=== PATIENT | male | born 1960 | race American Indian/Alaskan Native ===

== ENCOUNTER 2020-12-23 08:39 | Inpatient (IN) | payer OTHER ==
[2020-12-23] MEDS ORDERED: HEPARIN 10,000 UNITS/10 ML VIAL IV PRN (09:13)
--- NOTE | 2020-12-23 09:13 | Emergency Department Report ---
ED General Adult HPI - General Chief complaint: Dyspnea/Respdistress Stated complaint: CP/PEREZ Time Seen by Provider: 12/23/20 09:12 Source: patient Mode of arrival: Ambulatory Limitations: No Limitations - History of Present Illness Initial comments: Patient presents with chest pain. He started having a substernal tightness that started this morning. Symptoms are worse with exertion. He feels short of breath. He has no cough or congestion. There has been no vomiting or diarrhea. There is no recent travel or trauma. Is never had symptoms like this before. He has not been diaphoretic. Patient states that the pain just started this morning. He does not have a history of heart disease. There is no family history of heart disease. He does smoke. ED Review of Systems ROS: Stated complaint: CP/PEREZ Other details as noted in HPI Comment: All other systems reviewed and negative Constitutional: denies: fever Eyes: denies: eye pain ENT: denies: throat pain Respiratory: denies: cough Cardiovascular: as per HPI Endocrine: denies: unexplained weight loss Gastrointestinal: denies: abdominal pain Genitourinary: denies: dysuria Musculoskeletal: denies: back pain Skin: denies: rash Neurological: denies: headache Hematological/Lymphatic: denies: easy bruising ED Past Medical Hx - Past Medical History Previous Medical History?: Yes Additional medical history: Left knee pain - Surgical History Past Surgical History?: Yes Additional Surgical History: left knee surgery - Family History Family history: no significant ( No history of heart disease) - Social History Smoking Status: Current Every Day Smoker Substance Use Type: Alcohol, Marijuana, Other ( we discussed tobacco cessation x3 minutes) ED Physical Exam - General Limitations: No Limitations, Other ( pulse ox was noted normal at 98%) General appearance: alert, in no apparent distress - Head Head exam: Present: atraumatic, normocephalic, normal inspection - Eye Eye exam: Present: normal appearance, EOMI. Absent: scleral icterus - ENT ENT exam: Present: normal exam, normal orophraynx, mucous membranes dry - Neck Neck exam: Present: normal inspection. Absent: meningismus - Respiratory Respiratory exam: Present: normal lung sounds bilaterally. Absent: respiratory distress - Cardiovascular Cardiovascular Exam: Present: normal rhythm - GI/Abdominal GI/Abdominal exam: Present: soft. Absent: distended, tenderness, pulsatile mass - Extremities Exam Extremities exam: Present: normal capillary refill. Absent: pedal edema, calf tenderness - Back Exam Back exam: Absent: CVA tenderness (R), CVA tenderness (L) - Neurological Exam Neurological exam: Present: alert, oriented X3, CN II-XII intact. Absent: motor sensory deficit - Psychiatric Psychiatric exam: Present: anxious - Skin Skin exam: Present: warm, dry ED Course Vital Signs 12/23/20 09:07 Temperature 98.8 F Pulse Rate 68 Respiratory 22 Rate Blood Pressure 123/89 O2 Sat by Pulse 98 Oximetry - Reevaluation(s) Reevaluation #1: 12/23/20 09:13 0910-EKG was noted. Code STEMI was activated. Reevaluation #2: 12/23/20 09:18 Dr. Downs was notified for cardiology. Reevaluation #3: 12/23/20 09:19 Hospitalist was notified ED Medical Decision Making - EKG Data -: EKG Interpreted by Nv EKG shows normal: sinus rhythm, axis, intervals Rate: normal - EKG Data Interpretation: acute TN 12/23/20 09:21 EKG has normal intervals including a QRS of 98 and a QT corrected of 408. There is ST elevation in V2 through V5 with reciprocal changes in 2, 3, aVF. - Medical Decision Making patient presents with chest pain and evidence of STEMI on EKG. Cardiology has been notified. He is taken urgently to the [facility]. The STEMI protocol has been started. We have discussed tobacco cessation. Patient will be admitted. He can be managed further as an inpatient patient has no pulse deficit there was just aortic dissection. Symptoms are nonpleuritic and he has no diminished breath sounds suggestive of pneumothorax. He has no cough or adventitial breath sounds suggestive of pneumonia. He denies recent travel or upper respiratory illness. I do not believe this represents pulmonary embolism or coronavirus. Critical Care Time: Yes Critical care time in (mins) excluding proc time.: 30 Critical care attestation.: If time is entered above; I have spent that time in minutes in the direct care of this critically ill patient, excluding procedure time. ED Disposition Clinical Impression: Tobacco abuse STEMI (ST elevation myocardial infarction) Qualifiers: Involved coronary artery: unspecified coronary artery Qualified Code(s): I21.3 - ST elevation (STEMI) myocardial infarction of unspecified site Disposition: ADMITTED INPATIENT Is pt being admited?: Yes Does the pt Need Aspirin: Yes Condition: Stable
[2020-12-23] MEDS: ASPIRIN 81 MG TAB CHEW PO ONE ×2 (09:29→14:57)
[2020-12-23] MEDS ORDERED: HEPARIN 10,000 UNITS/10 ML VIAL IV ONE (09:30)
[2020-12-23 09:32] LABS: Basophils # (Auto) 0.1 K/mm3 (0.0-0.1); Basophils % (Auto) 0.5 % (0.0-1.8); Eosinophils # (Auto) 0.2 K/mm3 (0.0-0.4); Eosinophils % (Auto) 2.1 % (0.0-4.3); Hematocrit 46.6 % (35.5-45.6); Hemoglobin 15.4 gm/dl (11.8-15.2); Lymphocytes # (Auto) 1.6 K/mm3 (1.2-5.4); Lymphocytes % (Auto) 16.9 % (13.4-35.0); Mean Corpuscular HGB Conc 33 % (32-34); Mean Corpuscular Volume 97 fl (84-94); Monocytes # (Auto) 0.6 K/mm3 (0.0-0.8); Monocytes % (Auto) 6.6 % (0.0-7.3); Platelet Count 174 K/mm3 (140-440); Red Blood Count 4.79 M/mm3 (3.65-5.03); Red Cell Distribution Width 15.6 % (13.2-15.2)
--- NOTE | 2020-12-23 09:39 | XRay Report ---
CHEST 1 VIEW INDICATION / CLINICAL INFORMATION: chest pain. COMPARISON: None available. FINDINGS: SUPPORT DEVICES: None. HEART / MEDIASTINUM: No significant abnormality. LUNGS / PLEURA: No significant pulmonary or pleural abnormality. No pneumothorax. ADDITIONAL FINDINGS: No significant additional findings. IMPRESSION: 1. No acute findings. Signer Name: Kalin Marcus MD Signed: 12/23/2020 9:35 AM Workstation Name: [id number]
[2020-12-23 09:45] LABS: INR 0.98 (0.87-1.13)
[2020-12-23 09:46] LABS: Partial Thromboplastin Time 22.6 Sec. (24.2-36.6)
[2020-12-23] MEDS ORDERED: HEPARIN/NS 5000 UNIT/500ML 1,000 ML IR ONE (09:49)
[2020-12-23] MEDS ORDERED: NITROGLYCERIN SYRINGE 3 ML ONE (09:50)
[2020-12-23] MEDS ORDERED: LIDOCAINE (2%) 20 MG/1 ML VIAL 20 ML MDV INFILTRATI ONE (09:50)
[2020-12-23] MEDS ORDERED: VERAPAMIL 5 MG/2 ML INJ ONE (09:50)
[2020-12-23 09:54] LABS: BUN/Creatinine Ratio 15; Blood Urea Nitrogen 15 mg/dL (9-20); Calcium 9.7 mg/dL (8.4-10.2); Hemolysis Index 9
[2020-12-23] MEDS ORDERED: SODIUM CHLORIDE 0.9% 1000 ML 1,000 ML ONE (09:54)
[2020-12-23] MEDS: HEPARIN 10,000 UNITS/10 ML VIAL ONE ×3 (10:04→10:51)
[2020-12-23] MEDS: MIDAZOLAM 2 MG/2 ML INJ ONE ×2 (10:05→10:16)
[2020-12-23] MEDS: fentaNYL 100 MCG/2 ML INJ ONE ×2 (10:05→10:16)
[2020-12-23] MEDS ORDERED: TIROFIBAN/NS 12,500 MCG/250 ML BAG IV ONE (10:09)
[2020-12-23] MEDS ORDERED: AMIODARONE 150 MG/3 ML INJ IV ONE (10:17)
[2020-12-23] MEDS ORDERED: HEPARIN/NS 5000 UNIT/500ML 500 ML IR ONE (10:29)
[2020-12-23 10:43] LABS: HDL Cholesterol 64 mg/dL (40-59); LDL Cholesterol,Direct 120 mg/dL (50-130)
[2020-12-23] MEDS ORDERED: TICAGRELOR 90 MG TAB ONE (10:50)
[2020-12-23] MEDS ORDERED: NITROGLYCERIN DRIP 50 MG/250 ML BOTTLE ONE (10:52)
[2020-12-23] MEDS ORDERED: ALUM-MAG HYDROXIDE-SIMETHICONE 200-200-20MG/5ML ORAL LIQD 30 ML ONE (11:02)
[2020-12-23] MEDS ORDERED: HYDROcodone/ACETAMINOPHEN 5-325 MG TAB PO PRN (11:13)
[2020-12-23] MEDS ORDERED: NITROGLYCERIN DRIP 50 MG/250 ML BOTTLE IV ONE (11:13)
[2020-12-23] MEDS ORDERED: SODIUM CHLORIDE 0.9% 1000 ML 1,000 ML IV SCH (11:15)
[2020-12-23] MEDS ORDERED: PANTOPRAZOLE 40 MG TAB PO ONE (11:24)
--- NOTE | 2020-12-23 11:31 | Consultation ---
History of Present Illness Consult date: 12/23/20 Requesting physician: YARELY HERNANDEZ Consult reason: chest pain History of present illness: Patient is a 60-year-old male with no significant past medical history who presented via EMS secondary to severe chest pain. Patient apparently woke up with substernal chest pain associated with significant diaphoresis and shortness of breath. Noted to have acute anterior wall ST elevation [place]. Code STEMI was activated. Patient reports no prior cardiac history. Currently on no medications. Has not taken his vaccine yet. Reports no sick contacts. Reports no fever or flulike symptoms. Patient was taken to the [facility] and noted to have 100% occlusion of his LAD. Patient is status post PCI of the LAD. Currently reports no chest pain or shortness of breath. Patient is being admitted to the intensive care unit Past History Past Medical History: No medical history Past Surgical History: No surgical history Social history: smoking Family history: no significant family history Medications and Allergies Allergies Allergy/AdvReac Type Severity Reaction Status Date / Time No Known Allergies Allergy Unverified 12/23/20 09:22 Active Meds: Active Medications Hydrocodone Bitart/Acetaminophen (Hydrocodone/Acetaminophen 5-325 Mg Tab) 1 each PO Q6H PRN PRN Reason: Pain, Moderate (4-6) Aspirin (Aspirin 81 Mg Tab Chew) 81 mg PO QDAY [facility] Atorvastatin Calcium (Atorvastatin 40 Mg Tab) 80 mg PO QHS [facility] Carvedilol (Carvedilol 3.125 Mg Tab) 3.125 mg PO BID [facility] Heparin Sodium (Porcine) (Heparin 10,000 Units/10 Ml Vial) 3,100 unit 40 unit/kg (3100 unit) IV Q6H PRN PRN Reason: Anti-Xa Assay less than 0.1 un Sodium Chloride (Nacl 0.9% 1000 Ml) 1,000 mls @ 50 mls/hr IV DIRECT [facility] Nitroglycerin/Dextrose (Tridil Drip 50mg/250ml) 50 mg in 250 mls @ 3 mls/hr IV TITR ONE; Protocol Stop: 12/26/20 22:32 Tirofiban/Sodium Chloride (Aggrastat Drip (12.5 Mg/250 Ml)) 12,500 mcg in 250 mls @ 0 mls/hr IV DIRECT [facility]ITH[facility]; Protocol Pantoprazole Sodium (Pantoprazole 40 Mg Tab) 40 mg PO DAILY ONE Stop: 12/23/20 11:25 Ticagrelor (Ticagrelor 90 Mg Tab) 90 mg PO BID [facility] Review of Systems All systems: negative (Except as mentioned in H&P) Physical Examination Vital Signs Temp Pulse Resp BP Pulse Ox 98.8 F 68 22 123/89 98 12/23/20 09:07 12/23/20 09:07 12/23/20 09:07 12/23/20 09:07 12/23/20 09:07 General appearance: no acute distress HEENT: Positive: Normocephaly Neck: Positive: neck supple Cardiac: Positive: Reg Rate and Rhythm Lungs: Positive: clear to auscultation Neuro: Positive: Grossly Intact Abdomen: Positive: Unremarkable Male genitourinary: Positive: deferred Skin: Positive: Rash Extremities: Present: normal Results 12/23/20 09:27 12/23/20 09:27 Coagulation 12/23/20 Range/Units 09:27 PT 13.6 (12.2-14.9) Sec. INR 0.98 (0.87-1.13) APTT 22.6 L (24.2-36.6) Sec. Lipids 12/23/20 Range/Units 09:27 Triglycerides 101 (2-149) mg/dL Cholesterol 199 (50-199) mg/dL HDL Cholesterol 64 H (40-59) mg/dL Cholesterol/HDL Ratio 3.10 % CBC 12/23/20 Range/Units 09:27 WBC 9.5 (4.5-11.0) K/mm3 RBC 4.79 (3.65-5.03) M/mm3 Hgb 15.4 H (11.8-15.2) gm/dl Hct 46.6 H (35.5-45.6) % Plt Count 174 (140-440) K/mm3 Lymph # (Auto) 1.6 (1.2-5.4) K/mm3 [place] # (Auto) 0.6 (0.0-0.8) K/mm3 Eos # (Auto) 0.2 (0.0-0.4) K/mm3 Baso # (Auto) 0.1 (0.0-0.1) K/mm3 Comprehensive Metabolic Panel 12/23/20 Range/Units 09:27 Sodium 142 (137-145) mmol/L Potassium 3.9 (3.6-5.0) mmol/L Chloride 105.0 (98-107) mmol/L Carbon Dioxide 24 (22-30) mmol/L BUN 15 (9-20) mg/dL Creatinine 1.0 (0.8-1.3) mg/dL Glucose 140 H (75-100) mg/dL Calcium 9.7 (8.4-10.2) mg/dL EKG interpretations - Telemetry EKG Rhythm: Sinus Bradycardia (Acute anterior wall ST elevation SC) Assessment and Plan Impression 1. Acute anterior ST elevation [place] 2. Status post primary PCI of the totally occluded LAD with drug-eluting stent 3. Residual coronary artery disease including significant mid and distal right coronary artery stenosis, PDA stenosis and [employer]ER of the PLB. Significant stenosis of a small caliber circumflex as well 4. Ischemic cardiomyopathy EF around 15 to 20% Plan 1. Aspirin Brilinta statins and beta-blockers 2. Aggrastat for 18 hours 3. Low-dose nitro (patient had a significantly elevated LVEDP at 40 mmHg) 4. Cautious use of diuretics 5. 2D echo 6. Optimize medical therapy for ischemic 7. Once stable may be referred to [facility] center for PCI of the right coronary artery 8. Condition highly critical.
[2020-12-23] MEDS ORDERED: FUROSEMIDE 20 MG/2 ML INJ IV ONE (11:41)
--- NOTE | 2020-12-23 11:54 | History and Physical Report ---
History of Present Illness Chief complaint: Chest pain History of present illness: Patient is a 60-year-old male with no significant past medical history who presented via EMS secondary to severe chest pain. Patient apparently woke up with substernal chest pain associated with significant diaphoresis and shortness of breath. Noted to have acute anterior wall ST elevation [place]. Code STEMI was activated. Patient reports no prior cardiac history. Currently on no medications. Has not taken his vaccine yet. Reports no sick contacts. Reports no fever or flulike symptoms. Patient was taken to the [facility] and noted to have 100% occlusion of his LAD. Patient is status post PCI of the LAD. Currently reports no chest pain or shortness of breath. Patient is being admitted to the intensive care unit. discussed with cardiology and icu physicians about patient case. Past History Past Medical History: No medical history Past Surgical History: No surgical history Social history: smoking Family history: no significant family history Medications and Allergies Allergies Allergy/AdvReac Type Severity Reaction Status Date / Time No Known Allergies Allergy Unverified 12/23/20 09:22 Active Meds: Active Medications Hydrocodone Bitart/Acetaminophen (Hydrocodone/Acetaminophen 5-325 Mg Tab) 1 each PO Q6H PRN PRN Reason: Pain, Moderate (4-6) Aspirin (Aspirin 81 Mg Tab Chew) 81 mg PO QDAY [facility] Atorvastatin Calcium (Atorvastatin 40 Mg Tab) 80 mg PO QHS [facility] Carvedilol (Carvedilol 3.125 Mg Tab) 3.125 mg PO BID [facility] Furosemide (Furosemide 20 Mg/2 Ml Inj) 20 mg IV TID ONE Stop: 12/23/20 11:42 Heparin Sodium (Porcine) (Heparin 10,000 Units/10 Ml Vial) 3,100 unit 40 unit/kg (3100 unit) IV Q6H PRN PRN Reason: Anti-Xa Assay less than 0.1 un Sodium Chloride (Nacl 0.9% 1000 Ml) 1,000 mls @ 50 mls/hr IV DIRECT [facility] Nitroglycerin/Dextrose (Tridil Drip 50mg/250ml) 50 mg in 250 mls @ 3 mls/hr IV TITR ONE; Protocol Stop: 12/26/20 22:32 Tirofiban/Sodium Chloride (Aggrastat Drip (12.5 Mg/250 Ml)) 12,500 mcg in 250 mls @ 13.5 mls/hr IV DIRECT [facility]; Protocol Stop: 12/24/20 06:00 Ticagrelor (Ticagrelor 90 Mg Tab) 90 mg PO BID [facility] Review of Systems All systems: negative Cardiovascular: chest pain Respiratory: shortness of breath Exam - Constitutional Vitals: Temp Pulse Resp BP Pulse Ox 98.8 F 65 16 136/92 100 12/23/20 09:07 12/23/20 09:31 12/23/20 09:31 12/23/20 09:31 12/23/20 09:31 - EENT Eyes: Present: PERRL, EOM intact ENT: hearing intact, clear oral mucosa, dentition normal - Neck Neck: Present: supple, normal ROM - Respiratory Respiratory effort: normal - Extremities Extremities: no ischemia, pulses intact, pulses symmetrical Peripheral Pulses: within normal limits - Abdominal General gastrointestinal: Present: non-tender, non-distended, normal bowel sounds - Integumentary Integumentary: Present: clear (plesae refer to nursing assessement for full exam.), warm, dry HEART Score - HEART Score Troponin: Troponin T 0.224 ng/mL (0.00-0.029) H* 12/23/20 09:27 Results - Labs CBC & Chem 7: 12/23/20 09:27 12/23/20 09:27 Labs: Laboratory Last Values WBC 9.5 K/mm3 (4.5-11.0) 12/23/20 09:27 RBC 4.79 M/mm3 (3.65-5.03) 12/23/20 09:27 Hgb 15.4 gm/dl (11.8-15.2) H 12/23/20 09:27 Hct 46.6 % (35.5-45.6) H 12/23/20 09:27 MCV 97 fl (84-94) H 12/23/20 09:27 MCH 32 pg (28-32) 12/23/20 09:27 MCHC 33 % (32-34) 12/23/20 09:27 RDW 15.6 % (13.2-15.2) H 12/23/20 09:27 Plt Count 174 K/mm3 (140-440) 12/23/20 09:27 Lymph % (Auto) 16.9 % (13.4-35.0) 12/23/20 09:27 [place] % (Auto) 6.6 % (0.0-7.3) 12/23/20 09: Eos % (Auto) 2.1 % (0.0-4.3) 12/23/20 09: Baso % (Auto) 0.5 % (0.0-1.8) 12/23/20 09: Lymph # (Auto) 1.6 K/mm3 (1.2-5.4) 12/23/20 09: [place] # (Auto) 0.6 K/mm3 (0.0-0.8) 12/23/20 09: Eos # (Auto) 0.2 K/mm3 (0.0-0.4) 12/23/20 09: Baso # (Auto) 0.1 K/mm3 (0.0-0.1) 12/23/20 09: Seg Neutrophils % 73.9 % (40.0-70.0) H 12/23/20 09: Seg Neutrophils # 7.0 K/mm3 (1.8-7.7) 12/23/20 09: PT 13.6 Sec. (12.2-14.9) 12/23/20 09: INR 0.98 (0.87-1.13) 12/23/20 09: APTT 22.6 Sec. (24.2-36.6) L 12/23/20 09:27 Sodium 142 mmol/L (137-145) 12/23/20 09: Potassium 3.9 mmol/L (3.6-5.0) 12/23/20 09: Chloride 105.0 mmol/L (98-107) 12/23/20 09: Carbon Dioxide 24 mmol/L (22-30) 12/23/20 09: Anion Gap 17 mmol/L 12/23/20 09: BUN 15 mg/dL (9-20) 12/23/20 09: Creatinine 1.0 mg/dL (0.8-1.3) 12/23/20 09: Estimated GFR > 60 ml/min 12/23/20 09: BUN/Creatinine Ratio 15 % 12/23/20 09: Glucose 140 mg/dL (75-100) H 12/23/20 09:27 Calcium 9.7 mg/dL (8.4-10.2) 12/23/20 09: Troponin T 0.224 ng/mL (0.00-0.029) H* 12/23/20 09: Triglycerides 101 mg/dL (2-149) 12/23/20 09: Cholesterol 199 mg/dL (50-199) 12/23/20 09: LDL Cholesterol Direct 120 mg/dL (50-130) 12/23/20 09: HDL Cholesterol 64 mg/dL (40-59) H 12/23/20 09: Cholesterol/HDL Ratio 3.10 % 12/23/20 09: Blood Type O POSITIVE 12/23/20 09: Antibody Screen Negative 12/23/20 09: Assessment and Plan Assessment and plan: STEMI Intervention by Dr. Downs on 12/23/2020. Cath impression per cardiology 1. Acute anterior ST elevation [place] 2. Status post primary PCI of the totally occluded LAD with drug-eluting stent 3. Residual coronary artery disease including significant mid and distal right coronary artery stenosis, PDA stenosis and [employer] M[employer] of the PLB. Significant stenosis of a small caliber circumflex as well 4. Ischemic cardiomyopathy EF around 15 to 20% Troponin 0.224 Chest x-ray negative Admit to ICU for postop management Nitro drip Aggrastat for 18 hours Aspirin/Brilinta/BB/statin ICU consultation Cardiology following, recommends possible transfer for [employer] intervention on RCA. Nicotine abuse Counseled on smoking cessation 10+ minutes
--- NOTE | 2020-12-23 11:54 | Progress Note ---
Hospitalist Physical - Constitutional Vitals: Temp Pulse Resp BP Pulse Ox 98.8 F 65 16 136/92 100 12/23/20 09:07 12/23/20 09:31 12/23/20 09:31 12/23/20 09:31 12/23/20 09:31 General appearance: Present: no acute distress HEART Score - HEART Score Troponin: Troponin T 0.224 ng/mL (0.00-0.029) H* 12/23/20 09:27 Results - Labs CBC & Chem 7: 12/23/20 09:27 12/23/20 09:27 Labs: Laboratory Last Values WBC 9.5 K/mm3 (4.5-11.0) 12/23/20 09: RBC 4.79 M/mm3 (3.65-5.03) 12/23/20 09: Hgb 15.4 gm/dl (11.8-15.2) H 12/23/20 09: Hct 46.6 % (35.5-45.6) H 12/23/20 09: MCV 97 fl (84-94) H 12/23/20 09: MCH 32 pg (28-32) 12/23/20 09: MCHC 33 % (32-34) 12/23/20 09: RDW 15.6 % (13.2-15.2) H 12/23/20 09: Plt Count 174 K/mm3 (140-440) 12/23/20 09: Lymph % (Auto) 16.9 % (13.4-35.0) 12/23/20 09: [place] % (Auto) 6.6 % (0.0-7.3) 12/23/20 09: Eos % (Auto) 2.1 % (0.0-4.3) 12/23/20 09: Baso % (Auto) 0.5 % (0.0-1.8) 12/23/20: Lymph # (Auto) 1.6 K/mm3 (1.2-5.4) 12/23/20 09: [place] # (Auto) 0.6 K/mm3 (0.0-0.8) 12/23/20 09: Eos # (Auto) 0.2 K/mm3 (0.0-0.4) 12/23/20 09: Baso # (Auto) 0.1 K/mm3 (0.0-0.1) 12/23/20 09: Seg Neutrophils % 73.9 % (40.0-70.0) H 12/23/20 09: Seg Neutrophils # 7.0 K/mm3 (1.8-7.7) 12/23/20 09: PT 13.6 Sec. (12.2-14.9) 12/23/20 09: INR 0.98 (0.87-1.13) 12/23/20 09: APTT 22.6 Sec. (24.2-36.6) L 12/23/20 09: Sodium 142 mmol/L (137-145) 12/23/20 09: Potassium 3.9 mmol/L (3.6-5.0) 12/23/20 09: Chloride 105.0 mmol/L (98-107) 12/23/20 09: Carbon Dioxide 24 mmol/L (22-30) 12/23/20 09: Anion Gap 17 mmol/L 12/23/20 09: BUN 15 mg/dL (9-20) 12/23/20 09: Creatinine 1.0 mg/dL (0.8-1.3) 12/23/20 09: Estimated GFR > 60 ml/min 12/23/20 09: BUN/Creatinine Ratio 15 % 12/23/20 09: Glucose 140 mg/dL (75-100) H 12/23/20 09: Calcium 9.7 mg/dL (8.4-10.2) 12/23/20 09: Troponin T 0.224 ng/mL (0.00-0.029) H* 12/23/20 09: Triglycerides 101 mg/dL (2-149) 12/23/20 09: Cholesterol 199 mg/dL (50-199) 12/23/20 09: LDL Cholesterol Direct 120 mg/dL (50-130) 12/23/20 09: HDL Cholesterol 64 mg/dL (40-59) H 12/23/20 09: Cholesterol/HDL Ratio 3.10 % 12/23/20 09: Blood Type O POSITIVE 12/23/20 09:27 Antibody Screen Negative 12/23/20 09:27 Active Medications - Current Medications Current Medications: Generic Name Dose Route Start Last Admin Trade Name Freq PRN Reason Stop Dose Admin Hydrocodone Bitart/Acetaminophen 1 each 12/23/20 11:13 Hydrocodone/Acetaminophen 5-325 Mg Tab PO Q6H PRN Pain, Moderate (4-6) Aspirin 81 mg 12/24/20 10:00 Aspirin 81 Mg Tab Chew PO QDAY [facility] Atorvastatin Calcium 80 mg 12/23/20 22:00 Atorvastatin 40 Mg Tab PO QHS [facility] Carvedilol 3.125 mg 12/23/20 22:00 Carvedilol 3.125 Mg Tab PO BID [facility] Furosemide 20 mg 12/23/20 11:41 Furosemide 20 Mg/2 Ml Inj IV 12/23/20 11:42 TID ONE Heparin Sodium (Porcine) 3,100 unit 12/23/20 09:13 Heparin 10,000 Units/10 Ml Vial 40 unit/kg (3100 unit) IV Q6H PRN Anti-Xa Assay less than 0.1 un Sodium Chloride 1,000 mls @ 50 mls/hr 12/23/20 11:15 Nacl 0.9% 1000 Ml IV DIRECT [facility] Nitroglycerin/Dextrose 50 mg in 250 mls @ 3 mls/hr 12/23/20 11:13 Tridil Drip 50mg/250ml IV 12/26/20 22:32 TITR ONE Protocol 10 MCG/MIN Tirofiban/Sodium Chloride 12,500 mcg in 250 mls @ 13.5 mls/hr 12/23/20 12:00 Aggrastat Drip (12.5 Mg/250 Ml) IV 12/24/20 06:00 DIRECT KAVITHA Protocol Per Protocol Ticagrelor 90 mg 12/23/20 22:00 Ticagrelor 90 Mg Tab PO BID [facility]
[2020-12-23] MEDS ORDERED: FUROSEMIDE 20 MG/2 ML INJ ONE (11:56)
[2020-12-23] MEDS ORDERED: TIROFIBAN/NS 12,500 MCG/250 ML BAG IV SCH (12:00)
--- NOTE | 2020-12-23 12:28 | Electrocardiograph Report ---
[facility] Test Date: 2020-12-23 Test Time: 09:07:27 Pat Name: BRISEIDA RODRIGUEZ Department: Room: [place] [address] Gender: M Mold Holder: CONNIE : 1960 Requested By: CLAYTON DU Order Number: [id number] Reading MD: Dimitri Morrell Measurements Intervals [place] Rate: 59 P: 71 TX: 135 QRS: -26 QRSD: 98 T: -51 QT: 408 QTc: 406 Interpretive Statements Sinus bradycardia Probable left atrial enlargement Anterior infarct, acute No previous ECG available for comparison Electronically Signed On 12-23-2020 12:28:22 EDT by Dimitri Morrell
[2020-12-23] MEDS ORDERED: ONDANSETRON 4 MG/2 ML INJ IV PRN (15:08)
[2020-12-23] MEDS ORDERED: ONDANSETRON 4 MG/2 ML INJ ONE (15:09)
[2020-12-23] MEDS: carvediloL 3.125 MG TAB PO SCH (23:00)
[2020-12-23] MEDS: TICAGRELOR 90 MG TAB PO SCH (23:00)
[2020-12-24 06:24] LABS: Basophils % (Auto) 0.2 % (0.0-1.8); Eosinophils % (Auto) 0.1 % (0.0-4.3); Hematocrit 45.5 % (35.5-45.6); Hemoglobin 15.1 gm/dl (11.8-15.2); Lymphocytes # (Auto) 0.8 K/mm3 (1.2-5.4); Lymphocytes % (Auto) 6.7 % (13.4-35.0); Mean Corpuscular HGB Conc 33 % (32-34); Mean Corpuscular Volume 98 fl (84-94); Monocytes % (Auto) 8.1 % (0.0-7.3); Platelet Count 152 K/mm3 (140-440); Red Blood Count 4.66 M/mm3 (3.65-5.03); Red Cell Distribution Width 15.4 % (13.2-15.2)
[2020-12-24 06:51] LABS: Alanine Aminotransferase 92 units/L (7-56); Albumin 3.6 g/dL (3.9-5); BUN/Creatinine Ratio 20; Blood Urea Nitrogen 20 mg/dL (9-20); Calcium 8.8 mg/dL (8.4-10.2); Hemolysis Index 176
--- NOTE | 2020-12-24 07:25 | Progress Note ---
Assessment and Plan Assessment and plan: Patient is a 60-year-old male with no significant past medical history who presented via EMS secondary to severe chest pain. Taken to photonic laboratory technician by Dr. Downs on 12/23/2020 with subsequent SHE placement in LAD. Hospital course to date 12/24/2020: Patient vitals show tachypneic respiration and patient now requiring 2 L nasal cannula. Interval development of pulmonary edema this morning as demonstrated on the chest x-ray. Discontinued IV maintenance fluids and ordered Lasix 40 mg IV x1. Negative for influenza and covid. Additional dose of Lasix this evening ordered. Will follow pulm and cardio recs Assessment and plan #[address] Downs on 12/23/2020. Cath impression per cardiology 1. Acute anterior ST elevation CT 2. Status post primary PCI of the totally occluded LAD with drug-eluting stent 3. 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 Significant stenosis of a small caliber circumflex as well 4. Ischemic cardiomyopathy EF around 15 to 20% Troponin 0.224 Chest x-ray negative Admit to ICU for postop management Nitro drip Aggrastat for 18 hours Aspirin/Brilinta/BB/statin ICU consultation Cardiology following, recommends possible transfer for TOBACCO FEEDER CATCHER intervention on RCA. #2 Heart Failure with Reduced Ejection Fraction - EF : 20% - management as above - discontinued IVF. #3 Pulmonary edema - hypoxic and sob this AM - cxr demonstrates pulmonary edema, likely from fluid overload - lasix 40 mg iv x 2 - follow echo cardiogram. #4 Nicotine abuse Counseled on smoking cessation 10+ minutes The high probability of a clinically significant, sudden or life threatening deterioration of the [cardiac, pulm] system(s) required my full and direct attention, intervention and personal management. The aggregate critical care time was [60] minutes. This time is in addition to time spent performing reported procedures but includes the following: [x] Data Review and interpretation [x] Patient assessment and monitoring of vital signs [x] Documentation [x] Medication orders and management Total Time Spent with Patient (Minutes): 60 History Interval history: This a.m. patient became short of breath, had fever. Chest x-ray Covid test and flu test ordered. Pulmonary edema identified on chest x-ray given one-time dose of Lasix. No acute complaints on encounter. Patient states he is chest pain-free and has no complaints otherwise. Hospitalist Physical - Physical exam Narrative exam: Physical Exam: VITAL SIGNS: Reviewed. GENERAL: The patient appears normally developed, Vital signs as documented. on 2 l NC HEAD: No signs of head trauma. EYES: Pupils are equal. Extraocular motions intact. EARS: Hearing grossly intact. MOUTH: Oropharynx is normal. NECK: No adenopathy, no JVD. CHEST: Chest with clear breath sounds bilaterally. No wheezes, rales, or rhonchi. CARDIAC: Regular rate and rhythm. S1 and S2, without murmurs, gallops, or rubs. VASCULAR: No Edema. Peripheral pulses normal and equal in all extremities. ABDOMEN: Soft, non tender and non distended. No rebound or guarding, and no masses palpated. Bowel Sounds normal. MUSCULOSKELETAL: Good range of motion of all major joints. Extremities without clubbing, cyanosis or edema. NEUROLOGIC EXAM: Alert although orientation could not be verified as patient withdrawn no focal sensory or strength deficits. PSYCHIATRIC: Mood normal. SKIN: detail exam as documented in skin assessment - Constitutional Vitals: Temp Pulse Resp BP Pulse Ox 100.2 F H 82 34 H 136/90 97 12/24/20 04:00 12/24/20 07:00 12/24/20 07:00 12/24/20 07:00 12/24/20 07:00 General appearance: Present: no acute distress HEART Score - HEART Score Troponin: Troponin T 5.440 ng/mL (0.00-0.029) H* D 12/24/20 05:59 Results - Labs CBC & Chem 7: 12/24/20 05:59 12/24/20 09:47 Labs: Laboratory Last Values WBC 11.9 K/mm3 (4.5-11.0) H 12/24/20 05:59 RBC 4.66 M/mm3 (3.65-5.03) 12/24/20 05:59 Hgb 15.1 gm/dl (11.8-15.2) 12/24/20 05:59 Hct 45.5 % (35.5-45.6) 12/24/20 05:59 MCV 98 fl (84-94) H 12/24/20 05:59 MCH 32 pg (28-32) 12/24/20 05:59 MCHC 33 % (32-34) 12/24/20 05:59 RDW 15.4 % (13.2-15.2) H 12/24/20 05:59 Plt Count 152 K/mm3 (140-440) 12/24/20 05:59 Lymph % (Auto) 6.7 % (13.4-35.0) L 12/24/20 05:59 [place] % (Auto) 8.1 % (0.0-7.3) H 12/24/20 05:59 Eos % (Auto) 0.1 % (0.0-4.3) 12/24/20 05:59 Baso % (Auto) 0.2 % (0.0-1.8) 12/24/20 05:59 Lymph # (Auto) 0.8 K/mm3 (1.2-5.4) L 12/24/20 05:59 [place] # (Auto) 1.0 K/mm3 (0.0-0.8) H 12/24/20 05:59 Eos # (Auto) 0.0 K/mm3 (0.0-0.4) 12/24/20 05:59 Baso # (Auto) 0.0 K/mm3 (0.0-0.1) 12/24/20 05:59 Seg Neutrophils % 84.9 % (40.0-70.0) H 12/24/20 05:59 Seg Neutrophils # 10.1 K/mm3 (1.8-7.7) H 12/24/20 05:59 PT 13.6 Sec. (12.2-14.9) 12/23/20 09:27 INR 0.98 (0.87-1.13) 12/23/20 09:27 APTT 22.6 Sec. (24.2-36.6) L 12/23/20 09:27 Sodium 138 mmol/L (137-145) 12/24/20 05:59 Potassium 5.7 mmol/L (3.6-5.0) H D 12/24/20 05:59 Chloride 103.6 mmol/L (98-107) 12/24/20 05:59 Carbon Dioxide 23 mmol/L (22-30) 12/24/20 05:59 Anion Gap 17 mmol/L 12/24/20 05:59 BUN 20 mg/dL (9-20) 12/24/20 05:59 Creatinine 1.0 mg/dL (0.8-1.3) 12/24/20 05:59 Estimated GFR > 60 ml/min 12/24/20 05:59 BUN/Creatinine Ratio 20 % 12/24/20 05:59 Glucose 114 mg/dL (75-100) H 12/24/20 05:59 Calcium 8.8 mg/dL (8.4-10.2) 12/24/20 05:59 Total Bilirubin 1.40 mg/dL (0.1-1.2) H 12/24/20 05:59 AST 347 units/L (5-40) H 12/24/20 05:59 ALT 92 units/L (7-56) H 12/24/20 05:59 Alkaline Phosphatase 73 units/L (35-129) 12/24/20 05:59 Troponin T 5.440 ng/mL (0.00-0.029) H* D 12/24/20 05:59 Total Protein 7.0 g/dL (6.3-8.2) 12/24/20 05:59 Albumin 3.6 g/dL (3.9-5) L 12/24/20 05:59 Albumin/Globulin Ratio 1.1 % 12/24/20 05:59 Triglycerides 101 mg/dL (2-149) 12/23/20 09:27 Cholesterol 199 mg/dL (50-199) 12/23/20 09:27 LDL Cholesterol Direct 120 mg/dL (50-130) 12/23/20 09:27 HDL Cholesterol 64 mg/dL (40-59) H 12/23/20 09:27 Cholesterol/HDL Ratio 3.10 % 12/23/20 09:27 Blood Type O POSITIVE 12/23/20 09:27 Antibody Screen Negative 12/23/20 09:27 Lucero/IV: Voiding Method Urinal Active Medications - Current Medications Current Medications: Generic Name Dose Route Start Last Admin Trade Name Freq PRN Reason Stop Dose Admin Hydrocodone Bitart/Acetaminophen 1 each 12/23/20 11:13 Hydrocodone/Acetaminophen 5-325 Mg Tab PO Q6H PRN Pain, Moderate (4-6) Aspirin 81 mg 12/24/20 10:00 Aspirin 81 Mg Tab Chew PO QDAY KAVITHA Atorvastatin Calcium 80 mg 12/23/20 22:00 12/23/20 23:00 Atorvastatin 40 Mg Tab PO 80 mg QHS KAVITHA Administration Carvedilol 3.125 mg 12/23/20 22:00 12/23/20 23:00 Carvedilol 3.125 Mg Tab PO 3.125 mg BID KAVITHA Administration Heparin Sodium (Porcine) 3,100 unit 12/23/20 09:13 Heparin 10,000 Units/10 Ml Vial 40 unit/kg (3100 unit) IV Q6H PRN Anti-Xa Assay less than 0.1 un Sodium Chloride 1,000 mls @ 50 mls/hr 12/23/20 11:15 12/23/20 15:27 Nacl 0.9% 1000 Ml IV 50 mls/hr DIRECT KAVITHA Administration Nitroglycerin/Dextrose 50 mg in 250 mls @ 3 mls/hr 12/23/20 11:13 12/23/20 11:13 Tridil Drip 50mg/250ml IV 12/26/20 22:32 10 mcg/min TITR ONE 3 mls/hr Administration Protocol 10 MCG/MIN Ondansetron HCl 4 mg 12/23/20 15:08 12/23/20 15:18 Ondansetron 4 Mg/2 Ml Inj IV 4 mg Q4H PRN Administration Nausea And Vomiting Ticagrelor 90 mg 12/23/20 22:00 12/23/20 23:00 Ticagrelor 90 Mg Tab PO 90 mg BID KAVITHA Administration
--- NOTE | 2020-12-24 08:27 | XRay Report ---
CHEST 1 VIEW 12/24/2020 7:47 AM INDICATION / CLINICAL INFORMATION: hypoxia. COMPARISON: 12/23/20 FINDINGS: SUPPORT DEVICES: None. HEART / MEDIASTINUM: No significant abnormality. LUNGS / PLEURA: Interval development of moderate bilateral pulmonary edema, right greater than left. Evelia B-lines at the right lung base. No pneumothorax. ADDITIONAL FINDINGS: No significant additional findings. IMPRESSION: 1. Interval development of moderate pulmonary edema. Signer Name: Flora Fair MD Signed: 12/24/2020 8:22 AM Workstation Name: [email or web address]
[2020-12-24] MEDS: carvediloL 3.125 MG TAB PO SCH (09:14)
[2020-12-24] MEDS: ASPIRIN 81 MG TAB CHEW PO SCH (09:15)
[2020-12-24] MEDS: TICAGRELOR 90 MG TAB PO SCH ×2 (09:15→21:31)
[2020-12-24] MEDS ORDERED: FUROSEMIDE 40 MG/4 ML INJ IV NR (10:00)
--- NOTE | 2020-12-24 12:33 | Consultation ---
History of Present Illness Consult date: 12/24/20 Requesting physician: MALIK LONG Reason for consult: hypoxemia, other (STEMI with pulmonary edema and CHF) History of present illness: 60 y/o male admitted with STEMI, taken to collaborative physician and stented. Found to have very low EF but echo not done yet. Last night eventful as he had increasing oxygen requirement along with fever and generalized body aches. Today awake and alert on nasal cannula with sat of 92%. Still on nitro drip. Taking PO meds. Remainder is negative. Past History Past Medical History: No medical history Past Surgical History: No surgical history Social history: smoking Family history: no significant family history Medications and Allergies Allergies Allergy/AdvReac Type Severity Reaction Status Date / Time No Known Allergies Allergy Unverified 12/23/20 09:22 Home Medications Medication Instructions Recorded Confirmed Last Taken Type No Known Home Medications [No 12/23/20 12/23/20 Unknown History Reported Home Medications] Active Meds: Active Medications Hydrocodone Bitart/Acetaminophen (Hydrocodone/Acetaminophen 5-325 Mg Tab) 1 each PO Q6H PRN PRN Reason: Pain, Moderate (4-6) Aspirin (Aspirin 81 Mg Tab Chew) 81 mg PO QDAY [facility] Last Admin: 12/24/20 09:15 Dose: 81 mg Documented by: Atorvastatin Calcium (Atorvastatin 40 Mg Tab) 80 mg PO QHS [facility] Last Admin: 12/23/20 23:00 Dose: 80 mg Documented by: Carvedilol (Carvedilol 3.125 Mg Tab) 3.125 mg PO BID [facility] Last Admin: 12/24/20 09:14 Dose: 3.125 mg Documented by: Furosemide (Furosemide 40 Mg/4 Ml Inj) 40 mg IV ONCE@1000 NR Stop: 12/24/20 14:00 Last Admin: 12/24/20 09:17 Dose: 40 mg Documented by: Isosorbide Mononitrate (Isosorbide Mononitrate Er 30 Mg Tab) 30 mg PO QDAY [facility] Ondansetron HCl (Ondansetron 4 Mg/2 Ml Inj) 4 mg IV Q4H PRN PRN Reason: Nausea And Vomiting Last Admin: 12/23/20 15:18 Dose: 4 mg Documented by: Ticagrelor (Ticagrelor 90 Mg Tab) 90 mg PO BID [facility] Last Admin: 12/24/20 09:15 Dose: 90 mg Documented by: Review of Systems All systems: negative Physical Examination Vital signs: Vital Signs Temp Pulse Resp BP Pulse Ox 98.8 F 68 22 123/89 98 12/23/20 09:07 12/23/20 09:07 12/23/20 09:07 12/23/20 09:07 12/23/20 09:07 General appearance: no acute distress, alert Eyes: non-icteric ENT: oropharynx moist Neck: supple Ascultation: Bilateral: rales Results - Laboratory Findings CBC and BMP: 12/24/20 05:59 12/24/20 09:47 PT/INR, D-dimer PT 13.6 Sec. (12.2-14.9) 12/23/20 09:27 INR 0.98 (0.87-1.13) 12/23/20 09:27 Abnormal lab findings: Abnormal Labs 12/23/20 12/23/20 12/23/20 09:27 09:27 09:27 WBC Hgb 15.4 H Hct 46.6 H MCV 97 H RDW 15.6 H Lymph % (Auto) [place] % (Auto) Lymph # (Auto) [place] # (Auto) Seg Neutrophils % 73.9 H Seg Neutrophils # APTT 22.6 L Potassium Glucose 140 H Total Bilirubin AST ALT Troponin T 0.224 H* Albumin HDL Cholesterol 64 H 12/23/20 12/23/20 12/24/20 13:27 14:55 05:59 WBC 11.9 H Hgb Hct MCV 98 H RDW 15.4 H Lymph % (Auto) 6.7 L [place] % (Auto) 8.1 H Lymph # (Auto) 0.8 L [place] # (Auto) 1.0 H Seg Neutrophils % 84.9 H Seg Neutrophils # 10.1 H APTT Potassium Glucose Total Bilirubin AST ALT Troponin T 6.560 H* D 11.130 H* D Albumin HDL Cholesterol 12/24/20 05:59 WBC Hgb Hct MCV RDW Lymph % (Auto) [place] % (Auto) Lymph # (Auto) [place] # (Auto) Seg Neutrophils % Seg Neutrophils # APTT Potassium 5.7 H D Glucose 114 H Total Bilirubin 1.40 H AST 347 H ALT 92 H Troponin T 5.440 H* D Albumin 3.6 L HDL Cholesterol - Diagnostic Findings Chest x-ray: image reviewed Assessment and Plan 60 y/o male with STEMI, systolic heart failure now with fever and generalized body aches. 1. Stopped nitro drip and added daily imdur therapy 2. BB, statin already on board. NO nettie, not sure why, will defer to cards. May end up needing prabhjot if repeat echo several months from now shows per sistently depressed EF 3. Agree with Isolation for now. COVID done but flu not ordered so ordered as well. If flu positive will place on tamiflu. If covid positive experimental therapy 4. Patient appears stable and pending COVID results could either go to tele if negative or COVID floor with remote tele if positive. 5. Will give an additional dose of lasix at around shift change to help with volume removal, but now that drip is off should improve. Guarded prognosis.
--- NOTE | 2020-12-24 16:14 | Progress Note ---
Assessment and Plan Impression 1. Acute anterior ST elevation CA 2. Status post primary PCI of the totally occluded LAD with drug-eluting stent 3. 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 Significant stenosis of a small caliber circumflex as well 4. Ischemic cardiomyopathy EF around 15 to 20% Plan Continue aspirin, ticagrelor, carvedilol, and atorvastatin. Given positive orthostatic vitals earlier this afternoon, will hold Imdur. Start GIANNA inhibitor/ARB as tolerated by BP. Continue IV diuresis as tolerated. Await echo. Once stable may be referred to [facility] center for PCI of the right coronary artery. Advised on importance of compliance with medications and follow-up. Smoking cessation counseling provided. Subjective Date of service: 12/24/20 Interval history: No events. Denies chest pain or shortness of breath. Now off nitroglycerin drip and has been started on Imdur. Orthostatics positive today. -290 mL today. Telemetrysinus rhythm, no events Objective Vital Signs Temp Pulse Pulse Pulse Resp BP BP 12/24/20 15:00 113 H 97 H 22 102/84 122/72 12/24/20 14:30 85 22 124/85 12/24/20 14:00 87 21 122/88 12/24/20 13:30 85 21 133/88 12/24/20 13:05 82 139/93 12/24/20 13:00 88 31 H 139/93 12/24/20 12:30 84 35 H 132/90 12/24/20 12:00 97 H 95 H 29 H 135/85 12/24/20 11:30 86 33 H 136/91 12/24/20 11:00 87 19 126/94 12/24/20 10:30 88 23 130/91 12/24/20 10:00 86 30 H 131/92 12/24/20 09:31 90 25 H 138/79 12/24/20 09:14 95 H 136/93 12/24/20 09:00 91 H 26 H 136/93 12/24/20 08:30 94 H 19 139/93 12/24/20 08:00 99.4 F 88 90 27 H 136/94 12/24/20 07:30 89 19 142/89 12/24/20 07:00 82 34 H 136/90 12/24/20 06:00 87 14 132/89 12/24/20 05:45 85 14 134/88 12/24/20 05:30 82 16 131/98 12/24/20 05:15 79 79 22 129/89 12/24/20 05:00 79 18 132/92 12/24/20 04:45 83 15 134/86 12/24/20 04:30 91 H 20 131/91 12/24/20 04:15 94 H 20 125/84 12/24/20 04:05 77 12/24/20 04:00 100.2 F H 92 H 17 118/88 12/24/20 03:45 93 H 16 120/81 12/24/20 03:30 79 16 126/86 12/24/20 03:15 89 13 125/85 12/24/20 03:00 81 20 125/85 12/24/20 02:45 76 16 123/86 12/24/20 02:30 89 10 L 126/72 12/24/20 02:15 82 20 127/92 12/24/20 02:00 91 H 25 H 110/73 12/24/20 01:45 79 20 123/87 12/24/20 01:30 89 13 123/87 12/24/20 01:15 88 22 115/80 12/24/20 01:00 86 20 114/78 12/24/20 00:45 76 22 123/81 12/24/20 00:30 85 19 127/86 12/24/20 00:15 86 24 117/70 12/24/20 00:05 87 12/24/20 00:00 101.2 F H 85 25 H 118/77 12/23/20 23:45 86 26 H 122/70 12/23/20 23:30 81 25 H 115/74 12/23/20 23:27 93 H 24 126/87 12/23/20 23:15 81 17 126/87 12/23/20 23:01 88 14 117/80 12/23/20 23:00 90 117/80 12/23/20 22:45 86 18 116/69 12/23/20 22:30 80 30 H 112/73 12/23/20 22:15 94 H 26 H 115/74 12/23/20 22:00 79 30 H 112/67 12/23/20 21:45 76 16 117/77 12/23/20 21:30 75 22 117/79 12/23/20 21:15 79 15 116/77 12/23/20 21:00 76 13 109/73 12/23/20 20:45 77 15 119/74 12/23/20 20:30 77 70 18 117/77 12/23/20 20:15 67 11 L 119/78 12/23/20 20:01 77 15 106/70 12/23/20 20:00 99.8 F H 12/23/20 19:45 71 13 120/84 12/23/20 19:30 69 16 109/70 12/23/20 19:15 71 25 H 113/72 12/23/20 19:00 83 19 125/79 12/23/20 18:45 67 24 117/79 12/23/20 18:30 69 21 119/82 12/23/20 18:15 65 20 109/75 12/23/20 18:00 73 23 124/81 12/23/20 17:45 68 22 121/82 12/23/20 17:30 71 21 128/83 12/23/20 17:15 65 15 123/82 12/23/20 17:00 66 20 122/83 12/23/20 16:45 67 24 124/83 12/23/20 16:30 67 24 127/87 12/23/20 16:15 83 21 123/87 Pulse Ox 12/24/20 15:00 90 12/24/20 14:30 97 12/24/20 14:00 96 12/24/20 13:30 93 12/24/20 13:05 12/24/20 13:00 92 12/24/20 12:30 90 12/24/20 12:00 90 12/24/20 11:30 94 12/24/20 11:00 92 12/24/20 10:30 89 12/24/20 10:00 91 12/24/20 09:31 86 12/24/20 09:14 12/24/20 09:00 90 12/24/20 08:30 88 12/24/20 08:00 95 12/24/20 07:30 97 12/24/20 07:00 97 12/24/20 06:00 91 12/24/20 05:45 91 12/24/20 05:30 92 12/24/20 05:15 93 12/24/20 05:00 91 12/24/20 04:45 89 12/24/20 04:30 86 12/24/20 04:15 89 12/24/20 04:05 12/24/20 04:00 87 12/24/20 03:45 88 12/24/20 03:30 90 12/24/20 03:15 86 12/24/20 03:00 88 12/24/20 02:45 91 12/24/20 02:30 91 12/24/20 02:15 93 12/24/20 02:00 91 12/24/20 01:45 90 12/24/20 01:30 92 12/24/20 01:15 91 12/24/20 01:00 90 12/24/20 00:45 92 12/24/20 00:30 91 12/24/20 00:15 88 12/24/20 00:05 12/24/20 00:00 12/23/20 23:45 90 12/23/20 23:30 89 12/23/20 23:27 90 12/23/20 23:15 93 12/23/20 23:01 12/23/20 23:00 12/23/20 22:45 90 12/23/20 22:30 92 12/23/20 22:15 90 12/23/20 22:00 12/23/20 21:45 12/23/20 21:30 93 12/23/20 21:15 94 12/23/20 21:00 94 12/23/20 20:45 92 12/23/20 20:30 92 12/23/20 20:15 94 12/23/20 20:01 12/23/20 20:00 12/23/20 19:45 94 12/23/20 19:30 12/23/20 19:15 95 12/23/20 19:00 94 12/23/20 18:45 95 12/23/20 18:30 95 12/23/20 18:15 97 12/23/20 18:00 96 12/23/20 17:45 96 12/23/20 17:30 95 12/23/20 17:15 96 12/23/20 17:00 95 12/23/20 16:45 12/23/20 16:30 12/23/20 16:15 95 - Physical Examination Narrative exam: Gen-NAD, comfortable Neck-supple, no JVD CV-RRR, no murmurs Lungs-CTAB, on nasal cannula oxygen Abd-soft/nt/nd Ext-warm to touch, no edema Neuro-alert and oriented, no gross focal deficits Psych-affect normal - Labs and Meds Cardiac Enzymes 12/24/20 Range/Units 05:59 AST 347 H (5-40) units/L CBC 12/24/20 Range/Units 05:59 WBC 11.9 H (4.5-11.0) K/mm3 RBC 4.66 (3.65-5.03) M/mm3 Hgb 15.1 (11.8-15.2) gm/dl Hct 45.5 (35.5-45.6) % Plt Count 152 (140-440) K/mm3 Lymph # (Auto) 0.8 L (1.2-5.4) K/mm3 [place] # (Auto) 1.0 H (0.0-0.8) K/mm3 Eos # (Auto) 0.0 (0.0-0.4) K/mm3 Baso # (Auto) 0.0 (0.0-0.1) K/mm3 Comprehensive Metabolic Panel 12/24/20 12/24/20 Range/Units 05:59 09:47 Sodium 138 (137-145) mmol/L Potassium 5.7 H D 3.7 D (3.6-5.0) mmol/L Chloride 103.6 (98-107) mmol/L Carbon Dioxide 23 (22-30) mmol/L BUN 20 (9-20) mg/dL Creatinine 1.0 (0.8-1.3) mg/dL Glucose 114 H (75-100) mg/dL Calcium 8.8 (8.4-10.2) mg/dL AST 347 H (5-40) units/L ALT 92 H (7-56) units/L Alkaline Phosphatase 73 (35-129) units/L Total Protein 7.0 (6.3-8.2) g/dL Albumin 3.6 L (3.9-5) g/dL
[2020-12-24] MEDS ORDERED: FUROSEMIDE 20 MG/2 ML INJ IV ONE (18:30)
[2020-12-24] MEDS ORDERED: ACETAMINOPHEN 325 MG TAB PO PRN (21:20)
[2020-12-25] MEDS: carvediloL 3.125 MG TAB PO SCH ×3 (00:27→21:22)
[2020-12-25 06:32] LABS: Hematocrit 44.6 % (35.5-45.6); Hemoglobin 15.2 gm/dl (11.8-15.2)
[2020-12-25] MEDS ORDERED: FUROSEMIDE 20 MG/2 ML INJ IV STA (07:33)
--- NOTE | 2020-12-25 09:39 | Progress Note ---
Assessment and Plan Assessment and plan: Patient is a 60-year-old male with no significant past medical history who presented via EMS secondary to severe chest pain. Taken to phlebotomy lab assistant by Dr. Downs on 12/23/2020 with subsequent SHE placement in LAD. Hospital course to date 12/24/2020: Patient vitals show tachypneic respiration and patient now requiring 2 L nasal cannula. Interval development of pulmonary edema this morning as demonstrated on the chest x-ray. Discontinued IV maintenance fluids and ordered Lasix 40 mg IV x1. Negative for influenza and covid. Additional dose of Lasix this evening ordered. Will follow pulm and cardio recs 12/25/2020: Vitals this morning demonstrated 1 hypoxic reading 85%. Discussed with RN who retook vitals, saturation 92 to 94%. Patient will get echo today will follow up reading. Some improvement of pulmonary edema per exam today however we will diurese again today. Lasix 20 mg IV dose x1 ordered. Once he is stable, he will likely need referral for PSYCHOLOGY TECHNICIAN procedure per cardiology recommendation. Assessment and plan #[address] Downs on 12/23/2020. Cath impression per cardiology 1. Acute anterior ST elevation [place] 2. Status post primary PCI of the totally occluded LAD with drug-eluting stent 3. Residual coronary artery disease including significant mid and distal right coronary artery stenosis, PDA stenosis and PSYCHOLOGY TECHNICIAN of the PLB. Significant stenosis of a small caliber circumflex as well 4. Ischemic cardiomyopathy EF around 15 to 20% Troponin 0.224 Chest x-ray negative Admit to ICU for postop management Nitro drip Aggrastat for 18 hours Aspirin/Brilinta/BB/statin ICU consultation Cardiology following, recommends possible transfer for PSYCHOLOGY TECHNICIAN intervention on RCA. #2 Heart Failure with Reduced Ejection Fraction - EF : 20% per LV gram obtained in [employer] Echo pending - management as above - discontinued IVF. #3 Pulmonary edema - hypoxic and sob this AM - cxr demonstrates pulmonary edema, likely from fluid overload - lasix 40 mg iv x 2 - follow echo cardiogram. #4 Nicotine abuse Counseled on smoking cessation 10+ minutes History Interval history: No acute complaints on encounter. States that he is breathing comfortably. Hospitalist Physical - Physical exam Narrative exam: Physical Exam: VITAL SIGNS: Reviewed. GENERAL: The patient appears normally developed, Vital signs as documented. on 2 l NC HEAD: No signs of head trauma. EYES: Pupils are equal. Extraocular motions intact. EARS: Hearing grossly intact. MOUTH: Oropharynx is normal. NECK: No adenopathy, no JVD. CHEST: Fine crackles in bilateral lung contreras, interval improvement from yesterday's exam CARDIAC: Regular rate and rhythm. S1 and S2, without murmurs, gallops, or rubs. VASCULAR: No Edema. Peripheral pulses normal and equal in all extremities. ABDOMEN: Soft, non tender and non distended. No rebound or guarding, and no masses palpated. Bowel Sounds normal. MUSCULOSKELETAL: Good range of motion of all major joints. Extremities without clubbing, cyanosis or edema. NEUROLOGIC EXAM: Alert although orientation could not be verified as patient withdrawn no focal sensory or strength deficits. PSYCHIATRIC: Mood normal. SKIN: detail exam as documented in skin assessment - Constitutional Vitals: Temp Pulse Resp BP Pulse Ox 98.0 F 90 17 127/91 85 12/25/20 03:41 12/25/20 03:41 12/25/20 03:41 12/25/20 03:41 12/25/20 03:41 General appearance: Present: no acute distress HEART Score - HEART Score Troponin: Troponin T 5.440 ng/mL (0.00-0.029) H* D 12/24/20 05:59 Results - Labs CBC & Chem 7: 12/25/20 05:07 12/24/20 09:47 Labs: Laboratory Last Values WBC 11.9 K/mm3 (4.5-11.0) H 12/24/20 05:59 RBC 4.66 M/mm3 (3.65-5.03) 12/24/20 05:59 Hgb 15.2 gm/dl (11.8-15.2) 12/25/20 05:07 Hct 44.6 % (35.5-45.6) 12/25/20 05:07 MCV 98 fl (84-94) H 12/24/20 05:59 MCH 32 pg (28-32) 12/24/20 05:59 MCHC 33 % (32-34) 12/24/20 05:59 RDW 15.4 % (13.2-15.2) H 12/24/20 05:59 Plt Count 152 K/mm3 (140-440) 12/24/20 05:59 Lymph % (Auto) 6.7 % (13.4-35.0) L 12/24/20 05:59 [place] % (Auto) 8.1 % (0.0-7.3) H 12/24/20 05:59 Eos % (Auto) 0.1 % (0.0-4.3) 12/24/20 05:59 Baso % (Auto) 0.2 % (0.0-1.8) 12/24/20 05:59 Lymph # (Auto) 0.8 K/mm3 (1.2-5.4) L 12/24/20 05:59 [place] # (Auto) 1.0 K/mm3 (0.0-0.8) H 12/24/20 05:59 Eos # (Auto) 0.0 K/mm3 (0.0-0.4) 12/24/20 05:59 Baso # (Auto) 0.0 K/mm3 (0.0-0.1) 12/24/20 05:59 Seg Neutrophils % 84.9 % (40.0-70.0) H 12/24/20 05:59 Seg Neutrophils # 10.1 K/mm3 (1.8-7.7) H 12/24/20 05:59 PT 13.6 Sec. (12.2-14.9) 12/23/20 09:27 INR 0.98 (0.87-1.13) 12/23/20 09:27 APTT 22.6 Sec. (24.2-36.6) L 12/23/20 09:27 Sodium 138 mmol/L (137-145) 12/24/20 05:59 Potassium 3.7 mmol/L (3.6-5.0) D 12/24/20 09:47 Chloride 103.6 mmol/L (98-107) 12/24/20 05:59 Carbon Dioxide 23 mmol/L (22-30) 12/24/20 05:59 Anion Gap 17 mmol/L 12/24/20 05:59 BUN 20 mg/dL (9-20) 12/24/20 05:59 Creatinine 1.0 mg/dL (0.8-1.3) 12/24/20 05:59 Estimated GFR > 60 ml/min 12/24/20 05:59 BUN/Creatinine Ratio 20 % 12/24/20 05:59 Glucose 114 mg/dL (75-100) H 12/24/20 05:59 POC Glucose 99 mg/dL (70-105) 12/24/20 12:46 Calcium 8.8 mg/dL (8.4-10.2) 12/24/20 05:59 Total Bilirubin 1.40 mg/dL (0.1-1.2) H 12/24/20 05:59 AST 347 units/L (5-40) H 12/24/20 05:59 ALT 92 units/L (7-56) H 12/24/20 05:59 Alkaline Phosphatase 73 units/L (35-129) 12/24/20 05:59 Troponin T 5.440 ng/mL (0.00-0.029) H* D 12/24/20 05:59 Total Protein 7.0 g/dL (6.3-8.2) 12/24/20 05:59 Albumin 3.6 g/dL (3.9-5) L 12/24/20 05:59 Albumin/Globulin Ratio 1.1 % 12/24/20 05:59 Triglycerides 101 mg/dL (2-149) 12/23/20 09:27 Cholesterol 199 mg/dL (50-199) 12/23/20 09:27 LDL Cholesterol Direct 120 mg/dL (50-130) 12/23/20 09:27 HDL Cholesterol 64 mg/dL (40-59) H 12/23/20 09:27 Cholesterol/HDL Ratio 3.10 % 12/23/20 09:27 Coronavirus (PCR) Negative (Negative) 12/24/20 09:30 Influenza A (RT-PCR) Negative (Negative) 12/24/20 12:27 Influenza B (RT-PCR) Negative (Negative) 12/24/20 12:27 Blood Type O POSITIVE 12/23/20 09:27 Antibody Screen Negative 12/23/20 09:27 [place]/IV: Voiding Method Urinal Active Medications - Current Medications Current Medications: Generic Name Dose Route Start Last Admin Trade Name Freq PRN Reason Stop Dose Admin Acetaminophen 650 mg 12/24/20 21:20 12/24/20 21:37 Acetaminophen 325 Mg Tab PO 650 mg Q6H PRN Administration Pain, Mild (1-3) Hydrocodone Bitart/Acetaminophen 1 each 12/23/20 11:13 Hydrocodone/Acetaminophen 5-325 Mg Tab PO Q6H PRN Pain, Moderate (4-6) Aspirin 81 mg 12/24/20 10:00 12/24/20 09:15 Aspirin 81 Mg Tab Chew PO 81 mg QDAY KAVITHA Administration Atorvastatin Calcium 80 mg 12/23/20 22:00 12/24/20 21:31 Atorvastatin 40 Mg Tab PO 80 mg QHS KAVITHA Administration Carvedilol 3.125 mg 12/23/20 22:00 12/25/20 00:27 Carvedilol 3.125 Mg Tab PO Not Given BID KAVITHA Ondansetron HCl 4 mg 12/23/20 15:08 12/23/20 15:18 Ondansetron 4 Mg/2 Ml Inj IV 4 mg Q4H PRN Administration Nausea And Vomiting Ticagrelor 90 mg 12/23/20 22:00 12/24/20 21:31 Ticagrelor 90 Mg Tab PO 90 mg BID KAVITHA Administration
[2020-12-25] MEDS: TICAGRELOR 90 MG TAB PO SCH ×2 (09:44→21:23)
[2020-12-25] MEDS: ASPIRIN 81 MG TAB CHEW PO SCH (09:44)
--- NOTE | 2020-12-25 10:39 | Electrocardiograph Report ---
[facility] Test Date: 2020-12-23 Test Time: 13:23:32 Pat Name: BRISEIDA RODRIGUEZ Department: Room: A457 Gender: M Scheduling Agent: PATITO : 1960 Requested By: MALIK LONG Order Number: [id number] Reading MD: Bobby Amador Measurements Intervals [place] Rate: 61 P: 61 MO: 138 QRS: 12 QRSD: 108 T: 122 QT: 495 QTc: 499 Interpretive Statements Sinus rhythm Ventricular premature complex Probable anterolateral infarct, acute Compared to ECG 12/23/2020 09:07:27 Ventricular premature complex(es) now present Sinus bradycardia no longer present Myocardial infarct,recent, present Electronically Signed On 12-25-2020 10:39:11 EDT by Bobby Amador
--- NOTE | 2020-12-25 10:46 | Electrocardiograph Report ---
[facility] Test Date: 2020-12-24 Test Time: 07:55:06 Pat Name: BRISEIDA RODRIGUEZ Department: Room: A457 Gender: M Relations Coordinator: SHANTAL : 1960 Requested By: MALIK LONG Order Number: [id number] Reading MD: Bobby Amador Measurements Intervals [place] Rate: 85 P: 44 NE: 129 QRS: -83 QRSD: 100 T: 108 QT: 433 QTc: 516 Interpretive Statements Sinus rhythm Probable left atrial enlargement Left anterior fascicular block Lateral infarct, acute Anterior infarct, recent. Prolonged QT interval Compared to ECG 12/23/2020 13:23:32 Left anterior fascicular block now present Prolonged QT interval now present Ventricular premature complex(es) no longer present Electronically Signed On 12-25-2020 10:45:51 EDT by Bobby Amador
[2020-12-25 11:28] LABS: BUN/Creatinine Ratio 23; Blood Urea Nitrogen 23 mg/dL (9-20); Calcium 8.7 mg/dL (8.4-10.2); Hemolysis Index 5
--- NOTE | 2020-12-25 12:47 | Progress Note ---
Assessment and Plan - Patient Problems (1) STEMI (ST elevation myocardial infarction) Current Visit: Yes Status: Acute Qualifiers: Involved coronary artery: unspecified coronary artery Qualified Code(s): I21.3 - ST elevation (STEMI) myocardial infarction of unspecified site Plan to address problem: Patient presented with an acute anterior wall ST elevation myocardial infarction, treated with drug-eluting stents to the culprit lesion in the mid LAD bifurcation lesion with a medium sized diagonal branch. In addition, he has an eccentric, up to 30% distal left main stenosis visible in the cranial angulation. The circumflex artery is a very small, diffusely diseased system that is not suitable for revascularization. The right coronary artery is a larger caliber system that contains moderate to severe stenosis in the mid vessel, the distal vessel around the acute margin, and a long 80 to 90% stenosis of the distal vessel leading into the posterior descending branch. Beyond the posterior descending branch, the vessel is chronically, totally occluded with minimal collateralization of the terminal posterolateral branches. Left ventricle angiography revealed an underlying, severe cardiomyopathy with akinesis of the mid to distal anterior wall, apex and inferoapical aguayo. The left ventricular systolic ejection fraction cannot be optimally assessed due to poor contrast opacification, but likely less than 20%. An echocardiogram is pending. We will continue guideline directed medical therapy, review his LV function assessment on echocardiogram. If the ejection fraction is persistently less than 20 to 25%, we will consider LifeVest monitoring as a bridge to eventual ICD. His chest x-ray on presentation showed a clear lungs, but a repeat today shows moderate interstitial edema, mostly localized to the right lung field. We will commence optimal diuretic therapy, afterload therapy and other guideline measures for management of systolic heart failure exacerbation. (2) Systolic heart failure Current Visit: Yes Status: Acute Plan to address problem: Left ventricle angiography revealed an underlying, severe cardiomyopathy with akinesis of the mid to distal anterior wall, apex and inferoapical aguayo. The left ventricular systolic ejection fraction cannot be optimally assessed due to poor contrast opacification, but likely less than 20%. An echocardiogram is pending. We will continue guideline directed medical therapy, review his LV function assessment on echocardiogram. If the ejection fraction is persistently less than 20 to 25%, we will consider LifeVest monitoring as a bridge to eventual ICD. His chest x-ray on presentation showed a clear lungs, but a repeat today shows moderate interstitial edema, mostly localized to the right lung field. We will commence optimal diuretic therapy, afterload therapy and other guideline measures for management of systolic heart failure exacerbation. Subjective Date of service: 12/25/20 Interval history: Patient is comfortable, no new cardiac complaints. He is status post primary angioplasty of the mid LAD for an acute anterolateral wall STEMI. Objective Vital Signs Temp Pulse Pulse Pulse Resp BP BP 12/25/20 03:41 98.0 F 90 17 127/91 12/24/20 23:24 98.5 F 86 12 116/84 12/24/20 22:58 12/24/20 22:10 105/63 12/24/20 22:00 105/63 12/24/20 21:51 106/63 12/24/20 21:41 106/63 12/24/20 21:30 106/63 12/24/20 21:21 110/70 12/24/20 21:11 110/70 12/24/20 21:00 110/70 12/24/20 20:51 103/64 12/24/20 20:49 103/64 12/24/20 20:39 84 27 H 103/64 12/24/20 20:30 85 33 H 103/64 12/24/20 20:00 101 F H 75 92 H 21 110/77 12/24/20 19:30 84 27 H 116/78 12/24/20 19:00 87 27 H 110/75 12/24/20 18:30 84 21 111/70 12/24/20 18:00 85 26 H 117/75 12/24/20 17:30 88 25 H 107/73 12/24/20 17:00 87 24 117/80 12/24/20 16:30 93 H 33 H 109/80 12/24/20 16:00 85 92 H 34 H 112/79 12/24/20 15:30 86 31 H 115/80 12/24/20 15:00 113 H 97 H 22 102/84 122/72 12/24/20 14:30 85 22 124/85 12/24/20 14:00 87 21 122/88 12/24/20 13:30 85 21 133/88 12/24/20 13:05 82 139/93 12/24/20 13:00 88 31 H 139/93 Pulse Ox 12/25/20 03:41 85 12/24/20 23:24 100 12/24/20 22:58 96 12/24/20 22:10 95 12/24/20 22:00 97 12/24/20 21:51 95 12/24/20 21:41 94 12/24/20 21:30 96 12/24/20 21:21 95 12/24/20 21:11 95 12/24/20 21:00 93 12/24/20 20:51 94 12/24/20 20:49 93 12/24/20 20:39 96 12/24/20 20:30 97 12/24/20 20:00 99 12/24/20 19:30 95 12/24/20 19:00 96 12/24/20 18:30 91 12/24/20 18:00 95 12/24/20 17:30 97 12/24/20 17:00 96 12/24/20 16:30 94 12/24/20 16:00 95 12/24/20 15:30 91 12/24/20 15:00 90 12/24/20 14:30 97 12/24/20 14:00 96 12/24/20 13:30 93 12/24/20 13:05 12/24/20 13:00 92 - Physical Examination General: No Apparent Distress HEENT: Positive: Normocephaly Neck: Positive: neck supple Cardiac: Positive: Reg Rate and Rhythm Lungs: Positive: Decreased Breath Sounds Neuro: Positive: Grossly Intact Abdomen: Positive: Soft Extremities: Absent: edema - Labs and Meds CBC 12/25/20 Range/Units 05:07 Hgb 15.2 (11.8-15.2) gm/dl Hct 44.6 (35.5-45.6) % Comprehensive Metabolic Panel 12/25/20 Range/Units 10:12 Sodium 138 (137-145) mmol/L Potassium 3.2 L (3.6-5.0) mmol/L Chloride 101.2 (98-107) mmol/L Carbon Dioxide 25 (22-30) mmol/L BUN 23 H (9-20) mg/dL Creatinine 1.0 (0.8-1.3) mg/dL Glucose 178 H (75-100) mg/dL Calcium 8.7 (8.4-10.2) mg/dL
[2020-12-25] MEDS: FUROSEMIDE 40 MG/4 ML INJ IV SCH (18:55)
[2020-12-25] MEDS: SPIRONOLACTONE 25 MG TAB PO SCH (18:55)
[2020-12-25] MEDS: LISINOPRIL 5 MG TAB PO SCH (18:56)
[2020-12-26] MEDS: LISINOPRIL 5 MG TAB PO SCH (09:16)
[2020-12-26] MEDS: ASPIRIN 81 MG TAB CHEW PO SCH (09:16)
[2020-12-26] MEDS: SPIRONOLACTONE 25 MG TAB PO SCH (09:16)
[2020-12-26] MEDS: carvediloL 3.125 MG TAB PO SCH ×2 (09:17→21:12)
[2020-12-26] MEDS: TICAGRELOR 90 MG TAB PO SCH ×2 (09:17→21:12)
[2020-12-26] MEDS: FUROSEMIDE 40 MG/4 ML INJ IV SCH (09:17)
--- NOTE | 2020-12-26 09:23 | Progress Note ---
Assessment and Plan 60 y/o male with STEMI, systolic heart failure now with fever and generalized body aches. 12/26/20: Oxygen requirement can be explained by CHF and pulmonary edema. At this point, continue supplemental O2 to maintain sats >88% to reduce unnecessary stress on heart. Will need walk test prior to discharge. Will sign off, call if questions. 1. Stopped nitro drip and added daily imdur therapy 2. BB, statin already on board. NO nettie, not sure why, will defer to cards. May end up needing spironolactone if repeat echo several months from now shows persistently depressed EF 3. Agree with Isolation for now. COVID done but flu not ordered so ordered as well. If flu positive will place on tamiflu. If covid positive experimental therapy 4. Patient appears stable and pending COVID results could either go to tele if negative or COVID floor with remote tele if positive. 5. Will give an additional dose of lasix at around shift change to help with volume removal, but now that drip is off should improve. Guarded prognosis. Subjective Date of service: 12/26/20 Interval history: Patient seen yesterday but [facility] was down so not able to complete a note. Echo reveals EF of 10%. Down to 2 liters NC. Negative flu and COVID testing. Objective Vital Signs - 12hr 12/25/20 12/25/20 12/25/20 21:22 22:00 23:13 Temperature 99.2 F Pulse Rate 86 80 Pulse Rate [ Lying] Respiratory 14 Rate Blood Pressure 113/76 107/72 Blood Pressure [Lying] O2 Sat by Pulse 97 95 Oximetry 12/26/20 12/26/20 12/26/20 00:00 03:30 04:00 Temperature 98.5 F Pulse Rate 72 73 76 Pulse Rate [ 85 Lying] Respiratory 12 Rate Blood Pressure 111/71 Blood Pressure 100/66 [Lying] O2 Sat by Pulse 93 Oximetry 12/26/20 12/26/20 09:16 09:17 Temperature Pulse Rate 74 74 Pulse Rate [ Lying] Respiratory Rate Blood Pressure 115/73 115/73 Blood Pressure [Lying] O2 Sat by Pulse Oximetry Constitutional: no acute distress, alert Eyes: non-icteric ENT: oropharynx moist Neck: supple Ascultation: Bilateral: rales CBC and BMP: 12/25/20 05:07 12/25/20 10:12 ABG, PT/INR, D-dimer: PT/INR, D-dimer PT 13.6 Sec. (12.2-14.9) 12/23/20 09:27 INR 0.98 (0.87-1.13) 12/23/20 09:27 Abnormal lab findings: Abnormal Labs 12/23/20 12/23/20 12/23/20 09:27 09:27 09:27 WBC Hgb 15.4 H Hct 46.6 H MCV 97 H RDW 15.6 H Lymph % (Auto) [place] % (Auto) Lymph # (Auto) [place] # (Auto) Seg Neutrophils % 73.9 H Seg Neutrophils # APTT 22.6 L Potassium BUN Glucose 140 H Total Bilirubin AST ALT Troponin T 0.224 H* Albumin HDL Cholesterol 64 H 12/23/20 12/23/20 12/24/20 13:27 14:55 05:59 WBC 11.9 H Hgb Hct MCV 98 H RDW 15.4 H Lymph % (Auto) 6.7 L [place] % (Auto) 8.1 H Lymph # (Auto) 0.8 L [place] # (Auto) 1.0 H Seg Neutrophils % 84.9 H Seg Neutrophils # 10.1 H APTT Potassium BUN Glucose Total Bilirubin AST ALT Troponin T 6.560 H* D 11.130 H* D Albumin HDL Cholesterol 12/24/20 12/25/20 05:59 10:12 WBC Hgb Hct MCV RDW Lymph % (Auto) [place] % (Auto) Lymph # (Auto) [place] # (Auto) Seg Neutrophils % Seg Neutrophils # APTT Potassium 5.7 H D 3.2 L BUN 23 H Glucose 114 H 178 H Total Bilirubin 1.40 H AST 347 H ALT 92 H Troponin T 5.440 H* D Albumin 3.6 L HDL Cholesterol
--- NOTE | 2020-12-26 09:33 | Progress Note ---
Assessment and Plan Acute anterior wall VA treated with SHE to the mid LAD on Brilinta and aspirin Ischemic Cardiomyopathy LVEF 15-20% by echo with severe global hypokinesis Systolic heart failure exacerbation Tobacco abuse Recommendations: Advised smoking cessation. Continue GDMT for ischemic cardiomyopathy, systolic heart failure, and coronary artery disease. Lifevest placement before discharge. Subjective Date of service: 12/26/20 Interval history: Reports less shortness of breath. Denies chest pain. No distress noted. Objective Vital Signs Temp Pulse Pulse Resp BP BP Pulse Ox 12/26/20 09:17 74 115/73 12/26/20 09:16 74 115/73 12/26/20 07:32 98.1 F 74 20 115/73 95 12/26/20 04:00 76 12/26/20 03:30 98.5 F 73 12 111/71 93 12/26/20 00:00 72 85 100/66 12/25/20 23:13 99.2 F 80 14 107/72 95 12/25/20 22:00 97 12/25/20 21:22 86 113/76 12/25/20 20:00 91 H 12/25/20 19:33 100.2 F H 86 18 113/76 92 12/25/20 16:00 89 12/25/20 12:00 90 12/25/20 11:37 98.5 F 77 20 115/80 95 12/25/20 10:00 97 - Physical Examination General: No Apparent Distress HEENT: Positive: Normocephaly Neck: Positive: neck supple Neuro: Positive: Grossly Intact Abdomen: Positive: Soft Skin: Positive: Rash Extremities: Absent: edema - Labs and Meds Comprehensive Metabolic Panel 12/25/20 Range/Units 10:12 Sodium 138 (137-145) mmol/L Potassium 3.2 L (3.6-5.0) mmol/L Chloride 101.2 (98-107) mmol/L Carbon Dioxide 25 (22-30) mmol/L BUN 23 H (9-20) mg/dL Creatinine 1.0 (0.8-1.3) mg/dL Glucose 178 H (75-100) mg/dL Calcium 8.7 (8.4-10.2) mg/dL
--- NOTE | 2020-12-26 10:14 | Progress Note ---
Assessment and Plan Assessment and plan: Patient is a 60-year-old male with no significant past medical history who presented via EMS secondary to severe chest pain. Taken to cath lab technologist by Dr. Downs on 12/23/2020 with subsequent SHE placement in LAD. Hospital course to date 12/24/2020: Patient vitals show tachypneic respiration and patient now requiring 2 L nasal cannula. Interval development of pulmonary edema this morning as demonstrated on the chest x-ray. Discontinued IV maintenance fluids and ordered Lasix 40 mg IV x1. Negative for influenza and covid. Additional dose of Lasix this evening ordered. Will follow pulm and cardio recs 12/25/2020: Vitals this morning demonstrated 1 hypoxic reading 85%. Discussed with RN who retook vitals, saturation 92 to 94%. Patient will get echo today will follow up reading. Some improvement of pulmonary edema per exam today however we will diurese again today. Lasix 20 mg IV dose x1 ordered. Once he is stable, he will likely need referral for CLOSER ON procedure per cardiology recommendation. 12/26/2020: Continue aspirin, Brilinta, Lipitor, Coreg, lisinopril, spiron olactone and Lasix. Cardiology following. Cardiology recommends LifeVest bridge until AICD placement Assessment and plan #[address] Downs on 12/23/2020. Cath impression per cardiology 1. Acute anterior ST elevation [place] 2. Status post primary PCI of the totally occluded LAD with drug-eluting stent 3. Residual coronary artery disease including significant mid and distal right coronary artery stenosis, PDA stenosis and CLOSER ON of the PLB. Significant stenosis of a small caliber circumflex as well 4. Ischemic cardiomyopathy EF around 15 to 20% Troponin 0.224 Chest x-ray negative Admit to ICU for postop management Nitro drip Aggrastat for 18 hours Aspirin/Brilinta/BB/statin ICU consultation Cardiology following, recommends possible transfer for CLOSER ON intervention on RCA. #2 Heart Failure with Reduced Ejection Fraction - EF : 20% per LV gram obtained in Pinion [employer]isher Echo pending - management as above - discontinued IVF. #3 Pulmonary edema - hypoxic and sob this AM - cxr demonstrates pulmonary edema, likely from fluid overload - lasix 40 mg iv x 2 - follow echo cardiogram. #4 Nicotine abuse Counseled on smoking cessation 10+ minutes History Interval history: No new issues overnight Hospitalist Physical - Constitutional Vitals: Temp Pulse Resp BP Pulse Ox 98.1 F 74 20 115/73 95 12/26/20 07:32 12/26/20 09:17 12/26/20 07:32 12/26/20 09:17 12/26/20 07:32 General appearance: Present: no acute distress - EENT Eyes: Present: PERRL, EOM intact ENT: hearing intact, clear oral mucosa, dentition normal - Neck Neck: Present: supple, normal ROM - Respiratory Respiratory effort: normal Respiratory: bilateral: CTA - Cardiovascular Rhythm: regular Heart Sounds: Present: S1 & S2. Absent: gallop, rub - Extremities Extremities: no ischemia, No edema, Full ROM - Abdominal General gastrointestinal: soft, non-tender, non-distended, normal bowel sounds - Integumentary Integumentary: Present: clear, warm, dry - Neurologic Neurologic: CNII-XII intact, moves all extremities HEART Score - HEART Score Troponin: Troponin T 5.440 ng/mL (0.00-0.029) H* D 12/24/20 05:59 Results - Labs CBC & Chem 7: 12/25/20 05:07 12/25/20 10:12 Labs: Laboratory Last Values WBC 11.9 K/mm3 (4.5-11.0) H 12/24/20 05:59 RBC 4.66 M/mm3 (3.65-5.03) 12/24/20 05:59 Hgb 15.2 gm/dl (11.8-15.2) 12/25/20 05:07 Hct 44.6 % (35.5-45.6) 12/25/20 05:07 MCV 98 fl (84-94) H 12/24/20 05:59 MCH 32 pg (28-32) 12/24/20 05:59 MCHC 33 % (32-34) 12/24/20 05:59 RDW 15.4 % (13.2-15.2) H 12/24/20 05:59 Plt Count 152 K/mm3 (140-440) 12/24/20 05:59 Lymph % (Auto) 6.7 % (13.4-35.0) L 12/24/20 05:59 Bracken % (Auto) 8.1 % (0.0-7.3) H 12/24/20 05:59 Eos % (Auto) 0.1 % (0.0-4.3) 12/24/20 05:59 Baso % (Auto) 0.2 % (0.0-1.8) 12/24/20 05:59 Lymph # (Auto) 0.8 K/mm3 (1.2-5.4) L 12/24/20 05:59 Bracken # (Auto) 1.0 K/mm3 (0.0-0.8) H 12/24/20 05:59 Eos # (Auto) 0.0 K/mm3 (0.0-0.4) 12/24/20 05:59 Baso # (Auto) 0.0 K/mm3 (0.0-0.1) 12/24/20 05:59 Seg Neutrophils % 84.9 % (40.0-70.0) H 12/24/20 05:59 Seg Neutrophils # 10.1 K/mm3 (1.8-7.7) H 12/24/20 05:59 PT 13.6 Sec. (12.2-14.9) 12/23/20 09:27 INR 0.98 (0.87-1.13) 12/23/20 09:27 APTT 22.6 Sec. (24.2-36.6) L 12/23/20 09:27 Sodium 138 mmol/L (137-145) 12/25/20 10:12 Potassium 3.2 mmol/L (3.6-5.0) L 12/25/20 10:12 Chloride 101.2 mmol/L (98-107) 12/25/20 10:12 Carbon Dioxide 25 mmol/L (22-30) 12/25/20 10:12 Anion Gap 15 mmol/L 12/25/20 10:12 BUN 23 mg/dL (9-20) H 12/25/20 10:12 Creatinine 1.0 mg/dL (0.8-1.3) 12/25/20 10:12 Estimated GFR > 60 ml/min 12/25/20 10:12 BUN/Creatinine Ratio 23 % 12/25/20 10:12 Glucose 178 mg/dL (75-100) H 12/25/20 10:12 POC Glucose 99 mg/dL (70-105) 12/24/20 12:46 Calcium 8.7 mg/dL (8.4-10.2) 12/25/20 10:12 Total Bilirubin 1.40 mg/dL (0.1-1.2) H 12/24/20 05:59 AST 347 units/L (5-40) H 12/24/20 05:59 ALT 92 units/L (7-56) H 12/24/20 05:59 Alkaline Phosphatase 73 units/L (35-129) 12/24/20 05:59 Troponin T 5.440 ng/mL (0.00-0.029) H* D 12/24/20 05:59 Total Protein 7.0 g/dL (6.3-8.2) 12/24/20 05:59 Albumin 3.6 g/dL (3.9-5) L 12/24/20 05:59 Albumin/Globulin Ratio 1.1 % 12/24/20 05:59 Triglycerides 101 mg/dL (2-149) 12/23/20 09:27 Cholesterol 199 mg/dL (50-199) 12/23/20 09:27 LDL Cholesterol Direct 120 mg/dL (50-130) 12/23/20 09:27 HDL Cholesterol 64 mg/dL (40-59) H 12/23/20 09:27 Cholesterol/HDL Ratio 3.10 % 12/23/20 09:27 Coronavirus (PCR) Negative (Negative) 12/24/20 09:30 Influenza A (RT-PCR) Negative (Negative) 12/24/20 12:27 Influenza B (RT-PCR) Negative (Negative) 12/24/20 12:27 Blood Type O POSITIVE 12/23/20 09:27 Antibody Screen Negative 12/23/20 09:27 Lucero/IV: Voiding Method Toilet Active Medications - Current Medications Current Medications: Generic Name Dose Route Start Last Admin Trade Name Freq PRN Reason Stop Dose Admin Acetaminophen 650 mg 12/24/20 21:20 12/24/20 21:37 Acetaminophen 325 Mg Tab PO 650 mg Q6H PRN Administration Pain, Mild (1-3) Hydrocodone Bitart/Acetaminophen 1 each 12/23/20 11:13 Hydrocodone/Acetaminophen 5-325 Mg Tab PO Q6H PRN Pain, Moderate (4-6) Aspirin 81 mg 12/24/20 10:00 12/26/20 09:16 Aspirin 81 Mg Tab Chew PO 81 mg QDAY KAVITHA Administration Atorvastatin Calcium 80 mg 12/23/20 22:00 12/25/20 21:23 Atorvastatin 40 Mg Tab PO 80 mg QHS KAVITHA Administration Carvedilol 3.125 mg 12/23/20 22:00 12/26/20 09:17 Carvedilol 3.125 Mg Tab PO 3.125 mg BID KAVITHA Administration Furosemide 40 mg 12/25/20 13:00 12/26/20 09:17 Furosemide 40 Mg/4 Ml Inj IV 40 mg QDAY KAVITHA Administration Lisinopril 2.5 mg 12/25/20 13:00 12/26/20 09:16 Lisinopril 5 Mg Tab PO 2.5 mg QDAY KAVITHA Administration Ondansetron HCl 4 mg 12/23/20 15:08 12/23/20 15:18 Ondansetron 4 Mg/2 Ml Inj IV 4 mg Q4H PRN Administration Nausea And Vomiting Spironolactone 25 mg 12/25/20 13:00 12/26/20 09:16 Spironolactone 25 Mg Tab PO 25 mg QDAY KAVITHA Administration Ticagrelor 90 mg 12/23/20 22:00 12/26/20 09:17 Ticagrelor 90 Mg Tab PO 90 mg BID KAVITHA Administration
--- NOTE | 2020-12-27 09:04 | Discharge Summary ---
Providers - Providers Date of Admission: 12/23/20 12:24 Date of discharge: 12/27/20 Attending physician: LAMBERT MEJIA 12/23/20 Consult to Cardiac Rehabilitation [CONS] Routine Reason For Exam: post pci 12/23/20 09:13 Consult to Physician [CONS] Stat Comment: called answ. serv. / sean Consulting Provider: MALIK LONG Physician Instructions: Reason For Exam: stemi 12/25/20 11:20 Physical Therapy Evaluation and Treat [CONS] Routine Comment: Reason For Exam: Unsteady gait Primary care physician: NETWORK ANALYST Hospitalization Reason for admission: STEMI, Acute systolic HF exac Condition: Stable Hospital course: Patient is a 60-year-old male with no significant past medical history who presented via EMS secondary to severe chest pain. Patient apparently woke up with substernal chest pain associated with significant diaphoresis and shortness of breath. Patient was admitted with diagnosis of acute anterior wall ST elevation CT. Code STEMI was activated. Patient was taken to the Supervisor/Port Director and noted to have 100% occlusion of his LAD. Patient is status post PCI of the LAD. Cardiology also reported that the patient had a severe ischemic cardiomyopathy with hypo to akinesis of a large segment of the anterior wall, apex and inferior apical region with overall left ventricular ejection fraction less than 15 to 20%. The patient received aggressive medical therapy for systolic heart failure and coronary artery disease, risk factor modification including smoking cessation. Cardiology order a LifeVest monitor prior to discharge as a bridge to eventual ICD therapy. The patient returned to baseline with regards to respiratory status and heart failure exacerbation. LifeVest was obtained and thus patient will be discharged home. Patient is to follow-up with cardiology as an outpatient. Dedicated discharge time 38 minutes. Disposition: 01 HOME / SELF CARE / HOMELESS Final Discharge Diagnosis (Prints w/discharge instructions): Acute systolic heart failure, severe ischemic cardiomyopathy with a EF of 15 to 20%, STEMI ( acute anterior wall CT), tobacco abuse Core Measure Documentation - Palliative Care Palliative Care/ Comfort Measures: Not Applicable - Core Measures Any of the following diagnoses?: acute CT, heart failure - Acute CT Discharge Requirements Aspirin at discharge: Yes GIANNA/ARB for LVSD if EF <40%: Yes Beta king at discharge: Yes Statin for LDL = or >100 mg/dl on DC: Yes - Heart Failure Discharge Requirements GIANNA/ARB for LVSD if EF <40%: Yes Beta king at discharge: Yes Exam - Constitutional Vitals: Temp Pulse Resp BP Pulse Ox 98.4 F 73 16 105/78 94 12/27/20 03:31 12/27/20 03:31 12/27/20 03:31 12/27/20 03:31 12/27/20 03:31 General appearance: Present: no acute distress, well-nourished - EENT Eyes: Present: PERRL ENT: hearing intact, clear oral mucosa - Neck Neck: Present: supple, normal ROM - Respiratory Respiratory effort: normal Respiratory: bilateral: CTA - Cardiovascular Heart Sounds: Present: S1 & S2. Absent: rub, click - Extremities Extremities: pulses symmetrical, No edema Peripheral Pulses: within normal limits - Abdominal General gastrointestinal: Present: soft, non-tender, non-distended, normal bowel sounds Male genitourinary: Present: normal - Integumentary Integumentary: Present: clear, warm, dry - Musculoskeletal Musculoskeletal: gait normal, strength equal bilaterally - Psychiatric Psychiatric: appropriate mood/affect, intact judgment & insight - Neurologic Neurologic: CNII-XII intact, moves all extremities Plan Activity: advance as tolerated Weight Bearing Status: Weight Bear as Tolerated Additional Instructions: Follow-up with cardiology for AICD placement Follow up with: PRIMARY MD SEVERO [Primary Care Provider] - 7 Days LICHA CHUA MD [Staff Physician] - 7 Days Prescriptions: Spironolactone [Aldactone] 25 mg PO QDAY #30 tablet Aspirin [Aspirin BABY CHEW TAB] 81 mg PO QDAY #30 tab.chew Ticagrelor [Brilinta] 90 mg PO BID #60 tablet carvediloL [Coreg] 3.125 mg PO BID #60 tablet Furosemide [Lasix TAB] 40 mg PO QDAY #30 tablet AtorvaSTATin [Lipitor] 80 mg PO QHS #30 tablet lisinopriL [Zestril TAB] 2.5 mg PO QDAY #30 tablet
[2020-12-27 09:12] VITALS: BP 122/81
[2020-12-27] MEDS: carvediloL 3.125 MG TAB PO SCH (10:32)
[2020-12-27] MEDS: FUROSEMIDE 40 MG/4 ML INJ IV SCH (10:32)
[2020-12-27] MEDS: ASPIRIN 81 MG TAB CHEW PO SCH (10:32)
[2020-12-27] MEDS: TICAGRELOR 90 MG TAB PO SCH (10:32)
[2020-12-27] MEDS: LISINOPRIL 5 MG TAB PO SCH (10:32)
[2020-12-27] MEDS: SPIRONOLACTONE 25 MG TAB PO SCH (10:32)
--- NOTE | 2020-12-27 11:30 | Progress Note ---
Assessment and Plan Acute anterior wall [place] treated with SHE to the mid LAD on Brilinta and aspirin Ischemic Cardiomyopathy LVEF 15-20% by echo with severe global hypokinesis Lifevest has been placed Systolic heart failure exacerbation Tobacco abuse Recommendations: Advised smoking cessation. Continue GDMT for ischemic cardiomyopathy, systolic heart failure, and coronary artery disease. Lifevest has been placed as a bridge to eventual ICD therapy. Patient will follow up in our office within 5-7 days. Subjective Date of service: 12/27/20 Interval history: No cardiac complaints. Reports he is feeling better and wants to go home. Lifevest has been placed. Objective Vital Signs Temp Pulse Resp BP Pulse Ox 12/27/20 08:36 98.2 F 78 18 122/81 95 12/27/20 03:31 98.4 F 73 16 105/78 94 12/26/20 23:21 98.4 F 94 H 14 93/70 91 12/26/20 23:05 96 12/26/20 23:00 75 12/26/20 19:47 97.9 F 78 19 113/77 95 12/26/20 15:53 98.3 F 71 20 103/74 94 12/26/20 12:16 98.0 F 73 97/69 94 - Physical Examination General: No Apparent Distress HEENT: Positive: PERRL, Normocephaly Neck: Positive: neck supple Cardiac: Positive: Reg Rate and Rhythm Lungs: Positive: Decreased Breath Sounds Neuro: Positive: Grossly Intact Abdomen: Positive: Soft Extremities: Absent: edema
--- NOTE | 2021-01-03 12:49 | Cardiac Catherization Report ---
DATE OF PROCEDURE: 12/23/2020 CORONARY ANGIOGRAM AND PERCUTANEOUS INTERVENTION REPORT PROCEDURES PERFORMED: 1. Left and right coronary angiograms. 2. Left ventriculogram. 3. Successful percutaneous intervention of 100% occlusion of the proximal LAD. 4. Attempted PCI of PRINCIPAL CYBER ENGINEER of the PLV. INDICATIONS: Acute anterior wall ST elevation [place]. PROCEDURE DETAILS: 1. The patient was prepped and draped in a sterile fashion after informed consent. 2. The right groin was anesthetized using local Lidocaine infiltration. 3. The right radial artery was entered using the Seldinger technique, followed by the placement of a 6-Ethiopian sheath. 4. Selective left and right coronary angiography was performed using 6-Ethiopian Rich catheters. Angiograms were done in multiple projections. 5. Selective left ventricular angiography was done using a 6-Ethiopian pigtail catheter. Left ventricular angiography was performed in the right anterior oblique projection. 6. The catheters were withdrawn, the sheath removed, and hemostasis was achieved. 7. The patient was transferred to the post cardiac catheterization unit in stable condition. There were no complications, equipment malfunction, or technical difficulties. Moderate sedation was given under my direct surveillance. The patient tolerated the sedation and the procedure well. FINDINGS: HEMODYNAMICS: 1. AO 114/77, LV 114, LVEDP of 40. 2. Left ventriculogram done in 30 degrees [place] projection shows severely reduced LV systolic function, EF around 15-20%. ANGIOGRAM DETAILS: 1. Left main has 50% stenosis 2. LAD is 100% occluded proximally. 3. Circumflex is a small caliber vessel. It has a mid 90% stenosis just after the takeoff of the OM1. 4. The RCA is a large caliber tortuous vessel. There is a mid 70-80% stenosis leading into an aneurysmal segment followed by 80% distal stenosis. PDA has an ostial proximal 80% stenosis. PLV is 100% occluded. It appears to be a chronic total occlusion. PLAN: Proceed with PCI of the right coronary artery. PERCUTANEOUS INTERVENTION DETAILS Intravenous heparin was used to maintain therapeutic ACT. Intravenous Aggrastat was also initiated. An XB LAD guide was used to engage the left main coronary artery. A BMW wire was used to cross 100% occlusion of the LAD. Another BMW wire was advanced to the diagonal just at the proximal edge of the stenosis. After initial predilatation, a 3.5 X 24 mm Promus Elite drug-eluting stent was deployed to high atmospheres. The diagonal wire was withdrawn and then redirected through the stent struts. The LAD stent was postdilated serially with a 4.0 and then a 4.5 mm noncompliant balloon with good results. A 2.5 x 20 mm compliant balloon was advanced into the diagonal and angioplasty was done. Angiogram showed excellent result with good ANAYA 3 flow. The diagonal was also preserved. At this time, we decided to proceed with PCI of the right coronary artery. A JR4 guide catheter was used to engage the right coronary artery. However, the wire would not cross the 100% occlusion of the PLV, as it appeared to be a chronic total occlusion. The patient was chest pain free. We decided to stop the procedure. The patient was given 180 mg of Brilinta. Culprit lesion proximal LAD. Preprocedure stenosis 100% with ANAYA 0 flow. Postprocedure stenosis is 0% with ANAYA 3 flow. Stent deployed was 3.5 x 24 Promus [employer] drug-eluting stent. IMPRESSION: 1. Status post successful balloon intervention of the LAD in the setting of acute anterior wall ST elevation myocardial infarction. 2. Ischemic cardiomyopathy with ejection fraction of 15-20%. PLAN: 1. Aspirin for life. 2. Brilinta for 1 year, preferably more. 3. Aggrastat for 18 hours. 4. Routine adjuvant pharmacotherapy post PCI. 5. Aggressive medical therapy for ischemic cardiomyopathy. 6. Tertiary care center referral for IVUS of the left main and PRINCIPAL CYBER ENGINEER of the RCA TID: [id number] RECEIPT: [id number] JUSTEN/YOMAIRA/VIANNEY DOWNING
== END 2020-12-27 13:30 | disposition home or self-care (01) | DRG 246 ==
LOC: ED 08:39 → CC1 12:24 → 4A 12-24 22:49
PROVIDERS: ADMIT Internal Medicine; ATTEND Hospitalist
PROC: 4A023N7 Measurement of Cardiac Sampling and Pressure, Left Heart, Percutaneous Approach (ICD-10-PCS; principal; 2020-12-23)
PROC: 027034Z Dilation of Coronary Artery, One Artery with Drug-eluting Intraluminal Device, Percutaneous Approach (ICD-10-PCS; 2020-12-23)
PROC: 02C03ZZ Extirpation of Matter from Coronary Artery, One Artery, Percutaneous Approach (ICD-10-PCS; 2020-12-23)
PROC: 02703ZZ Dilation of Coronary Artery, One Artery, Percutaneous Approach (ICD-10-PCS; 2020-12-23)
PROC: B2111ZZ Fluoroscopy of Multiple Coronary Arteries using Low Osmolar Contrast (ICD-10-PCS; 2020-12-23)
PROC: B2151ZZ Fluoroscopy of Left Heart using Low Osmolar Contrast (ICD-10-PCS; 2020-12-23)
DX: I21.09 ST elevation (STEMI) myocardial infarction involving other coronary artery of anterior wall (principal); I50.23 Acute on chronic systolic (congestive) heart failure; J81.1 Chronic pulmonary edema; I25.5 Ischemic cardiomyopathy; I25.10 Atherosclerotic heart disease of native coronary artery without angina pectoris; Z20.822 Contact with and (suspected) exposure to COVID-19; F17.200 Nicotine dependence, unspecified, uncomplicated
CPT/HCPCS: 36415; 71045; 80048; 80053; 80061; 82962; 84132; 84484; 85014; 85018; 85025; 85610; 85730; 86850; 86900; 86901; 92921; 92941; 93005; 93306; 93458; G0378; 87502; C1725; C1769; C1874; C1887; C1894; C9606; J0282; J1644; J1940; J2250; J2405; J3010; J3246; J7030; Q9967; U0003

== ENCOUNTER 2021-06-05 14:46 | Inpatient (IN) | payer SELFPAY ==
[2021-06-05 16:45] LABS: Basophils # (Auto) 0.1 K/mm3 (0.0-0.1); Basophils % (Auto) 1.1 % (0.0-1.8); Eosinophils # (Auto) 0.2 K/mm3 (0.0-0.4); Eosinophils % (Auto) 2.6 % (0.0-4.3); Hematocrit 25.4 % (35.5-45.6); Lymphocytes # (Auto) 1.9 K/mm3 (1.2-5.4); Lymphocytes % (Auto) 23.6 % (13.4-35.0); Mean Corpuscular HGB Conc 32 % (32-34); Mean Corpuscular Volume 93 fl (84-94); Monocytes # (Auto) 0.6 K/mm3 (0.0-0.8); Monocytes % (Auto) 7.2 % (0.0-7.3); Platelet Count 253 K/mm3 (140-440); Red Blood Count 2.74 M/mm3 (3.65-5.03); Red Cell Distribution Width 15.5 % (13.2-15.2)
[2021-06-05] MEDS ORDERED: cefTRIAXone/NS 1 GM/50 ML 1 GM/50 ML BAG IV ONE (16:58)
--- NOTE | 2021-06-05 16:58 | XRay Report ---
CHEST 2 VIEWS INDICATION / CLINICAL INFORMATION: Chest Pain. COMPARISON: One view of the chest from 12/24/2020. FINDINGS: SUPPORT DEVICES: A right arm PICC terminates over the cavoatrial junction. HEART / MEDIASTINUM: Normal size of the cardiac silhouette with mild aortic atherosclerosis. There is central vascular congestion. LUNGS / PLEURA: Airspace opacities are seen along the mid/lower lungs. The lung apices are clear. No significant pleural effusion. No pneumothorax. ADDITIONAL FINDINGS: No significant additional findings. IMPRESSION: 1. Suspected bilateral pneumonia. Please correlate with the clinical findings. 2. Additional findings as above. Signer Name: Yaakov Plaza MD Signed: 06/05/2021 4:54 PM Workstation Name: [id number]
[2021-06-05 17:02] LABS: INR 1.12 (0.87-1.13)
[2021-06-05 17:26] LABS: Mucus,Urine FEW /HPF
[2021-06-05 17:29] LABS: Bilirubin,Urine Negative (Negative); Blood,Urine 1+ (Negative); Color,Urine Yellow (Yellow); Urobilinogen,Urine < 2.0 mg/dL (<2.0)
[2021-06-05 17:46] LABS: Alanine Aminotransferase 57 units/L (7-56); BUN/Creatinine Ratio 14; Blood Urea Nitrogen 14 mg/dL (9-20); Calcium 9.2 mg/dL (8.4-10.2); Hemolysis Index 0
--- NOTE | 2021-06-05 18:03 | Emergency Department Report ---
ED Chest Pain HPI - General Chief Complaint: Chest Pain Stated Complaint: HARD TO BREATH Time Seen by Provider: 06/05/21 16:14 Source: patient Mode of arrival: Ambulatory Limitations: No Limitations - History of Present Illness Initial Comments: States has had CP x 2 weeks after going to [place] for a defective pacemakes MD Complaint: chest pain -: Gradual, week(s) Onset: during rest Pain Radiation: none Severity scale (0 -10): 4 Consistency: constant Improves With: nothing Worsens With: nothing - Related Data On Oral Contraceptives: No Previous Rx's Medication Instructions Recorded Last Taken Type Aspirin [Aspirin BABY CHEW TAB] 81 mg PO QDAY #30 tab.chew 12/27/20 Unknown Rx AtorvaSTATin [Lipitor] 80 mg PO QHS #30 tablet 12/27/20 Unknown Rx Furosemide [Lasix TAB] 40 mg PO QDAY #30 tablet 12/27/20 Unknown Rx Spironolactone [Aldactone] 25 mg PO QDAY #30 tablet 12/27/20 Unknown Rx Ticagrelor [Brilinta] 90 mg PO BID #60 tablet 12/27/20 Unknown Rx carvediloL [Coreg] 3.125 mg PO BID #60 tablet 12/27/20 Unknown Rx lisinopriL [Zestril TAB] 2.5 mg PO QDAY #30 tablet 12/27/20 Unknown Rx Allergies Allergy/AdvReac Type Severity Reaction Status Date / Time No Known Allergies Allergy Unverified 12/23/20 09:22 Heart Score - HEART Score History: Moderately suspicious EKG: Non-specific Age: 45-65 Risk factors: > 3 risk factors or hx of atherosclerotic disease Troponin: < normal limit HEART Score: 5 - EKG Read Time Time EKG Completed: 18:02 EKG Read Time: 18:02 ED Review of Systems ROS: Stated complaint: HARD TO BREATH Other details as noted in HPI Constitutional: denies: chills, fever Eyes: denies: eye pain, eye discharge, vision change ENT: denies: ear pain, throat pain Respiratory: denies: cough, shortness of breath, wheezing Cardiovascular: denies: chest pain, palpitations Endocrine: no symptoms reported Gastrointestinal: denies: abdominal pain, nausea, diarrhea Genitourinary: denies: urgency, dysuria Musculoskeletal: denies: back pain, joint swelling, arthralgia Skin: denies: rash, lesions Neurological: denies: headache, weakness, paresthesias Psychiatric: denies: anxiety, depression Hematological/Lymphatic: denies: easy bleeding, easy bruising ED Past Medical Hx - Past Medical History Hx Heart Attack/AMI: Yes (12/23/20 STEMI-post cath) Hx Congestive Heart Failure: No Hx Diabetes: No Hx Asthma: No Hx COPD: No Additional medical history: Left knee pain - Surgical History Hx Coronary Stent: Yes (12/23/20) Additional Surgical History: left knee surgery - Social History Smoking Status: Current Every Day Smoker - Medications Home Medications: Home Medications Medication Instructions Recorded Confirmed Last Taken Type Aspirin [Aspirin BABY CHEW TAB] 81 mg PO QDAY #30 tab.chew 12/27/20 Unknown Rx AtorvaSTATin [Lipitor] 80 mg PO QHS #30 tablet 12/27/20 Unknown Rx Furosemide [Lasix TAB] 40 mg PO QDAY #30 tablet 12/27/20 Unknown Rx Spironolactone [Aldactone] 25 mg PO QDAY #30 tablet 12/27/20 Unknown Rx Ticagrelor [Brilinta] 90 mg PO BID #60 tablet 12/27/20 Unknown Rx carvediloL [Coreg] 3.125 mg PO BID #60 tablet 12/27/20 Unknown Rx lisinopriL [Zestril TAB] 2.5 mg PO QDAY #30 tablet 12/27/20 Unknown Rx ED Physical Exam - General Limitations: No Limitations General appearance: alert, other (WEAK ) - Head Head exam: Present: atraumatic, normocephalic - Eye Eye exam: Present: normal appearance - ENT ENT exam: Present: mucous membranes moist - Neck Neck exam: Present: normal inspection - Respiratory Respiratory exam: Present: normal lung sounds bilaterally, rales. Absent: respiratory distress - Cardiovascular Cardiovascular Exam: Present: regular rate, normal rhythm. Absent: systolic murmur, diastolic murmur, rubs, gallop - GI/Abdominal GI/Abdominal exam: Present: soft, normal bowel sounds - Rectal Rectal exam: Present: deferred - Extremities Exam Extremities exam: Present: normal inspection - Back Exam Back exam: Present: normal inspection - Neurological Exam Neurological exam: Present: alert, oriented X3 - Psychiatric Psychiatric exam: Present: normal affect, normal mood - Skin Skin exam: Present: warm, dry, intact, normal color. Absent: rash ED Course Vital Signs 06/05/21 15:07 Temperature 98.0 F Pulse Rate 102 H Respiratory 20 Rate Blood Pressure 156/98 O2 Sat by Pulse 97 Oximetry - Reevaluation(s) Reevaluation #1: 06/05/21 18:01 WORK UP NEG , h.h DROPPED , X RAY SHWOED PNEUMONIA , ABX AND CULTURES , TROP NEGATVE ED Medical Decision Making - Lab Data Result diagrams: 06/05/21 16:37 06/05/21 16:37 Critical care attestation.: If time is entered above; I have spent that time in minutes in the direct care of this critically ill patient, excluding procedure time. ED Disposition Clinical Impression: Chest pain, Pneumonia, CHF (congestive heart failure) Disposition: ADMITTED INPATIENT Is pt being admited?: Yes Does the pt Need Aspirin: No Condition: Stable Instructions: Nonspecific Chest Pain, Adult, Bacterial Pneumonia (ED)
[2021-06-05] MEDS ORDERED: FUROSEMIDE 40 MG/4 ML INJ IV ONE (18:21)
[2021-06-05 18:32] LABS: Amphetamine Screen,Urine Negative; Benzodiazepines Screen,Urine Negative; Cannabinoid Screen,Urine Negative; Cocaine Screen,Urine Negative; Methadone Screen,Urine Negative; Opiate Screen,Urine Negative
--- NOTE | 2021-06-05 21:06 | History and Physical Report ---
History of Present Illness Date of examination: 06/05/21 Date of admission: 06/05/2021 Chief complaint: Progressive increasing shortness of breath for 1 week History of present illness: 61-year-old male with history of CHF, hyperlipidemia, hypertension and coronary artery disease comes in for increasing shortness of breath for 1 week. Shortness of breath on minimal exertion and patient has class IV NYHA symptoms. Patient is also orthopnea. No paroxysmal nocturnal dyspnea. No chest pain. Patient had a pacemaker removed recently 2 weeks ago and since then patient's shortness of breath is increased. Patient states that his EPS specialist is Dr. Amaro. Heart Score - HEART Score History: Moderately suspicious EKG: Non-specific Age: 45-65 Risk factors: > 3 risk factors or hx of atherosclerotic disease Troponin: < normal limit HEART Score: 5 - EKG Read Time Time EKG Completed: 18:02 EKG Read Time: 18:02 - Past Medical History --Heart Attack/AMI: Yes (12/23/20 STEMI-post cath) Additional medical history: Left knee pain Permanent pacemaker-removal recently - Surgical History Hx Coronary Stent: Yes (12/23/20) Additional Surgical History: left knee surgery Permanent pacemaker which was removed recently 2 weeks ago - Social History Smoking Status: Current Every Day Smoker Family history Htn - Medications Home Medications: Home Medications Medication Instructions Recorded Confirmed Last Taken Type Aspirin [Aspirin BABY CHEW TAB] 81 mg PO QDAY #30 tab.chew 12/27/20 Unknown Rx AtorvaSTATin [Lipitor] 80 mg PO QHS #30 tablet 12/27/20 Unknown Rx Furosemide [Lasix TAB] 40 mg PO QDAY #30 tablet 12/27/20 Unknown Rx Spironolactone [Aldactone] 25 mg PO QDAY #30 tablet 12/27/20 Unknown Rx Ticagrelor [Brilinta] 90 mg PO BID #60 tablet 12/27/20 Unknown Rx carvediloL [Coreg] 3.125 mg PO BID #60 tablet 12/27/20 Unknown Rx lisinopriL [Zestril TAB] 2.5 mg PO QDAY #30 tablet 12/27/20 Unknown Rx Review of Systems ROS: Stated complaint: HARD TO BREATH Other details as noted in HPI Constitutional: denies: chills, fever Eyes: denies: eye pain, eye discharge, vision change ENT: denies: ear pain, throat pain Respiratory: denies: cough, shortness of breath, wheezing Cardiovascular: denies: chest pain, palpitations Endocrine: no symptoms reported Gastrointestinal: denies: abdominal pain, nausea, diarrhea Genitourinary: denies: urgency, dysuria Musculoskeletal: denies: back pain, joint swelling, arthralgia Skin: denies: rash, lesions Neurological: denies: headache, weakness, paresthesias Psychiatric: denies: anxiety, depression Hematological/Lymphatic: denies: easy bleeding, easy bruising Medications and Allergies Allergies Allergy/AdvReac Type Severity Reaction Status Date / Time No Known Allergies Allergy Unverified 12/23/20 09:22 Home Medications Medication Instructions Recorded Confirmed Last Taken Type Aspirin [Aspirin BABY CHEW TAB] 81 mg PO QDAY #30 tab.chew 12/27/20 Unknown Rx AtorvaSTATin [Lipitor] 80 mg PO QHS #30 tablet 12/27/20 Unknown Rx Furosemide [Lasix TAB] 40 mg PO QDAY #30 tablet 12/27/20 Unknown Rx Spironolactone [Aldactone] 25 mg PO QDAY #30 tablet 12/27/20 Unknown Rx Ticagrelor [Brilinta] 90 mg PO BID #60 tablet 12/27/20 Unknown Rx carvediloL [Coreg] 3.125 mg PO BID #60 tablet 12/27/20 Unknown Rx lisinopriL [Zestril TAB] 2.5 mg PO QDAY #30 tablet 12/27/20 Unknown Rx Exam - Constitutional Vitals: Temp Pulse Resp BP Pulse Ox 98.0 F 102 H 20 154/105 97 06/05/21 15:07 06/05/21 15:07 06/05/21 15:07 06/05/21 19:31 06/05/21 19:31 General appearance: Present: no acute distress, well-nourished - EENT Eyes: Present: PERRL ENT: hearing intact, clear oral mucosa - Neck Neck: Present: supple, normal ROM - Respiratory Respiratory effort: normal Respiratory: bilateral: CTA, rales (Bibasilar) - Cardiovascular Heart rate: 78 Rhythm: regular Heart Sounds: Present: S1 & S2. Absent: rub, click - Extremities Extremities: pulses symmetrical, No edema Peripheral Pulses: within normal limits - Abdominal General gastrointestinal: Present: soft, non-tender, non-distended, normal bowel sounds Male genitourinary: Present: normal - Integumentary Integumentary: Present: clear, warm, dry - Musculoskeletal Musculoskeletal: gait normal, strength equal bilaterally - Psychiatric Psychiatric: appropriate mood/affect, intact judgment & insight - Neurologic Neurologic: CNII-XII intact, moves all extremities HEART Score - HEART Score EKG: Non-specific Age: 45-65 Risk factors: > 3 risk factors or hx of atherosclerotic disease Troponin: Troponin T < 0.010 ng/mL (0.00-0.029) 06/05/21 16:37 Troponin: < normal limit Results - Labs CBC & Chem 7: 06/06/21 05:18 06/06/21 05:18 Labs: Laboratory Last Values WBC 8.2 K/mm3 (4.5-11.0) 06/05/21 16:37 RBC 2.74 M/mm3 (3.65-5.03) L 06/05/21 16:37 Hgb 8.0 gm/dl (11.8-15.2) L 06/05/21 16:37 Hct 25.4 % (35.5-45.6) L 06/05/21 16:37 MCV 93 fl (84-94) 06/05/21 16:37 MCH 29 pg (28-32) 06/05/21 16:37 MCHC 32 % (32-34) 06/05/21 16:37 RDW 15.5 % (13.2-15.2) H 06/05/21 16:37 Plt Count 253 K/mm3 (140-440) 06/05/21 16:37 Lymph % (Auto) 23.6 % (13.4-35.0) 06/05/21 16:37 [place] % (Auto) 7.2 % (0.0-7.3) 06/05/21 16:37 Eos % (Auto) 2.6 % (0.0-4.3) 06/05/21 16:37 Baso % (Auto) 1.1 % (0.0-1.8) 06/05/21 16:37 Lymph # (Auto) 1.9 K/mm3 (1.2-5.4) 06/05/21 16:37 [place] # (Auto) 0.6 K/mm3 (0.0-0.8) 06/05/21 16:37 Eos # (Auto) 0.2 K/mm3 (0.0-0.4) 06/05/21 16:37 Baso # (Auto) 0.1 K/mm3 (0.0-0.1) 06/05/21 16:37 Seg Neutrophils % 65.5 % (40.0-70.0) 06/05/21 16:37 Seg Neutrophils # 5.4 K/mm3 (1.8-7.7) 06/05/21 16:37 PT 15.7 Sec. (12.2-14.9) H 06/05/21 16:37 INR 1.12 (0.87-1.13) 06/05/21 16:37 Sodium 141 mmol/L (137-145) 06/05/21 16:37 Potassium 4.1 mmol/L (3.6-5.0) 06/05/21 16:37 Chloride 106.1 mmol/L (98-107) 06/05/21 16:37 Carbon Dioxide 19 mmol/L (22-30) L 06/05/21 16:37 Anion Gap 20 mmol/L 06/05/21 16:37 BUN 14 mg/dL (9-20) 06/05/21 16:37 Creatinine 1.0 mg/dL (0.8-1.3) 06/05/21 16:37 Estimated GFR > 60 ml/min 06/05/21 16:37 BUN/Creatinine Ratio 14 % 06/05/21 16:37 Glucose 97 mg/dL (75-100) 06/05/21 16:37 Lactic Acid 1.90 mmol/L (0.7-2.0) 06/05/21 17:02 Calcium 9.2 mg/dL (8.4-10.2) 06/05/21 16:37 Total Bilirubin 0.50 mg/dL (0.1-1.2) 06/05/21 16:37 AST 33 units/L (5-40) 06/05/21 16:37 ALT 57 units/L (7-56) H 06/05/21 16:37 Alkaline Phosphatase 229 units/L (35-129) H 06/05/21 16:37 Troponin T < 0.010 ng/mL (0.00-0.029) 06/05/21 16:37 NT-Pro-B Natriuret Pep 15035 pg/mL (0-900) H 06/05/21 16:37 Total Protein 7.9 g/dL (6.3-8.2) 06/05/21 16:37 Albumin 3.0 g/dL (3.9-5) L 06/05/21 16:37 Albumin/Globulin Ratio 0.6 % 06/05/21 16:37 Lipase 16 units/L (13-60) 06/05/21 16:37 Urine Color Yellow (Yellow) 06/05/21 Unknown Urine Turbidity Clear (Clear) 06/05/21 Unknown Urine pH 5.0 (5.0-7.0) 06/05/21 Unknown Ur Specific [place] 1.025 (1.003-1.030) 06/05/21 Unknown Urine Protein 100 mg/dl mg/dL (Negative) 06/05/21 Unknown Urine Glucose (UA) Negative mg/dL (Negative) 06/05/21 Unknown Urine Ketones Negative mg/dL (Negative) 06/05/21 Unknown Urine Blood 1+ (Negative) 06/05/21 Unknown Urine Nitrite Negative (Negative) 06/05/21 Unknown Ur Reducing Substances Not Reportable 06/05/21 Unknown Urine Bilirubin Negative (Negative) 06/05/21 Unknown Urine Ictotest Not Reportable 06/05/21 Unknown Urine Urobilinogen < 2.0 mg/dL (<2.0) 06/05/21 Unknown Ur Leukocyte Esterase Negative (Negative) 06/05/21 Unknown Urine WBC (Auto) 2.0 /HPF (0.0-6.0) 06/05/21 Unknown Urine RBC (Auto) 2.0 /HPF (0.0-6.0) 06/05/21 Unknown U Epithel Cells (Auto) 3.0 /HPF (0-13.0) 06/05/21 Unknown Urine Mucus Few /HPF 06/05/21 Unknown Urine Opiates Screen Negative 06/05/21 Unknown Urine Methadone Screen Negative 06/05/21 Unknown Ur Barbiturates Screen Negative 06/05/21 Unknown Ur Phencyclidine Scrn Negative 06/05/21 Unknown Ur Amphetamines Screen Negative 06/05/21 Unknown U Benzodiazepines Scrn Negative 06/05/21 Unknown Urine Cocaine Screen Negative 06/05/21 Unknown U Marijuana (THC) Screen Negative 06/05/21 Unknown Drugs of Abuse Note Disclamer 06/05/21 Unknown Short CBC 06/05/21 Range/Units 16:37 WBC 8.2 (4.5-11.0) K/mm3 Hgb 8.0 L (11.8-15.2) gm/dl Hct 25.4 L (35.5-45.6) % Plt Count 253 (140-440) K/mm3 BMP 06/05/21 16:37 Sodium 141 Potassium 4.1 Chloride 106.1 Carbon Dioxide 19 L BUN 14 Creatinine 1.0 Glucose 97 Calcium 9.2 Cardiac Enzymes 06/05/21 Range/Units 16:37 Troponin T < 0.010 (0.00-0.029) ng/mL Liver Function 06/05/21 Range/Units 16:37 Total Bilirubin 0.50 (0.1-1.2) mg/dL AST 33 (5-40) units/L ALT 57 H (7-56) units/L Alkaline Phosphatase 229 H (35-129) units/L Albumin 3.0 L (3.9-5) g/dL Urine 06/05/21 Range/Units Unknown Urine Color Yellow (Yellow) Urine pH 5.0 (5.0-7.0) Ur Specific [place] 1.025 (1.003-1.030) Urine Protein 100 mg/dl (Negative) mg/dL Urine Glucose (UA) Negative (Negative) mg/dL Short CBC 06/05/21 06/06/21 Range/Units 16:37 05:18 WBC 8.2 6.6 (4.5-11.0) K/mm3 Hgb 8.0 L 7.6 L (11.8-15.2) gm/dl Hct 25.4 L 22.9 L (35.5-45.6) % Plt Count 253 264 (140-440) K/mm3 BMP 06/05/21 06/06/21 16:37 05:18 Sodium 141 140 Potassium 4.1 4.1 Chloride 106.1 103.1 Carbon Dioxide 19 L 22 BUN 14 13 Creatinine 1.0 1.0 Glucose 97 94 Calcium 9.2 9.0 Cardiac Enzymes 06/05/21 Range/Units 16:37 Troponin T < 0.010 (0.00-0.029) ng/mL Liver Function 06/05/21 06/06/21 Range/Units 16:37 05:18 Total Bilirubin 0.50 0.50 (0.1-1.2) mg/dL AST 33 36 (5-40) units/L ALT 57 H 54 (7-56) units/L Alkaline Phosphatase 229 H 207 H (35-129) units/L Albumin 3.0 L 2.8 L (3.9-5) g/dL Urine 06/05/21 Range/Units Unknown Urine Color Yellow (Yellow) Urine pH 5.0 (5.0-7.0) Ur Specific [place] 1.025 (1.003-1.030) Urine Protein 100 mg/dl (Negative) mg/dL Urine Glucose (UA) Negative (Negative) mg/dL - Imaging and Cardiology EKG: report reviewed (Sinus tachycardia no acute ST-T wave changes) Chest x-ray: report reviewed Imaging and Cardiology: Chest x-ray Suspected bilateral pneumonia Additional findings as above Assessment and Plan Advance Directives: Yes (Full code) VTE prophylaxis?: Chemical Plan of care discussed with patient/family: Yes - Patient Problems (1) Acute exacerbation of CHF (congestive heart failure) Current Visit: Yes Status: Acute Qualifiers: Heart failure type: combined systolic and diastolic Qualified Code(s): I50.43 - Acute on chronic combined systolic (congestive) and diastolic (congestive) heart failure Plan to address problem: Patient initiated on IV Lasix 40 mg every 12 Also Daily weights and intake and output Echocardiogram for ejection fraction Cardiology consult (2) Bilateral pneumonia Current Visit: Yes Status: Acute Plan to address problem: Unlikely We will start on IV antibiotics empirically for 24 to 48 hours Check prolactin (3) Tobacco abuse Current Visit: No Status: Chronic Plan to address problem: Patient counseled about nicotine dependence Was given options of Chantix and Wellbutrin And counseling (4) Hypertension Current Visit: Yes Status: Chronic Qualifiers: Hypertension type: primary hypertension Qualified Code(s): I10 - Essential (primary) hypertension Plan to address problem: Continue antihypertensives (5) Coronary artery disease Current Visit: Yes Status: Acute Qualifiers: Coronary Disease-Associated Artery/Lesion type: [place] artery [place] vs. transplanted heart: [place] heart Plan to address problem: Continue Brilinta (6) DVT prophylaxis Current Visit: Yes Status: Acute Plan to address problem: On heparin and GI prophylaxis (7) Advance care planning Current Visit: Yes Status: Acute Plan to address problem: Disease education conducted, care plan discussed, diagnosis discussed, prognosis discussed. Patient is full code. Patient acknowledges understanding and agreement with care plan. +30 minutes. (8) Anemia Current Visit: Yes Status: Chronic Qualifiers: Anemia type: unspecified type Qualified Code(s): D64.9 - Anemia, unspe cified Plan to address problem: Anemia work-up
[2021-06-05] MEDS ORDERED: ACETAMINOPHEN 325 MG TAB PO PRN ×2 (21:20→21:34)
[2021-06-05] MEDS ORDERED: ONDANSETRON 4 MG/2 ML INJ IV PRN ×2 (21:20→21:34)
[2021-06-05] MEDS ORDERED: MORPHINE 2 MG/1 ML INJ IV PRN (21:20)
[2021-06-05] MEDS ORDERED: oxyCODONE /ACETAMINOPHEN 5-325MG TAB PO PRN (21:20)
[2021-06-05] MEDS ORDERED: POTASSIUM CHLORIDE ER 20 MEQ TAB PO SCH (22:00)
[2021-06-05] MEDS: FAMOTIDINE 20 MG TAB PO SCH (22:22)
[2021-06-05] MEDS: HEPARIN 5,000 UNIT/1 ML VIAL SUB-Q SCH (22:22)
[2021-06-06 05:45] LABS: Basophils # (Auto) 0.1 K/mm3 (0.0-0.1); Basophils % (Auto) 1.9 % (0.0-1.8); Eosinophils # (Auto) 0.2 K/mm3 (0.0-0.4); Eosinophils % (Auto) 3.2 % (0.0-4.3); Hematocrit 22.9 % (35.5-45.6); Hemoglobin 7.6 gm/dl (11.8-15.2); Lymphocytes # (Auto) 1.8 K/mm3 (1.2-5.4); Lymphocytes % (Auto) 27.2 % (13.4-35.0); Mean Corpuscular HGB Conc 33 % (32-34); Mean Corpuscular Volume 91 fl (84-94); Monocytes # (Auto) 0.6 K/mm3 (0.0-0.8); Monocytes % (Auto) 9.2 % (0.0-7.3); Platelet Count 264 K/mm3 (140-440); Red Blood Count 2.52 M/mm3 (3.65-5.03); Red Cell Distribution Width 15.4 % (13.2-15.2)
[2021-06-06 06:15] LABS: Alanine Aminotransferase 54 units/L (7-56); Albumin 2.8 g/dL (3.9-5); BUN/Creatinine Ratio 13; Blood Urea Nitrogen 13 mg/dL (9-20); Hemolysis Index 0
--- NOTE | 2021-06-06 08:08 | Event Note ---
Date: 06/06/21 Patient states [facility] is his cardiology provider Disease and pacemaker was removed by Dr. Amaro as per the patient Consult changed: From [facility] to [facility]
--- NOTE | 2021-06-06 08:56 | Consultation ---
History of Present Illness Consult date: 06/06/21 Consult reason: chest pain, congestive heart failure History of present illness: The patient is a 61-year-old man with history of coronary artery disease and ischemic cardiomyopathy. 6 months ago, he suffered an anterior ST elevation myocardial infarction in this hospital, followed by successful primary angioplasty and stenting of the LAD. He was also noted to have a chronic total occlusion of the right coronary artery was recommended for medical therapy. There was a severe ischemic cardiomyopathy with left ventricle ejection fraction reported at the time of 15 to 20%. According to the patient, a month ago, he had what was likely an ICD implant done at [facility]. A week ago, his ICD was explanted at [facility] for a device infection. He was then discharged on 7-day outpatient intravenous antibiotic regimen which he states has completed. He still has a central IV catheter in his right arm. He presents to the hospital at this time with complaints of shortness of breath which he says has persisted since his hospital discharge a week ago. There was no chest pain, he denies fever, he denies palpitations, he denies lower extremity edema. He was evaluated in the emergency room and referred for admission. EKG is sinus rhythm, left axis deviation, nonspecific ST and T wave changes, no acute ischemia or infarction. Chest x-ray shows a moderate cardiomegaly, with bilateral airspace disease, nonspecific for pulmonary edema. Past History Past Medical History: CAD, heart failure, hypertension Past Surgical History: PTCA Medications and Allergies Allergies Allergy/AdvReac Type Severity Reaction Status Date / Time No Known Allergies Allergy Unverified 12/23/20 09:22 Home Medications Medication Instructions Recorded Confirmed Last Taken Type Aspirin [Aspirin BABY CHEW TAB] 81 mg PO QDAY #30 tab.chew 12/27/20 Unknown Rx AtorvaSTATin [Lipitor] 80 mg PO QHS #30 tablet 12/27/20 Unknown Rx Furosemide [Lasix TAB] 40 mg PO QDAY #30 tablet 12/27/20 Unknown Rx Spironolactone [Aldactone] 25 mg PO QDAY #30 tablet 12/27/20 Unknown Rx Ticagrelor [Brilinta] 90 mg PO BID #60 tablet 12/27/20 Unknown Rx carvediloL [Coreg] 3.125 mg PO BID #60 tablet 12/27/20 Unknown Rx lisinopriL [Zestril TAB] 2.5 mg PO QDAY #30 tablet 12/27/20 Unknown Rx Active Meds: Active Medications Acetaminophen (Acetaminophen 325 Mg Tab) 650 mg PO Q4H PRN PRN Reason: Pain MILD(1-3)/Fever >100.5/GARDUNO Famotidine (Famotidine 20 Mg Tab) 20 mg PO BID [facility] Last Admin: 06/05/21 22:22 Dose: 20 mg Furosemide (Furosemide 40 Mg/4 Ml Inj) 40 mg IV 0600,1800 [facility] Heparin Sodium (Porcine) (Heparin 5,000 Unit/1 Ml Vial) 5,000 unit SUB-Q Q12HR [facility] Last Admin: 06/05/21 22:22 Dose: 5,000 unit Morphine Sulfate (Morphine 2 Mg/1 Ml Inj) 2 mg IV Q4H PRN PRN Reason: Pain, Moderate (4-6) Ondansetron HCl (Ondansetron 4 Mg/2 Ml Inj) 4 mg IV Q8H PRN PRN Reason: Nausea And Vomiting Oxycodone/Acetaminophen (Oxycodone /Acetaminophen 5-325mg Tab) 1 tab PO Q6H PRN PRN Reason: Pain, Moderate (4-6) Potassium Chloride (Potassium Chloride Er 20 Meq Tab) 20 meq PO Q12H [facility] Last Admin: 06/05/21 22:22 Dose: 20 meq Sodium Chloride (Sodium Chloride 0.9% 10 Ml Flush Syringe) 10 ml IV BID [facility] Last Admin: 06/05/21 22:22 Dose: 10 ml Sodium Chloride (Sodium Chloride 0.9% 10 Ml Flush Syringe) 10 ml IV PRN PRN PRN Reason: LINE FLUSH Review of Systems Cardiovascular: shortness of breath, no chest pain, no orthopnea, no palpitations, no rapid/irregular heart beat, no edema, no syncope, no lightheadedness Physical Examination Vital Signs Temp Pulse Resp BP Pulse Ox 98.0 F 102 H 20 156/98 97 06/05/21 15:07 06/05/21 15:07 06/05/21 15:07 06/05/21 15:07 06/05/21 15:07 General appearance: no acute distress HEENT: Positive: PERRL Neck: Positive: neck supple Cardiac: Positive: Reg Rate and Rhythm Lungs: Positive: Decreased Breath Sounds Neuro: Positive: Grossly Intact Abdomen: Positive: Soft Male genitourinary: Positive: deferred Skin: Positive: Clear Extremities: Absent: edema Results 06/06/21 05:18 06/06/21 05:18 Cardiac Enzymes 06/05/21 06/06/21 Range/Units 16:37 05:18 AST 33 36 (5-40) units/L Coagulation 06/05/21 Range/Units 16:37 PT 15.7 H (12.2-14.9) Sec. INR 1.12 (0.87-1.13) CBC 06/05/21 06/06/21 Range/Units 16:37 05:18 WBC 8.2 6.6 (4.5-11.0) K/mm3 RBC 2.74 L 2.52 L (3.65-5.03) M/mm3 Hgb 8.0 L 7.6 L (11.8-15.2) gm/dl Hct 25.4 L 22.9 L (35.5-45.6) % Plt Count 253 264 (140-440) K/mm3 Lymph # (Auto) 1.9 1.8 (1.2-5.4) K/mm3 [place] # (Auto) 0.6 0.6 (0.0-0.8) K/mm3 Eos # (Auto) 0.2 0.2 (0.0-0.4) K/mm3 Baso # (Auto) 0.1 0.1 (0.0-0.1) K/mm3 Comprehensive Metabolic Panel 06/05/21 06/06/21 Range/Units 16:37 05:18 Sodium 141 140 (137-145) mmol/L Potassium 4.1 4.1 (3.6-5.0) mmol/L Chloride 106.1 103.1 (98-107) mmol/L Carbon Dioxide 19 L 22 (22-30) mmol/L BUN 14 13 (9-20) mg/dL Creatinine 1.0 1.0 (0.8-1.3) mg/dL Glucose 97 94 (75-100) mg/dL Calcium 9.2 9.0 (8.4-10.2) mg/dL AST 33 36 (5-40) units/L ALT 57 H 54 (7-56) units/L Alkaline Phosphatase 229 H 207 H (35-129) units/L Total Protein 7.9 7.3 (6.3-8.2) g/dL Albumin 3.0 L 2.8 L (3.9-5) g/dL EKG interpretations - Telemetry EKG Rhythm: Sinus Rhythm Assessment and Plan - Patient Problems (1) Dilated cardiomyopathy Current Visit: Yes Status: Acute Plan to address problem: Patient has severe ischemic cardiomyopathy, coronary artery disease, on medical therapy. We will resume guideline directed medical therapy including his dual oral antiplatelet therapy baby aspirin and Brilinta. Most recent coronary intervention was 6 months ago. Historical Left ventricular ejection fraction was 15 to 20%. (2) ICD (implantable cardioverter-defibrillator) infection Current Visit: Yes Status: Acute Plan to address problem: Patient had ICD explanted a week ago for reported lead infection. He has completed 7 days of outpatient IV antibiotic therapy. I would recommend infectious disease consultation, additional blood cultures at this time to assess for continued bacteremia following recent device infection.
--- NOTE | 2021-06-06 09:23 | Electrocardiograph Report ---
[facility] Test Date: 2021-06-05 Test Time: 14:58:58 Pat Name: BRISEIDA RODRIGUEZ Department: Room: A473 1 Gender: M Registered Health Nurse: CONNIE : 1960 Requested By: TONJA CHEW Order Number: [id number] Reading MD: Quincy Navarro Measurements Intervals [place] Rate: 102 P: 64 [place]: 144 QRS: -34 QRSD: 97 T: 86 QT: 385 QTc: 500 Interpretive Statements Sinus tachycardia Atrial premature complex Probable left atrial enlargement nonspecific st-t Nonspecific T abnormalities, lateral leads Compared to ECG 12/24/2020 07:55:06 Atrial premature complex(es) now present Left-axis deviation now present Electronically Signed On 06-06-2021 9:23:08 EST by Quincy Navarro
[2021-06-06] MEDS: HEPARIN 5,000 UNIT/1 ML VIAL SUB-Q SCH ×2 (11:08→21:57)
[2021-06-06] MEDS: FAMOTIDINE 20 MG TAB PO SCH ×2 (11:10→21:57)
[2021-06-06] MEDS: SPIRONOLACTONE 25 MG TAB PO SCH (11:11)
[2021-06-06] MEDS: carvediloL 6.25 MG TAB PO SCH ×2 (11:11→21:57)
[2021-06-06] MEDS: LOSARTAN 50 MG TAB PO SCH (11:12)
[2021-06-06] MEDS: TICAGRELOR 90 MG TAB PO SCH ×2 (11:12→21:58)
[2021-06-06] MEDS: ASPIRIN EC 81 MG TAB PO SCH (11:16)
--- NOTE | 2021-06-06 16:13 | Consultation ---
History of Present Illness - Reason for Consult Consult date: 06/06/21 - History of Present Illness 61-year-old man past medical history CAD, ischemic cardiomyopathy presented to hospital complaining of shortness of breath. He reports having an ICD placed 03/29/2021, and consistently presented to [facility] on 04/25/2021 with hypotension and syncope. It is to be septic at that time of MRSA bacteremia. He also had drainage from his AICD placement prior to admission. He was found to have vegetation on ICD lead on HARINDER on 131, which was extracted on 05/03/2021. His blood cultures remain persistently positive until 05/08/2021. A repeat HARINDER showed tricuspid valve vegetation. He was planned to have antibiotics with daptomycin and ceftaroline until 06/21/2021, 6 weeks post negative blood cultures. Much of the history is obtained from the chart as he is a poor historian. He was recently discharged from [facility] on 05/25/2021, however he notes only completing 7 days of antibiotics, and has been without it for a few days now. He now shortness of breath which has been persistent since discharge. Afebrile since admission, tachycardic. White count 6.6. Normal renal function. No cultures. Currently on no antibiotics. Imaging personally reviewed: Chest x-ray: Suspected bilateral pneumonia Review of Systems: Bold if positive, otherwise negative General: fevers, chills, rigors HEENT: visual disturbance, diplopia, eye pain Respiratory: cough, sputum, hemoptysis, shortness of breath Cardiovascular: chest pain, syncope Gastrointestinal: nausea, vomiting, diarrhea, abdominal pain Genitourinary: dysuria, hematuria, flank pain Musculoskeletal: neck pain, back pain, joint pain, edema Neurologic: headaches, seizures Hematologic: easy bruising or bleeding Endocrine: night sweats, acute weight loss Skin: rash, jaundice, redness Psychiatric: suicidal, homicidal ideation Past History Past Medical History: CAD, heart failure, hypertension Past Surgical History: PTCA Social history: denies: smoking Family history: hypertension Medications and Allergies Allergies Allergy/AdvReac Type Severity Reaction Status Date / Time No Known Allergies Allergy Unverified 12/23/20 09:22 Home Medications Medication Instructions Recorded Confirmed Last Taken Type Aspirin [Aspirin BABY CHEW TAB] 81 mg PO QDAY #30 tab.chew 12/27/20 Unknown Rx AtorvaSTATin [Lipitor] 80 mg PO QHS #30 tablet 12/27/20 Unknown Rx Furosemide [Lasix TAB] 40 mg PO QDAY #30 tablet 12/27/20 Unknown Rx Spironolactone [Aldactone] 25 mg PO QDAY #30 tablet 12/27/20 Unknown Rx Ticagrelor [Brilinta] 90 mg PO BID #60 tablet 12/27/20 Unknown Rx carvediloL [Coreg] 3.125 mg PO BID #60 tablet 12/27/20 Unknown Rx lisinopriL [Zestril TAB] 2.5 mg PO QDAY #30 tablet 12/27/20 Unknown Rx Active Meds: Active Medications Acetaminophen (Acetaminophen 325 Mg Tab) 650 mg PO Q4H PRN PRN Reason: Pain MILD(1-3)/Fever >100.5/GARDUNO Aspirin (Aspirin Ec 81 Mg Tab) 81 mg PO QDAY [facility] Last Admin: 06/06/21 11:16 Dose: 81 mg Atorvastatin Calcium (Atorvastatin 40 Mg Tab) 40 mg PO QHS [facility] Carvedilol (Carvedilol 6.25 Mg Tab) 6.25 mg PO BID [facility] Last Admin: 06/06/21 11:11 Dose: 6.25 mg Famotidine (Famotidine 20 Mg Tab) 20 mg PO BID [facility] Last Admin: 06/06/21 11:10 Dose: 20 mg Furosemide (Furosemide 40 Mg/4 Ml Inj) 40 mg IV 0600,1800 [facility] Heparin Sodium (Porcine) (Heparin 5,000 Unit/1 Ml Vial) 5,000 unit SUB-Q Q12HR [facility] Last Admin: 06/06/21 11:08 Dose: 5,000 unit Losartan Potassium (Losartan 50 Mg Tab) 100 mg PO QDAY [facility] Last Admin: 06/06/21 11:12 Dose: 100 mg Morphine Sulfate (Morphine 2 Mg/1 Ml Inj) 2 mg IV Q4H PRN PRN Reason: Pain, Moderate (4-6) Ondansetron HCl (Ondansetron 4 Mg/2 Ml Inj) 4 mg IV Q8H PRN PRN Reason: Nausea And Vomiting Oxycodone/Acetaminophen (Oxycodone /Acetaminophen 5-325mg Tab) 1 tab PO Q6H PRN PRN Reason: Pain, Moderate (4-6) Sodium Chloride (Sodium Chloride 0.9% 10 Ml Flush Syringe) 10 ml IV BID [facility] Last Admin: 06/06/21 11:13 Dose: 10 ml Sodium Chloride (Sodium Chloride 0.9% 10 Ml Flush Syringe) 10 ml IV PRN PRN PRN Reason: LINE FLUSH Spironolactone (Spironolactone 25 Mg Tab) 25 mg PO QDAY [facility] Last Admin: 06/06/21 11:11 Dose: 25 mg Ticagrelor (Ticagrelor 90 Mg Tab) 90 mg PO BID [facility] Last Admin: 06/06/21 11:12 Dose: 90 mg Physical Examination - Physical Exam Narrative exam: Physical Exam: Constitutional: Alert, cooperative. No acute distress Head, Ears, Nose: Normocephalic, atraumatic. External ears, nose normal Eyes: Conjunctivae/corneas clear. No icterus. No ptosis. Neck: Supple, no meningeal signs Oral: dentition fair, no thrush Cardiovascular: S1, S2 normal. Respiratory: Good air entry, clear to auscultation bilaterally GI: Soft, non-tender; bowel sounds normal. No peritoneal signs. Musculoskeletal: No pedal edema, no cyanosis. Skin: No rash or abscess Hem/Lymphatic: No palpable cervical or supraclavicular nodes. No lymphangitis Psych: Mood ok. Affect normal Neurological: Awake, alert, oriented. No gross abnormality - Constitutional Vitals: Vital Signs Temp Pulse Resp BP Pulse Ox 97.6 F 107 H 18 118/86 93 06/06/21 11:23 06/06/21 11:23 06/06/21 11:23 06/06/21 11:23 06/06/21 11:23 Temperature -Last 24 Hours Temperature 97.6 F Temperature 98.6 F Temperature 98.7 F Temperature 98.9 F Results - Labs CBC & Chem 7: 06/06/21 05:18 06/06/21 05:18 Labs: Abnormal lab results 06/05/21 06/05/21 06/05/21 Range/Units 16:37 16:37 16:37 RBC 2.74 L (3.65-5.03) M/mm3 Hgb 8.0 L (11.8-15.2) gm/dl Hct 25.4 L (35.5-45.6) % RDW 15.5 H (13.2-15.2) % [place] % (Auto) (0.0-7.3) % Baso % (Auto) (0.0-1.8) % PT 15.7 H (12.2-14.9) Sec. Carbon Dioxide 19 L (22-30) mmol/L ALT 57 H (7-56) units/L Alkaline Phosphatase 229 H (35-129) units/L NT-Pro-B Natriuret Pep (0-900) pg/mL Albumin 3.0 L (3.9-5) g/dL 06/05/21 06/06/21 06/06/21 Range/Units 16:37 05:18 05:18 RBC 2.52 L (3.65-5.03) M/mm3 Hgb 7.6 L (11.8-15.2) gm/dl Hct 22.9 L (35.5-45.6) % RDW 15.4 H (13.2-15.2) % [place] % (Auto) 9.2 H (0.0-7.3) % Baso % (Auto) 1.9 H (0.0-1.8) % PT (12.2-14.9) Sec. Carbon Dioxide (22-30) mmol/L ALT (7-56) units/L Alkaline Phosphatase 207 H (35-129) units/L NT-Pro-B Natriuret Pep 60034 H (0-900) pg/mL Albumin 2.8 L (3.9-5) g/dL Assessment and Plan Cultures: None A/P: 61-year-old man past medical history CAD, ischemic cardiomyopathy now with: #Tricuspid valve endocarditis with MRSA: Also history of infected AICD, status post removal. Per notes from [facility], patient was supposed to be on 6 weeks post clearance of cultures of daptomycin ceftaroline. Patient reports that he was only given 7 days as outpatient, as such stopped last Friday. As such he has been without antibiotics for 5 days now. Expected stop date of antibiotics was to be 06/21/2021. #Dilated cardiomyopathy: Management per cardiology. Recs: -Check new blood cultures -Reinitiate daptomycin 6 mg 6 mg/kg, ceftaroline every 8 hours due to endocarditis. -Case management consulted to expected end date of 06/21/2021 -He should follow-up with Dr. Bui/Kristi as an outpatient. Thank you for the consult, we will continue to follow. Marek Cleveland MD [facility] ([facility]) O: [phone] F: [phone]
[2021-06-06] MEDS: FUROSEMIDE 40 MG/4 ML INJ IV SCH (18:09)
[2021-06-07] MEDS: FUROSEMIDE 40 MG/4 ML INJ IV SCH ×3 (04:33→17:37)
--- NOTE | 2021-06-07 05:55 | Progress Note ---
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 He has completed 7 days of outpatient IV antibiotic therapy. Infectious disease consultation, additional blood cultures at this time to assess for continued bacteremia following recent device infection. As per ID recommendations '#Tricuspid valve endocarditis with MRSA: Also history of infected AICD, status post removal. Per notes from [facility], patient was supposed to be on 6 weeks post clearance of cultures of daptomycin ceftaroline. Patient reports that he was only given 7 days as outpatient, as such stopped last Friday. As such he has been without antibiotics for 5 days now. Expected stop date of antibiotics was to be 06/21/2021. #Dilated cardiomyopathy: Management per cardiology. Recs: -Check new blood cultures -Reinitiate daptomycin 6 mg 6 mg/kg, ceftaroline every 8 hours due to endocarditis. -Case management consulted to expected end date of 06/21/2021 -He should follow-up with Dr. Bui/Kristi as an outpatient. " (2) Endocarditis Current Visit: Yes Status: Acute Qualifiers: Chronicity: acute Plan to address problem: Tricuspid valve endocarditis Recommendations of antibiotics till 06/21/2021 noted We will discuss with case management regarding IV antibiotic arrangement (3) Acute exacerbation of CHF (congestive heart failure) Current Visit: Yes Status: Acute Qualifiers: Heart failure type: combined systolic and diastolic Qualified Code(s): I50.43 - Acute on chronic combined systolic (congestive) and diastolic (congestive) heart failure Plan to address problem: Patient initiated on IV Lasix 40 mg every 12 Also Daily weights and intake and output Echocardiogram for ejection fraction Cardiology consult appreciated Plan to address problem: Patient has severe ischemic cardiomyopathy, coronary artery disease, on medical therapy. We will resume guideline directed medical therapy including his dual oral antiplatelet therapy baby aspirin and Brilinta. Most recent coronary intervention was 6 months ago. Historical Left ventricular ejection fraction was 15 to 20%. (4) Bilateral pneumonia Current Visit: Yes Status: Acute Plan to address problem: Unlikely We will start on IV antibiotics empirically for 24 to 48 hours Check prolactin (5) Tobacco abuse Current Visit: No Status: Chronic Plan to address problem: Patient counseled about nicotine dependence Was given options of Chantix and Wellbutrin And counseling (6) Hypertension Current Visit: Yes Status: Chronic Qualifiers: Hypertension type: primary hypertension Qualified Code(s): I10 - Essential (primary) hypertension Plan to address problem: Continue antihypertensives (7) Coronary artery disease Current Visit: Yes Status: Acute Qualifiers: Coronary Disease-Associated Artery/Lesion type: [place] artery [place] vs. transplanted heart: [place] heart Plan to address problem: Continue Brilinta (8) DVT prophylaxis Current Visit: Yes Status: Acute Plan to address problem: On heparin and GI prophylaxis (9) Advance care planning Current Visit: Yes Status: Acute Plan to address problem: Disease education conducted, care plan discussed, diagnosis discussed, prognosis discussed. Patient is full code. Patient acknowledges understanding and agreement with care plan. +30 minutes. (10) Anemia Current Visit: Yes Status: Chronic Qualifiers: Anemia type: unspecified type Qualified Code(s): D64.9 - Anemia, unspecified Plan to address problem: Anemia work-up (11) Endocarditis Current Visit: Yes Status: Acute Subjective Date of service: 06/06/21 Principal diagnosis: 06/06/21 Interval history: 61-year-old male with history of CHF, hyperlipidemia, hypertension and coronary artery disease comes in for increasing shortness of breath for 1 week. Short ness of breath on minimal exertion and patient has class IV NYHA symptoms. Patient is also orthopnea. No paroxysmal nocturnal dyspnea. No chest pain. Patient had a pacemaker removed recently 2 weeks ago and since then patient's shortness of breath is increased. Patient states that his EPS specialist is Dr. Amaro. June 06, 2021 Cardiology consult and ID consult appreciated Patient to continue IV antibiotics till 06/21/2021 Shortness of breath is better Patient counseled about noncompliance Objective - Constitutional Vitals: Vital Signs - 12hr 06/06/21 06/06/21 06/06/21 19:33 20:02 20:06 Temperature 97.6 F Pulse Rate 91 H 91 H Respiratory 16 Rate Blood Pressure 115/81 O2 Sat by Pulse 95 97 Oximetry 06/06/21 06/07/21 22:45 03:47 Temperature 98.2 F 98.3 F Pulse Rate 71 88 Respiratory 16 16 Rate Blood Pressure 110/77 106/73 O2 Sat by Pulse 98 96 Oximetry General appearance: Present: no acute distress, well-nourished - EENT Eyes: PERRL, EOM intact ENT: hearing intact, clear oral mucosa Ears: bilateral: normal - Neck Neck: supple, normal ROM - Respiratory Respiratory effort: normal Respiratory: bilateral: CTA - Breasts Breasts: normal - Cardiovascular Heart rate: 78 Rhythm: regular Heart Sounds: Present: S1 & S2. Absent: gallop, rub Extremities: pulses intact, No edema, normal color, Full ROM - Gastrointestinal General gastrointestinal: Present: soft, non-tender, non-distended, normal bowel sounds - Genitourinary Male genitourinary: normal - Integumentary Integumentary: clear, warm, dry - Musculoskeletal Musculoskeletal: 1, strength equal bilaterally - Neurologic Neurologic: moves all extremities - Psychiatric Psychiatric: memory intact, appropriate mood/affect, intact judgment & insight - Labs CBC & Chem 7: 06/06/21 05:18 06/06/21 05:18 Labs: Abnormal lab results 06/06/21 Range/Units 05:18 Alkaline Phosphatase 207 H (35-129) units/L Albumin 2.8 L (3.9-5) g/dL HEART Score - HEART Score EKG: Non-specific Age: 45-65 Risk factors: > 3 risk factors or hx of atherosclerotic disease Troponin: Troponin T < 0.010 ng/mL (0.00-0.029) 06/05/21 16:37 Troponin: < normal limit
[2021-06-07] MEDS: LOSARTAN 50 MG TAB PO SCH (10:46)
[2021-06-07] MEDS: TICAGRELOR 90 MG TAB PO SCH ×2 (10:46→21:24)
[2021-06-07] MEDS: SODIUM CHLORIDE 0.9% IV SCH ×2 (10:47→17:36)
[2021-06-07] MEDS: CEFTAROLINE FOSAMIL IV SCH ×2 (10:47→17:36)
[2021-06-07] MEDS: carvediloL 6.25 MG TAB PO SCH ×2 (10:47→21:25)
[2021-06-07] MEDS: ASPIRIN EC 81 MG TAB PO SCH (10:47)
[2021-06-07] MEDS: HEPARIN 5,000 UNIT/1 ML VIAL SUB-Q SCH ×2 (10:47→21:25)
[2021-06-07] MEDS: FAMOTIDINE 20 MG TAB PO SCH ×2 (10:47→21:24)
[2021-06-07] MEDS: SPIRONOLACTONE 25 MG TAB PO SCH (10:48)
--- NOTE | 2021-06-07 11:08 | Progress Note ---
Assessment and Plan - Patient Problems (1) CHF (congestive heart failure) Current Visit: Yes Status: Acute (2) Coronary artery disease Current Visit: Yes Status: Acute Qualifiers: Coronary Disease-Associated Artery/Lesion type: [place] artery [place] vs. transplanted heart: [place] heart (3) Dilated cardiomyopathy Current Visit: Yes Status: Acute Subjective Date of service: 06/07/21 Principal diagnosis: 06/06/21 Interval history: FEELS ALITTLE BETTER Objective Vital Signs Temp Pulse Resp BP Pulse Ox 06/07/21 07:41 98.5 F 18 113/82 06/07/21 03:47 98.3 F 88 16 106/73 96 06/06/21 22:45 98.2 F 71 16 110/77 98 06/06/21 20:06 97 06/06/21 20:02 91 H 06/06/21 19:33 97.6 F 91 H 16 115/81 95 06/06/21 16:22 97.3 F L 93 H 18 113/83 97 06/06/21 11:23 97.6 F 107 H 18 118/86 93 06/06/21 11:12 80 06/06/21 11:11 80 - Physical Examination General: No Apparent Distress HEENT: Positive: PERRL Neck: Positive: neck supple, JVD/HJR Cardiac: Positive: Regular Rhythm Lungs: Positive: Decreased Breath Sounds Neuro: Positive: Grossly Intact Abdomen: Positive: Soft Skin: Positive: Clear Extremities: Present: Other (NO EDEMA). Absent: edema - Imaging and Cardiology EKG: report reviewed (Sinus tachycardia no acute ST-T wave changes)
--- NOTE | 2021-06-07 12:29 | Progress Note ---
Assessment and Plan Cultures: None A/P: 61-year-old man past medical history CAD, ischemic cardiomyopathy now with: #Tricuspid valve endocarditis with MRSA: Also history of infected AICD, status post removal. Per notes from [facility], patient was supposed to be on 6 weeks post clearance of cultures of daptomycin ceftaroline. Patient reports that he was only given 7 days as outpatient, as such stopped last Friday. As such he has been without antibiotics for 5 days now. Expected stop date of antibiotics was to be 06/21/2021. #Dilated cardiomyopathy: Management per cardiology. Recs: -Check new blood cultures -Reinitiate daptomycin 6 mg/kg, ceftaroline every 8 hours due to endocarditis. -Case management consulted to expected end date of 06/21/2021 -He should follow-up with Dr. Bui/Kristi as an outpatient. Thank you for the consult, we will continue to follow. Marek Cleveland MD [facility] ([facility]) O: [phone] F: [phone] Subjective Date of service: 06/07/21 Principal diagnosis: 06/06/21 Interval history: Afebrile, normal white count. No new issues. Objective - Exam Narrative Exam: Physical Exam: Constitutional: Alert, cooperative. No acute distress Head, Ears, Nose: Normocephalic, atraumatic. External ears, nose normal Eyes: Conjunctivae/corneas clear. No icterus. No ptosis. Neck: Supple, no meningeal signs Oral: dentition fair, no thrush Cardiovascular: S1, S2 normal. Respiratory: Good air entry, clear to auscultation bilaterally GI: Soft, non-tender; bowel sounds normal. No peritoneal signs. Musculoskeletal: No pedal edema, no cyanosis. Skin: No rash or abscess Hem/Lymphatic: No palpable cervical or supraclavicular nodes. No lymphangitis Psych: Mood ok. Affect normal Neurological: Awake, alert, oriented. No gross abnormality - Constitutional Vitals: Vital Signs Temp Pulse Resp BP Pulse Ox 97.2 F L 80 16 116/83 99 06/07/21 10:56 06/07/21 10:56 06/07/21 10:56 06/07/21 10:56 06/07/21 10:56 Temperature -Last 24 Hours Temperature 97.2 F Temperature 98.5 F Temperature 98.3 F Temperature 98.2 F Temperature 97.6 F Temperature 97.3 F - Labs CBC & Chem 7: 06/06/21 05:18 06/06/21 05:18 Labs: Abnormal lab results 06/07/21 Range/Units 05:18 Total Creatine Kinase 256 H (55-170) units/L
[2021-06-08] MEDS: CEFTAROLINE FOSAMIL IV SCH ×3 (02:12→17:02)
[2021-06-08] MEDS: SODIUM CHLORIDE 0.9% IV SCH ×3 (02:12→17:02)
[2021-06-08] MEDS: FUROSEMIDE 40 MG/4 ML INJ IV SCH ×2 (05:11→17:02)
--- NOTE | 2021-06-08 05:31 | Progress Note ---
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 He has completed 7 days of outpatient IV antibiotic therapy. Infectious disease consultation, additional blood cultures at this time to assess for continued bacteremia following recent device infection. As per ID recommendations '#Tricuspid valve endocarditis with MRSA: Also history of infected AICD, status post removal. Per notes from [facility], patient was supposed to be on 6 weeks post clearance of cultures of daptomycin ceftaroline. Patient reports that he was only given 7 days as outpatient, as such stopped last Friday. As such he has been without antibiotics for 5 days now. Expected stop date of antibiotics was to be 06/21/2021. #Dilated cardiomyopathy: Management per cardiology. Recs: -Check new blood cultures -Reinitiate daptomycin 6 mg 6 mg/kg, ceftaroline every 8 hours due to endocarditis. -Case management consulted to expected end date of 06/21/2021 -He should follow-up with Dr. Bui/Kristi as an outpatient. " (2) Endocarditis Current Visit: Yes Status: Acute Qualifiers: Chronicity: acute Plan to address problem: Tricuspid valve endocarditis Recommendations of antibiotics till 06/21/2021 noted We will discuss with case management regarding IV antibiotic arrangement (3) Acute exacerbation of CHF (congestive heart failure) Current Visit: Yes Status: Acute Qualifiers: Heart failure type: combined systolic and diastolic Qualified Code(s): I50.43 - Acute on chronic combined systolic (congestive) and diastolic (congestive) heart failure Plan to address problem: Patient initiated on IV Lasix 40 mg every 12 Also Daily weights and intake and output Echocardiogram for ejection fraction Cardiology consult appreciated Plan to address problem: Patient has severe ischemic cardiomyopathy, coronary artery disease, on medical therapy. We will resume guideline directed medical therapy including his dual oral antiplatelet therapy baby aspirin and Brilinta. Most recent coronary intervention was 6 months ago. Historical Left ventricular ejection fraction was 15 to 20%. (4) Bilateral pneumonia Current Visit: Yes Status: Acute Plan to address problem: Unlikely We will start on IV antibiotics empirically for 24 to 48 hours Check prolactin (5) Tobacco abuse Current Visit: No Status: Chronic Plan to address problem: Patient counseled about nicotine dependence Was given options of Chantix and Wellbutrin And counseling (6) Hypertension Current Visit: Yes Status: Chronic Qualifiers: Hypertension type: primary hypertension Qualified Code(s): I10 - Essential (primary) hypertension Plan to address problem: Continue antihypertensives (7) Coronary artery disease Current Visit: Yes Status: Acute Qualifiers: Coronary Disease-Associated Artery/Lesion type: [place] artery [place] vs. transplanted heart: [place] heart Plan to address problem: Continue Brilinta (8) DVT prophylaxis Current Visit: Yes Status: Acute Plan to address problem: On heparin and GI prophylaxis (9) Advance care planning Current Visit: Yes Status: Acute Plan to address problem: Disease education conducted, care plan discussed, diagnosis discussed, prognosis discussed. Patient is full code. Patient acknowledges understanding and agreement with care plan. +30 minutes. (10) Anemia Current Visit: Yes Status: Chronic Qualifiers: Anemia type: unspecified type Qualified Code(s): D64.9 - Anemia, unspecified Plan to address problem: Anemia work-up (11) Endocarditis Current Visit: Yes Status: Acute Subjective Date of service: 06/07/21 Principal diagnosis: 06/06/21 Interval history: 61-year-old male with history of CHF, hyperlipidemia, hypertension and coronary artery disease comes in for increasing shortness of breath for 1 week. Short ness of breath on minimal exertion and patient has class IV NYHA symptoms. Patient is also orthopnea. No paroxysmal nocturnal dyspnea. No chest pain. Patient had a pacemaker removed recently 2 weeks ago and since then patient's shortness of breath is increased. Patient states that his EPS specialist is Dr. Amaro. June 06, 2021 Cardiology consult and ID consult appreciated Patient to continue IV antibiotics till 06/21/2021 Shortness of breath is better Patient counseled about noncompliance June 07 On IV abx for endocaeditis Otherwise comfortable Waiting for IV Abx in out patient setting Objective - Constitutional Vitals: Vital Signs - 12hr 06/07/21 06/07/21 06/07/21 19:27 20:52 21:00 Temperature 98.4 F Pulse Rate 76 91 H Respiratory 16 Rate Blood Pressure 99/67 O2 Sat by Pulse 95 98 Oximetry 06/07/21 06/08/21 23:15 03:08 Temperature 98.1 F 98.2 F Pulse Rate 82 91 H Respiratory 16 15 Rate Blood Pressure 94/61 90/51 O2 Sat by Pulse 96 94 Oximetry General appearance: Present: no acute distress, well-nourished - EENT Eyes: PERRL, EOM intact ENT: hearing intact, clear oral mucosa Ears: bilateral: normal - Neck Neck: supple, normal ROM - Respiratory Respiratory effort: normal Respiratory: bilateral: CTA - Breasts Breasts: normal - Cardiovascular Heart rate: 78 Rhythm: regular Heart Sounds: Present: S1 & S2. Absent: gallop, rub Extremities: pulses intact, No edema, normal color, Full ROM - Gastrointestinal General gastrointestinal: Present: soft, non-tender, non-distended, normal bowel sounds - Genitourinary Male genitourinary: normal - Integumentary Integumentary: clear, warm, dry - Musculoskeletal Musculoskeletal: 1, strength equal bilaterally - Neurologic Neurologic: moves all extremities - Psychiatric Psychiatric: memory intact, appropriate mood/affect, intact judgment & insight - Labs CBC & Chem 7: 06/06/21 05:18 06/06/21 05:18 Labs: Abnormal lab results 06/07/21 Range/Units 05:18 Total Creatine Kinase 256 H (55-170) units/L HEART Score - HEART Score EKG: Non-specific Age: 45-65 Risk factors: > 3 risk factors or hx of atherosclerotic disease Troponin: Troponin T < 0.010 ng/mL (0.00-0.029) 06/05/21 16:37 Troponin: < normal limit
[2021-06-08] MEDS: SPIRONOLACTONE 25 MG TAB PO SCH (09:46)
[2021-06-08] MEDS: ASPIRIN EC 81 MG TAB PO SCH (09:46)
[2021-06-08] MEDS: carvediloL 6.25 MG TAB PO SCH ×2 (09:46→21:46)
[2021-06-08] MEDS: HEPARIN 5,000 UNIT/1 ML VIAL SUB-Q SCH ×2 (09:47→21:47)
[2021-06-08] MEDS: LOSARTAN 50 MG TAB PO SCH (09:47)
[2021-06-08] MEDS: FAMOTIDINE 20 MG TAB PO SCH ×2 (09:47→21:46)
[2021-06-08] MEDS: TICAGRELOR 90 MG TAB PO SCH ×2 (09:47→21:47)
--- NOTE | 2021-06-08 10:29 | Progress Note ---
Assessment and Plan Cultures: None A/P: 61-year-old man past medical history CAD, ischemic cardiomyopathy now with: #Tricuspid valve endocarditis with MRSA: Also history of infected AICD, status post removal. Per notes from [facility], patient was supposed to be on 6 weeks post clearance of cultures of daptomycin ceftaroline. Patient reports that he was only given 7 days as outpatient, as such stopped last Friday. As such he has been without antibiotics for 5 days now. Expected stop date of antibiotics was to be 06/21/2021. #Dilated cardiomyopathy: Management per cardiology. Recs: -Check new blood cultures -Reinitiate daptomycin 6 mg/kg, ceftaroline every 8 hours due to endocarditis. -Case management consulted to expected end date of 06/21/2021 -He should follow-up with Dr. Bui/Kristi as an outpatient. Thank you for the consult, we will sign off. Please call with questions Marek Cleveland MD [facility] O: [phone] F: [phone] Subjective Date of service: 06/08/21 Principal diagnosis: 06/06/21 Interval history: Afebrile, normal white count Objective - Exam Narrative Exam: Physical Exam: Constitutional: Alert, cooperative. No acute distress Head, Ears, Nose: Normocephalic, atraumatic. External ears, nose normal Eyes: Conjunctivae/corneas clear. No icterus. No ptosis. Neck: Supple, no meningeal signs Oral: dentition fair, no thrush Cardiovascular: S1, S2 normal. Respiratory: Good air entry, clear to auscultation bilaterally GI: Soft, non-tender; bowel sounds normal. No peritoneal signs. Musculoskeletal: No pedal edema, no cyanosis. Skin: No rash or abscess Hem/Lymphatic: No palpable cervical or supraclavicular nodes. No lymphangitis Psych: Mood ok. Affect normal Neurological: Awake, alert, oriented. No gross abnormality - Constitutional Vitals: Vital Signs Temp Pulse Resp BP Pulse Ox 98.3 F 91 H 18 106/69 94 06/08/21 08:37 06/08/21 03:08 06/08/21 08:37 06/08/21 08:37 06/08/21 03:08 Temperature -Last 24 Hours Temperature 98.3 F Temperature 98.2 F Temperature 98.1 F Temperature 98.4 F Temperature 97.5 F Temperature 97.2 F - Labs CBC & Chem 7: 06/06/21 05:18 06/06/21 05:18 Labs: Abnormal lab results 06/07/21 Range/Units 05:18 Total Creatine Kinase 256 H (55-170) units/L
--- NOTE | 2021-06-08 19:06 | Progress Note ---
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 He has completed 7 days of outpatient IV antibiotic therapy. Infectious disease consultation, additional blood cultures at this time to assess for continued bacteremia following recent device infection. As per ID recommendations '#Tricuspid valve endocarditis with MRSA: Also history of infected AICD, status post removal. Per notes from [facility], patient was supposed to be on 6 weeks post clearance of cultures of daptomycin ceftaroline. Patient reports that he was only given 7 days as outpatient, as such stopped last Friday. As such he has been without antibiotics for 5 days now. Expected stop date of antibiotics was to be 06/21/2021. #Dilated cardiomyopathy: Management per cardiology. Recs: -Check new blood cultures -Reinitiate daptomycin 6 mg 6 mg/kg, ceftaroline every 8 hours due to endocarditis. -Case management consulted to expected end date of 06/21/2021 -He should follow-up with Dr. Bui/Kristi as an outpatient. " (2) Endocarditis Current Visit: Yes Status: Acute Qualifiers: Chronicity: acute Plan to address problem: Tricuspid valve endocarditis Recommendations of antibiotics till 06/21/2021 noted We will discuss with case management regarding IV antibiotic arrangement (3) Acute exacerbation of CHF (congestive heart failure) Current Visit: Yes Status: Acute Qualifiers: Heart failure type: combined systolic and diastolic Qualified Code(s): I50.43 - Acute on chronic combined systolic (congestive) and diastolic (congestive) heart failure Plan to address problem: Patient initiated on IV Lasix 40 mg every 12 Also Daily weights and intake and output Echocardiogram for ejection fraction Cardiology consult appreciated Plan to address problem: Patient has severe ischemic cardiomyopathy, coronary artery disease, on medical therapy. We will resume guideline directed medical therapy including his dual oral antiplatelet therapy baby aspirin and Brilinta. Most recent coronary intervention was 6 months ago. Historical Left ventricular ejection fraction was 15 to 20%. (4) Bilateral pneumonia Current Visit: Yes Status: Acute Plan to address problem: Unlikely We will start on IV antibiotics empirically for 24 to 48 hours Check prolactin (5) Tobacco abuse Current Visit: No Status: Chronic Plan to address problem: Patient counseled about nicotine dependence Was given options of Chantix and Wellbutrin And counseling (6) Hypertension Current Visit: Yes Status: Chronic Qualifiers: Hypertension type: primary hypertension Qualified Code(s): I10 - Essential (primary) hypertension Plan to address problem: Continue antihypertensives (7) Coronary artery disease Current Visit: Yes Status: Acute Qualifiers: Coronary Disease-Associated Artery/Lesion type: [place] artery [place] vs. transplanted heart: [place] heart Plan to address problem: Continue Brilinta (8) DVT prophylaxis Current Visit: Yes Status: Acute Plan to address problem: On heparin and GI prophylaxis (9) Advance care planning Current Visit: Yes Status: Acute Plan to address problem: Disease education conducted, care plan discussed, diagnosis discussed, prognosis discussed. Patient is full code. Patient acknowledges understanding and agreement with care plan. +30 minutes. (10) Anemia Current Visit: Yes Status: Chronic Qualifiers: Anemia type: unspecified type Qualified Code(s): D64.9 - Anemia, unspecified Plan to address problem: Anemia work-up (11) Endocarditis Current Visit: Yes Status: Acute Subjective Date of service: 06/08/21 Principal diagnosis: 06/06/21 Interval history: 61-year-old male with history of CHF, hyperlipidemia, hypertension and coronary artery disease comes in for increasing shortness of breath for 1 week. Short ness of breath on minimal exertion and patient has class IV NYHA symptoms. Patient is also orthopnea. No paroxysmal nocturnal dyspnea. No chest pain. Patient had a pacemaker removed recently 2 weeks ago and since then patient's shortness of breath is increased. Patient states that his EPS specialist is Dr. Amaro. June 06, 2021 Cardiology consult and ID consult appreciated Patient to continue IV antibiotics till 06/21/2021 Shortness of breath is better Patient counseled about noncompliance June 07 through June 08 On IV abx for endocaeditis Otherwise comfortable Waiting for IV Abx in out patient setting Objective - Constitutional Vitals: Vital Signs - 12hr 06/08/21 06/08/21 06/08/21 07:30 08:37 11:20 Temperature 98.3 F Pulse Rate 79 81 Pulse Rate [ From Monitor] Respiratory 18 Rate Blood Pressure 106/69 101/57 O2 Sat by Pulse 94 Oximetry 06/08/21 06/08/21 15:11 16:13 Temperature 97.7 F Pulse Rate Pulse Rate [ 79 From Monitor] Respiratory 18 18 Rate Blood Pressure 111/61 O2 Sat by Pulse 98 Oximetry General appearance: Present: no acute distress, well-nourished - EENT Eyes: PERRL, EOM intact ENT: hearing intact, clear oral mucosa Ears: bilateral: normal - Neck Neck: supple, normal ROM - Respiratory Respiratory effort: normal Respiratory: bilateral: CTA - Breasts Breasts: normal - Cardiovascular Heart rate: 88 Rhythm: regular Heart Sounds: Present: S1 & S2. Absent: gallop, rub Extremities: pulses intact, No edema, normal color, Full ROM - Gastrointestinal General gastrointestinal: Present: soft, non-tender, non-distended, normal bowel sounds - Genitourinary Male genitourinary: normal - Integumentary Integumentary: clear, warm, dry - Musculoskeletal Musculoskeletal: 1, strength equal bilaterally - Neurologic Neurologic: moves all extremities - Psychiatric Psychiatric: memory intact, appropriate mood/affect, intact judgment & insight - Labs CBC & Chem 7: 06/06/21 05:18 06/06/21 05:18 HEART Score - HEART Score EKG: Non-specific Age: 45-65 Risk factors: > 3 risk factors or hx of atherosclerotic disease Troponin: Troponin T < 0.010 ng/mL (0.00-0.029) 06/05/21 16:37 Troponin: < normal limit
--- NOTE | 2021-06-08 23:26 | Progress Note ---
Assessment and Plan - Patient Problems (1) CHF (congestive heart failure) Current Visit: Yes Status: Acute (2) Coronary artery disease Current Visit: Yes Status: Acute Qualifiers: Coronary Disease-Associated Artery/Lesion type: [place] artery [place] vs. transplanted heart: [place] heart (3) Dilated cardiomyopathy Current Visit: Yes Status: Acute Subjective Date of service: 06/08/21 Principal diagnosis: 06/06/21 Interval history: FEELS ALITTLE BETTER Objective Vital Signs Temp Pulse Pulse Resp BP Pulse Ox 06/08/21 19:39 98.2 F 76 16 99/61 89 06/08/21 16:13 97.7 F 18 111/61 06/08/21 15:11 79 18 98 06/08/21 11:20 81 101/57 94 06/08/21 08:37 98.3 F 18 106/69 06/08/21 07:30 79 06/08/21 03:08 98.2 F 91 H 15 90/51 94 - Physical Examination General: No Apparent Distress HEENT: Positive: PERRL Neck: Positive: neck supple, JVD/HJR Cardiac: Positive: Reg Rate and Rhythm Lungs: Positive: clear to auscultation Neuro: Positive: Grossly Intact Abdomen: Positive: Soft Skin: Positive: Clear Extremities: Present: Other (NO EDEMA). Absent: edema - Imaging and Cardiology EKG: report reviewed (Sinus tachycardia no acute ST-T wave changes)
[2021-06-09] MEDS: SODIUM CHLORIDE 0.9% IV SCH ×3 (01:49→17:05)
[2021-06-09] MEDS: CEFTAROLINE FOSAMIL IV SCH ×3 (01:49→17:05)
[2021-06-09] MEDS: FUROSEMIDE 40 MG/4 ML INJ IV SCH ×2 (06:35→19:02)
[2021-06-09] MEDS: TICAGRELOR 90 MG TAB PO SCH ×2 (09:50→21:38)
[2021-06-09] MEDS: FAMOTIDINE 20 MG TAB PO SCH ×2 (09:50→21:38)
[2021-06-09] MEDS: ASPIRIN EC 81 MG TAB PO SCH (09:50)
[2021-06-09] MEDS: HEPARIN 5,000 UNIT/1 ML VIAL SUB-Q SCH ×2 (09:51→21:38)
[2021-06-09] MEDS: LOSARTAN 50 MG TAB PO SCH (11:19)
[2021-06-09] MEDS: SPIRONOLACTONE 25 MG TAB PO SCH (11:19)
[2021-06-09] MEDS: carvediloL 6.25 MG TAB PO SCH ×2 (12:12→21:38)
--- NOTE | 2021-06-09 19:37 | Progress Note ---
Assessment and Plan - Patient Problems (1) CHF (congestive heart failure) Current Visit: Yes Status: Acute (2) Coronary artery disease Current Visit: Yes Status: Acute Qualifiers: Coronary Disease-Associated Artery/Lesion type: [place] artery [place] vs. transplanted heart: [place] heart (3) Dilated cardiomyopathy Current Visit: Yes Status: Acute Subjective Date of service: 06/09/21 Principal diagnosis: 06/06/21 Interval history: SLEEPING Objective Vital Signs Temp Pulse Pulse Resp BP BP Pulse Ox 06/09/21 19:00 102/71 06/09/21 15:49 98.4 F 84 18 98/67 97 06/09/21 12:12 93/59 06/09/21 12:08 82 18 98 06/09/21 12:00 90 06/09/21 11:35 98.6 F 83 18 93/59 97 06/09/21 11:19 94/63 06/09/21 07:45 98.4 F 95 H 18 94/63 93 06/09/21 04:00 94 H 06/09/21 03:43 98.6 F 82 16 99/66 98 06/09/21 03:00 99 06/08/21 23:23 99.2 F 94 H 16 90/61 95 06/08/21 19:39 98.2 F 76 16 99/61 89 - Physical Examination General: No Apparent Distress Neck: Positive: neck supple, JVD/HJR Cardiac: Positive: Reg Rate and Rhythm Lungs: Positive: Decreased Breath Sounds Neuro: Positive: Grossly Intact Abdomen: Positive: Soft Skin: Positive: Clear Extremities: Present: Other (NO EDEMA). Absent: edema - Imaging and Cardiology EKG: report reviewed (Sinus tachycardia no acute ST-T wave changes)
[2021-06-10] MEDS: CEFTAROLINE FOSAMIL IV SCH ×3 (03:05→17:35)
[2021-06-10] MEDS: SODIUM CHLORIDE 0.9% IV SCH ×3 (03:05→17:35)
[2021-06-10] MEDS: FAMOTIDINE 20 MG TAB PO SCH ×2 (09:44→21:17)
[2021-06-10] MEDS: HEPARIN 5,000 UNIT/1 ML VIAL SUB-Q SCH ×2 (09:45→21:17)
[2021-06-10] MEDS: ASPIRIN EC 81 MG TAB PO SCH (09:45)
[2021-06-10] MEDS: LOSARTAN 50 MG TAB PO SCH (09:45)
[2021-06-10] MEDS: TICAGRELOR 90 MG TAB PO SCH ×2 (09:45→21:17)
[2021-06-10] MEDS: FUROSEMIDE 40 MG TAB PO SCH (11:20)
[2021-06-10] MEDS: SPIRONOLACTONE 25 MG TAB PO SCH (11:20)
--- NOTE | 2021-06-10 11:55 | Progress Note ---
Assessment and Plan - Patient Problems (1) CHF (congestive heart failure) Current Visit: Yes Status: Acute (2) Coronary artery disease Current Visit: Yes Status: Acute Qualifiers: Coronary Disease-Associated Artery/Lesion type: [place] artery [place] vs. transplanted heart: [place] heart (3) Dilated cardiomyopathy Current Visit: Yes Status: Acute Subjective Date of service: 06/10/21 Principal diagnosis: 06/06/21 Interval history: SLEEPING Objective Vital Signs Temp Pulse Pulse Resp BP BP Pulse Ox 06/10/21 11:20 95/64 06/10/21 10:43 80 18 99 06/10/21 09:45 95/64 06/10/21 07:48 97.8 F 89 18 95/64 94 06/10/21 04:51 92 H 06/10/21 03:21 98 06/10/21 03:19 98.6 F 85 12 92/57 96 06/09/21 23:25 98.7 F 102 H 16 99/63 97 06/09/21 19:15 97.6 F 88 19 108/69 96 06/09/21 19:00 102/71 06/09/21 15:49 98.4 F 84 18 98/67 97 06/09/21 12:12 93/59 06/09/21 12:08 82 18 98 06/09/21 12:00 90 06/09/21 11:35 98.6 F 83 18 93/59 97 06/09/21 11:19 94/63 - Physical Examination General: No Apparent Distress HEENT: Positive: PERRL Neck: Positive: neck supple, JVD/HJR Cardiac: Positive: Reg Rate and Rhythm Lungs: Positive: clear to auscultation Neuro: Positive: Grossly Intact Abdomen: Positive: Soft Skin: Positive: Clear Extremities: Present: Other (NO EDEMA). Absent: edema - Imaging and Cardiology EKG: report reviewed (Sinus tachycardia no acute ST-T wave changes)
[2021-06-10] MEDS: carvediloL 6.25 MG TAB PO SCH ×2 (13:29→23:47)
[2021-06-11] MEDS: CEFTAROLINE FOSAMIL IV SCH ×3 (02:10→21:26)
[2021-06-11] MEDS: SODIUM CHLORIDE 0.9% IV SCH ×3 (02:10→21:26)
--- NOTE | 2021-06-11 08:38 | Progress Note ---
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 He has completed 7 days of outpatient IV antibiotic therapy. Infectious disease consultation, additional blood cultures at this time to assess for continued bacteremia following recent device infection. As per ID recommendations '#Tricuspid valve endocarditis with MRSA: Also history of infected AICD, status post removal. Per notes from [facility], patient was supposed to be on 6 weeks post clearance of cultures of daptomycin ceftaroline. Patient reports that he was only given 7 days as outpatient, as such stopped last Friday. As such he has been without antibiotics for 5 days now. Expected stop date of antibiotics was to be 06/21/2021. #Dilated cardiomyopathy: Management per cardiology. Recs: -Check new blood cultures -Reinitiate daptomycin 6 mg 6 mg/kg, ceftaroline every 8 hours due to endocarditis. -Case management consulted to expected end date of 06/21/2021 -He should follow-up with Dr. Bui/Kristi as an outpatient. " (2) Endocarditis Current Visit: Yes Status: Acute Qualifiers: Chronicity: acute Plan to address problem: Tricuspid valve endocarditis Recommendations of antibiotics till 06/21/2021 noted We will discuss with case management regarding IV antibiotic arrangement (3) Acute exacerbation of CHF (congestive heart failure) Current Visit: Yes Status: Acute Qualifiers: Heart failure type: combined systolic and diastolic Qualified Code(s): I50.43 - Acute on chronic combined systolic (congestive) and diastolic (congestive) heart failure Plan to address problem: Patient initiated on IV Lasix 40 mg every 12 Also Daily weights and intake and output Echocardiogram for ejection fraction Cardiology consult appreciated Plan to address problem: Patient has severe ischemic cardiomyopathy, coronary artery disease, on medical therapy. We will resume guideline directed medical therapy including his dual oral antiplatelet therapy baby aspirin and Brilinta. Most recent coronary intervention was 6 months ago. Historical Left ventricular ejection fraction was 15 to 20%. (4) Bilateral pneumonia Current Visit: Yes Status: Acute Plan to address problem: Unlikely We will start on IV antibiotics empirically for 24 to 48 hours Check prolactin (5) Tobacco abuse Current Visit: No Status: Chronic Plan to address problem: Patient counseled about nicotine dependence Was given options of Chantix and Wellbutrin And counseling (6) Hypertension Current Visit: Yes Status: Chronic Qualifiers: Hypertension type: primary hypertension Qualified Code(s): I10 - Essential (primary) hypertension Plan to address problem: Continue antihypertensives (7) Coronary artery disease Current Visit: Yes Status: Acute Qualifiers: Coronary Disease-Associated Artery/Lesion type: [place] artery [place] vs. transplanted heart: [place] heart Plan to address problem: Continue Brilinta (8) DVT prophylaxis Current Visit: Yes Status: Acute Plan to address problem: On heparin and GI prophylaxis (9) Advance care planning Current Visit: Yes Status: Acute Plan to address problem: Disease education conducted, care plan discussed, diagnosis discussed, prognosis discussed. Patient is full code. Patient acknowledges understanding and agreement with care plan. +30 minutes. (10) Anemia Current Visit: Yes Status: Chronic Qualifiers: Anemia type: unspecified type Qualified Code(s): D64.9 - Anemia, unspecified Plan to address problem: Anemia work-up (11) Endocarditis Current Visit: Yes Status: Acute Subjective Date of service: 06/09/21 Principal diagnosis: Trisuspid valve Endocarditis,CHF exacerbation Interval history: 61-year-old male with history of CHF, hyperlipidemia, hypertension and coronary artery disease comes in for increasing shortness of breath for 1 week. Shortness of breath on minimal exertion and patient has class IV NYHA symptoms. Patient is also orthopnea. No paroxysmal nocturnal dyspnea. No chest pain. Patient had a pacemaker removed recently 2 weeks ago and since then patient's shortness of breath is increased. Patient states that his EPS specialist is Dr. Amaro. June 06, 2021 Cardiology consult and ID consult appreciated Patient to continue IV antibiotics till 06/21/2021 Shortness of breath is better Patient counseled about noncompliance June 07 through June 09 On IV abx for endocaeditis Otherwise comfortable Waiting for IV Abx in out patient setting Objective - Constitutional Vitals: Vital Signs - 12hr 06/10/21 06/10/21 06/10/21 22:00 23:27 23:47 Temperature 98.0 F Pulse Rate 91 H 91 H Respiratory 12 Rate Blood Pressure 123/81 123/81 O2 Sat by Pulse 96 96 Oximetry 06/11/21 06/11/21 06/11/21 03:34 07:44 08:16 Temperature 98.5 F 98.6 F Pulse Rate 101 H 82 Respiratory 12 16 Rate Blood Pressure 100/62 106/71 O2 Sat by Pulse 98 98 96 Oximetry General appearance: Present: no acute distress, well-nourished - EENT Eyes: PERRL, EOM intact ENT: hearing intact, clear oral mucosa Ears: bilateral: normal - Neck Neck: supple, normal ROM - Respiratory Respiratory effort: normal Respiratory: bilateral: CTA - Breasts Breasts: normal - Cardiovascular Heart rate: 78 Rhythm: regular Heart Sounds: Present: S1 & S2. Absent: gallop, rub Extremities: pulses intact, No edema, normal color, Full ROM - Gastrointestinal General gastrointestinal: Present: soft, non-tender, non-distended, normal bowel sounds - Genitourinary Male genitourinary: normal - Integumentary Integumentary: clear, warm, dry - Musculoskeletal Musculoskeletal: 1, strength equal bilaterally - Neurologic Neurologic: moves all extremities - Psychiatric Psychiatric: memory intact, appropriate mood/affect, intact judgment & insight - Labs CBC & Chem 7: 06/06/21 05:18 06/06/21 05:18 Labs: Abnormal lab results 06/11/21 Range/Units 05:12 Total Creatine Kinase 49 L (55-170) units/L HEART Score - HEART Score EKG: Non-specific Age: 45-65 Risk factors: > 3 risk factors or hx of atherosclerotic disease Troponin: Troponin T < 0.010 ng/mL (0.00-0.029) 06/05/21 16:37 Troponin: < normal limit
--- NOTE | 2021-06-11 08:40 | Progress Note ---
Assessment and Plan - Patient Problems (1) Endocarditis Current Visit: Yes Status: Acute Qualifiers: Chronicity: acute Plan to address problem: Tricuspid valve endocarditis Recommendations of antibiotics till 06/21/2021 noted We will discuss with case management regarding IV antibiotic arrangement Per ID --- "#Tricuspid valve endocarditis with MRSA: Also history of infected AICD, status post removal. Per notes from [facility], patient was supposed to be on 6 weeks post clearance of cultures of daptomycin ceftaroline. Patient reports that he was only given 7 days as outpatient, as such stopped last Friday. As such he has been without antibiotics for 5 days now. Expected stop date of antibiotics was to be 06/21/2021. #Dilated cardiomyopathy: Management per cardiology. Recs: -Check new blood cultures -Reinitiate daptomycin 6 mg/kg, ceftaroline every 8 hours due to endocarditis. -Case management consulted to expected end date of 06/21/2021 -He should follow-up with Dr. Bui/Kristi as an outpatient. 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 He has completed 7 days of outpatient IV antibiotic therapy. Infectious disease consultation, additional blood cultures at this time to assess for continued bacteremia following recent device infection. As per ID recommendations '#Tricuspid valve endocarditis with MRSA: Also history of infected AICD, status post removal. Per notes from [facility], patient was supposed to be on 6 weeks post clearance of cultures of daptomycin ceftaroline. Patient reports that he was only given 7 days as outpatient, as such stopped last Friday. As such he has been without antibiotics for 5 days now. Expected stop date of antibiotics was to be 06/21/2021. #Dilated cardiomyopathy: Management per cardiology. Recs: -Check new blood cultures -Reinitiate daptomycin 6 mg 6 mg/kg, ceftaroline every 8 hours due to endocarditis. -Case management consulted to expected end date of 06/21/2021 -He should follow-up with Dr. Bui/Kristi as an outpatient. " (3) Acute exacerbation of CHF (congestive heart failure) Current Visit: Yes Status: Acute Qualifiers: Heart failure type: combined systolic and diastolic Qualified Code(s): I50.43 - Acute on chronic combined systolic (congestive) and diastolic (congestive) heart failure Plan to address problem: Patient initiated on IV Lasix 40 mg every 12 Also Daily weights and intake and output Echocardiogram for ejection fraction Cardiology consult appreciated Plan to address problem: Patient has severe ischemic cardiomyopathy, coronary artery disease, on medical therapy. We will resume guideline directed medical therapy including his dual oral antiplatelet therapy baby aspirin and Brilinta. Most recent coronary intervention was 6 months ago. Historical Left ventricular ejection fraction was 15 to 20%. (4) Bilateral pneumonia Current Visit: Yes Status: Acute Plan to address problem: Unlikely On abx for Endocarditis --which should work for possible pneumonia \\ (5) Tobacco abuse Current Visit: No Status: Chronic Plan to address problem: Patient counseled about nicotine dependence Was given options of Chantix and Wellbutrin And counseling (6) Hypertension Current Visit: Yes Status: Chronic Qualifiers: Hypertension type: primary hypertension Qualified Code(s): I10 - Essential (primary) hypertension Plan to address problem: Continue antihypertensives (7) Coronary artery disease Current Visit: Yes Status: Acute Qualifiers: Coronary Disease-Associated Artery/Lesion type: [place] artery [place] vs. transplanted heart: [place] heart Plan to address problem: Continue Brilinta (8) DVT prophylaxis Current Visit: Yes Status: Acute Plan to address problem: On heparin and GI prophylaxis (9) Advance care planning Current Visit: Yes Status: Acute Plan to address problem: Disease education conducted, care plan discussed, diagnosis discussed, prognosis discussed. Patient is full code. Patient acknowledges understanding and agreement with care plan. +30 minutes. (10) Anemia Current Visit: Yes Status: Chronic Qualifiers: Anemia type: unspecified type Qualified Code(s): D64.9 - Anemia, unspecified Plan to address problem: Anemia work-up (11) Endocarditis Current Visit: Yes Status: Acute Subjective Date of service: 06/10/21 Principal diagnosis: Endocarditis,CHF ICD wire infection Interval history: 61-year-old male with history of CHF, hyperlipidemia, hypertension and coronary artery disease comes in for increasing shortness of breath for 1 week. Shortness of breath on minimal exertion and patient has class IV NYHA symptoms. Patient is also orthopnea. No paroxysmal nocturnal dyspnea. No chest pain. Patient had a pacemaker removed recently 2 weeks ago and since then patient's shortness of breath is increased. Patient states that his EPS specialist is Dr. Amaro. June 06, 2021 Cardiology consult and ID consult appreciated Patient to continue IV antibiotics till 06/21/2021 Shortness of breath is better Patient counseled about noncompliance Jun 07 through On IV abx for endocarditis Otherwise doing well If IV abx arranged for out patient setting --patient can be discharged. Objective - Constitutional Vitals: Vital Signs - 12hr 06/10/21 06/10/21 06/10/21 22:00 23:27 23:47 Temperature 98.0 F Pulse Rate 91 H 91 H Respiratory 12 Rate Blood Pressure 123/81 123/81 O2 Sat by Pulse 96 96 Oximetry 06/11/21 06/11/21 06/11/21 03:34 07:44 08:16 Temperature 98.5 F 98.6 F Pulse Rate 101 H 82 Respiratory 12 16 Rate Blood Pressure 100/62 106/71 O2 Sat by Pulse 98 98 96 Oximetry General appearance: Present: no acute distress, well-nourished - EENT Eyes: PERRL, EOM intact ENT: hearing intact, clear oral mucosa Ears: bilateral: normal - Neck Neck: supple, normal ROM - Respiratory Respiratory effort: normal Respiratory: bilateral: CTA - Breasts Breasts: normal - Cardiovascular Rhythm: regular Heart Sounds: Present: S1 & S2. Absent: gallop, rub Extremities: pulses intact, No edema, normal color, Full ROM - Gastrointestinal General gastrointestinal: Present: soft, non-tender, non-distended, normal bowel sounds - Genitourinary Male genitourinary: normal - Integumentary Integumentary: clear, warm, dry - Musculoskeletal Musculoskeletal: 1, strength equal bilaterally - Neurologic Neurologic: moves all extremities - Psychiatric Psychiatric: memory intact, appropriate mood/affect, intact judgment & insight - Labs CBC & Chem 7: 06/06/21 05:18 06/06/21 05:18 Labs: Abnormal lab results 06/11/21 Range/Units 05:12 Total Creatine Kinase 49 L (55-170) units/L HEART Score - HEART Score EKG: Non-specific Age: 45-65 Risk factors: > 3 risk factors or hx of atherosclerotic disease Troponin: Troponin T < 0.010 ng/mL (0.00-0.029) 06/05/21 16:37 Troponin: < normal limit
[2021-06-11] MEDS: SPIRONOLACTONE 25 MG TAB PO SCH (09:49)
[2021-06-11] MEDS: ASPIRIN EC 81 MG TAB PO SCH (09:49)
[2021-06-11] MEDS: FUROSEMIDE 40 MG TAB PO SCH (09:50)
[2021-06-11] MEDS: HEPARIN 5,000 UNIT/1 ML VIAL SUB-Q SCH ×2 (09:50→21:25)
[2021-06-11] MEDS: TICAGRELOR 90 MG TAB PO SCH ×2 (09:50→21:26)
[2021-06-11] MEDS: FAMOTIDINE 20 MG TAB PO SCH ×2 (09:50→21:25)
[2021-06-11] MEDS: carvediloL 6.25 MG TAB PO SCH ×2 (09:50→22:11)
[2021-06-11] MEDS: LOSARTAN 50 MG TAB PO SCH (09:50)
--- NOTE | 2021-06-11 13:19 | Progress Note ---
Assessment and Plan - Patient Problems (1) CHF (congestive heart failure) Current Visit: Yes Status: Acute (2) Coronary artery disease Current Visit: Yes Status: Acute Qualifiers: Coronary Disease-Associated Artery/Lesion type: [place] artery [place] vs. transplanted heart: [place] heart (3) Dilated cardiomyopathy Current Visit: Yes Status: Acute Subjective Date of service: 06/11/21 Principal diagnosis: 06/06/21 Interval history: SLEEPING Objective Vital Signs Temp Pulse Resp BP Pulse Ox 06/11/21 12:04 97.9 F 77 16 93/60 99 06/11/21 08:16 96 06/11/21 07:44 98.6 F 82 16 106/71 98 06/11/21 03:34 98.5 F 101 H 12 100/62 98 06/10/21 23:47 91 H 123/81 06/10/21 23:27 98.0 F 91 H 12 123/81 96 06/10/21 22:00 96 06/10/21 19:22 97.7 F 85 14 105/74 96 06/10/21 16:30 98.7 F 92 H 18 102/66 97 06/10/21 13:29 95/61 - Physical Examination General: No Apparent Distress HEENT: Positive: PERRL Neck: Positive: neck supple, JVD/HJR Cardiac: Positive: Reg Rate and Rhythm Lungs: Positive: clear to auscultation Neuro: Positive: Grossly Intact Abdomen: Positive: Soft Skin: Positive: Clear Extremities: Present: Other (NO EDEMA). Absent: edema - Imaging and Cardiology EKG: report reviewed (Sinus tachycardia no acute ST-T wave changes)
[2021-06-12] MEDS: SODIUM CHLORIDE 0.9% IV SCH ×3 (02:53→20:48)
[2021-06-12] MEDS: CEFTAROLINE FOSAMIL IV SCH ×3 (02:53→20:48)
[2021-06-12] MEDS: FAMOTIDINE 20 MG TAB PO SCH ×2 (10:34→21:01)
[2021-06-12] MEDS: SPIRONOLACTONE 25 MG TAB PO SCH (10:34)
[2021-06-12] MEDS: FUROSEMIDE 40 MG TAB PO SCH (10:34)
[2021-06-12] MEDS: TICAGRELOR 90 MG TAB PO SCH ×2 (10:34→21:02)
[2021-06-12] MEDS: ASPIRIN EC 81 MG TAB PO SCH (10:34)
[2021-06-12] MEDS: HEPARIN 5,000 UNIT/1 ML VIAL SUB-Q SCH ×2 (10:35→21:01)
[2021-06-12] MEDS: carvediloL 6.25 MG TAB PO SCH ×2 (10:35→21:01)
[2021-06-12] MEDS: LOSARTAN 50 MG TAB PO SCH (10:35)
--- NOTE | 2021-06-12 10:37 | Progress Note ---
Assessment and Plan Assessment and plan: Tricuspid valve endocarditis AICD infection Dilated cardiomyopathy 06/12/2021. We will follow-up new blood cultures. ID evaluated the patient and reinitiated daptomycin 6 mg/kg, ceftaroline every 8 hours due to endocarditis. Case management consulted to expected end date of 06/21/2021. ID reports that the patient should follow-up with Dr. Bui/Kristi as an outpatient. The patient with 5 runs of V. tach. I suspect patient will need LifeVest at discharge. We will defer to cardiology. History Interval history: No new issues overnight Hospitalist Physical - Constitutional Vitals: Temp Pulse Resp BP Pulse Ox 97.9 F 65 16 87/54 96 06/12/21 08:56 06/12/21 08:56 06/12/21 08:56 06/12/21 08:56 06/12/21 08:56 General appearance: Present: no acute distress, well-nourished - EENT Eyes: Present: PERRL, EOM intact ENT: hearing intact, clear oral mucosa, dentition normal - Neck Neck: Present: supple, normal ROM - Respiratory Respiratory effort: normal Respiratory: bilateral: CTA - Cardiovascular Rhythm: regular Heart Sounds: Present: S1 & S2. Absent: gallop, rub - Extremities Extremities: no ischemia, No edema, Full ROM - Abdominal General gastrointestinal: soft, non-tender, non-distended, normal bowel sounds - Integumentary Integumentary: Present: clear, warm, dry - Neurologic Neurologic: CNII-XII intact, moves all extremities HEART Score - HEART Score EKG: Non-specific Age: 45-65 Risk factors: > 3 risk factors or hx of atherosclerotic disease Troponin: Troponin T < 0.010 ng/mL (0.00-0.029) 06/05/21 16:37 Troponin: < normal limit Results - Labs CBC & Chem 7: 06/06/21 05:18 06/06/21 05:18 Labs: Laboratory Last Values WBC 6.6 K/mm3 (4.5-11.0) 06/06/21 05:18 RBC 2.52 M/mm3 (3.65-5.03) L 06/06/21 05:18 Hgb 7.6 gm/dl (11.8-15.2) L 06/06/21 05:18 Hct 22.9 % (35.5-45.6) L 06/06/21 05:18 MCV 91 fl (84-94) 06/06/21 05:18 MCH 30 pg (28-32) 06/06/21 05:18 MCHC 33 % (32-34) 06/06/21 05:18 RDW 15.4 % (13.2-15.2) H 06/06/21 05:18 Plt Count 264 K/mm3 (140-440) 06/06/21 05:18 Lymph % (Auto) 27.2 % (13.4-35.0) 06/06/21 05:18 [place] % (Auto) 9.2 % (0.0-7.3) H 06/06/21 05:18 Eos % (Auto) 3.2 % (0.0-4.3) 06/06/21 05:18 Baso % (Auto) 1.9 % (0.0-1.8) H 06/06/21 05:18 Lymph # (Auto) 1.8 K/mm3 (1.2-5.4) 06/06/21 05:18 [place] # (Auto) 0.6 K/mm3 (0.0-0.8) 06/06/21 05:18 Eos # (Auto) 0.2 K/mm3 (0.0-0.4) 06/06/21 05:18 Baso # (Auto) 0.1 K/mm3 (0.0-0.1) 06/06/21 05:18 Seg Neutrophils % 58.5 % (40.0-70.0) 06/06/21 05:18 Seg Neutrophils # 3.9 K/mm3 (1.8-7.7) 06/06/21 05:18 PT 15.7 Sec. (12.2-14.9) H 06/05/21 16:37 INR 1.12 (0.87-1.13) 06/05/21 16:37 Sodium 140 mmol/L (137-145) 06/06/21 05:18 Potassium 4.1 mmol/L (3.6-5.0) 06/06/21 05:18 Chloride 103.1 mmol/L (98-107) 06/06/21 05:18 Carbon Dioxide 22 mmol/L (22-30) 06/06/21 05:18 Anion Gap 19 mmol/L 06/06/21 05:18 BUN 13 mg/dL (9-20) 06/06/21 05:18 Creatinine 1.0 mg/dL (0.8-1.3) 06/06/21 05:18 Estimated GFR > 60 ml/min 06/06/21 05:18 BUN/Creatinine Ratio 13 % 06/06/21 05:18 Glucose 94 mg/dL (75-100) 06/06/21 05:18 Lactic Acid 1.90 mmol/L (0.7-2.0) 06/05/21 17:02 Calcium 9.0 mg/dL (8.4-10.2) 06/06/21 05:18 Total Bilirubin 0.50 mg/dL (0.1-1.2) 06/06/21 05:18 AST 36 units/L (5-40) 06/06/21 05:18 ALT 54 units/L (7-56) 06/06/21 05:18 Alkaline Phosphatase 207 units/L (35-129) H 06/06/21 05:18 Total Creatine Kinase 49 units/L (55-170) L 06/11/21 05:12 Troponin T < 0.010 ng/mL (0.00-0.029) 06/05/21 16:37 NT-Pro-B Natriuret Pep 79699 pg/mL (0-900) H 06/05/21 16:37 Total Protein 7.3 g/dL (6.3-8.2) 06/06/21 05:18 Albumin 2.8 g/dL (3.9-5) L 06/06/21 05:18 Albumin/Globulin Ratio 0.6 % 06/06/21 05:18 Lipase 16 units/L (13-60) 06/05/21 16:37 Urine Color Yellow (Yellow) 06/05/21 Unknown Urine Turbidity Clear (Clear) 06/05/21 Unknown Urine pH 5.0 (5.0-7.0) 06/05/21 Unknown Ur Specific [place] 1.025 (1.003-1.030) 06/05/21 Unknown Urine Protein 100 mg/dl mg/dL (Negative) 06/05/21 Unknown Urine Glucose (UA) Negative mg/dL (Negative) 06/05/21 Unknown Urine Ketones Negative mg/dL (Negative) 06/05/21 Unknown Urine Blood 1+ (Negative) 06/05/21 Unknown Urine Nitrite Negative (Negative) 06/05/21 Unknown Ur Reducing Substances Not Reportable 06/05/21 Unknown Urine Bilirubin Negative (Negative) 06/05/21 Unknown Urine Ictotest Not Reportable 06/05/21 Unknown Urine Urobilinogen < 2.0 mg/dL (<2.0) 06/05/21 Unknown Ur Leukocyte Esterase Negative (Negative) 06/05/21 Unknown Urine WBC (Auto) 2.0 /HPF (0.0-6.0) 06/05/21 Unknown Urine RBC (Auto) 2.0 /HPF (0.0-6.0) 06/05/21 Unknown U Epithel Cells (Auto) 3.0 /HPF (0-13.0) 06/05/21 Unknown Urine Mucus Few /HPF 06/05/21 Unknown Urine Opiates Screen Negative 06/05/21 Unknown Urine Methadone Screen Negative 06/05/21 Unknown Ur Barbiturates Screen Negative 06/05/21 Unknown Ur Phencyclidine Scrn Negative 06/05/21 Unknown Ur Amphetamines Screen Negative 06/05/21 Unknown U Benzodiazepines Scrn Negative 06/05/21 Unknown Urine Cocaine Screen Negative 06/05/21 Unknown U Marijuana (THC) Screen Negative 06/05/21 Unknown Drugs of Abuse Note Disclamer 06/05/21 Unknown Luc[place]/IV: Voiding Method Toilet Active Medications - Current Medications Current Medications: Generic Name Dose Route Start Last Admin Trade Name Freq PRN Reason Stop Dose Admin Acetaminophen 650 mg 06/05/21 21:34 Acetaminophen 325 Mg Tab PO Q4H PRN Pain MILD(1-3)/Fever >100.5/GARDUNO Aspirin 81 mg 06/06/21 10:00 06/11/21 09:49 Aspirin Ec 81 Mg Tab PO 81 mg QDAY KAVITHA Administration Atorvastatin Calcium 40 mg 06/06/21 22:00 06/11/21 21:25 Atorvastatin 40 Mg Tab PO 40 mg QHS KAVITHA Administration Carvedilol 6.25 mg 06/06/21 10:00 06/11/21 22:11 Carvedilol 6.25 Mg Tab PO Not Given BID KAVITHA Famotidine 20 mg 06/05/21 22:00 06/11/21 21:25 Famotidine 20 Mg Tab PO 20 mg BID KAVITHA Administration Furosemide 40 mg 06/10/21 10:00 06/11/21 09:50 Furosemide 40 Mg Tab PO 40 mg QDAY KAVITHA Administration Heparin Sodium (Porcine) 5,000 unit 06/05/21 22:00 06/11/21 21:25 Heparin 5,000 Unit/1 Ml Vial SUB-Q 5,000 unit Q12HR KAVITHA Administration Daptomycin 500 mg/ Sodium 100 mls @ 200 mls/hr 06/07/21 17:00 06/11/21 17:26 Chloride IV 06/21/21 17:29 200 mls/hr Q24H KAVITHA Administration Protocol CEFTAROLINE FOSAMIL (NF) 600 50 mls @ 50 mls/30 min 06/07/21 10:00 06/12/21 02:53 mg/ Sodium Chloride IV 06/21/21 18:29 50 mls/30 min Q8H KAVITHA Administration Losartan Potassium 100 mg 06/06/21 10:00 06/11/21 09:50 Losartan 50 Mg Tab PO 100 mg QDAY KAVITHA Administration Morphine Sulfate 2 mg 06/05/21 21:20 Morphine 2 Mg/1 Ml Inj IV Q4H PRN Pain, Moderate (4-6) Ondansetron HCl 4 mg 06/05/21 21:20 Ondansetron 4 Mg/2 Ml Inj IV Q8H PRN Nausea And Vomiting Oxycodone/Acetaminophen 1 tab 06/05/21 21:20 Oxycodone /Acetaminophen 5-325mg Tab PO Q6H PRN Pain, Moderate (4-6) Sodium Chloride 10 ml 06/05/21 22:00 06/11/21 21:26 Sodium Chloride 0.9% 10 Ml Flush Syringe IV 10 ml BID KAVITHA Administration Sodium Chloride 10 ml 06/05/21 21:20 Sodium Chloride 0.9% 10 Ml Flush Syringe IV PRN PRN LINE FLUSH Spironolactone 25 mg 06/06/21 10:00 06/11/21 09:49 Spironolactone 25 Mg Tab PO 25 mg QDAY KAVITHA Administration Ticagrelor 90 mg 06/06/21 10:00 06/11/21 21:26 Ticagrelor 90 Mg Tab PO 90 mg BID KAVITHA Administration Nutrition/Malnutrition Assess - Dietary Evaluation Nutrition/Malnutrition Findings: Nutrition Notes Start: 03/09/22 16:09 Freq: Status: Active Protocol: Document 06/06/21 16:09 LIUDMILA (Rec: 06/06/21 16:39 LIUDMILA [id number]) Nutrition Notes Need for Assessment generated from: MD 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 Labs/Tests 06/06: WNL. Pertinent Medications 06/06: Nutritionally unremarkable. Height 5 ft 9 in Weight 72.53 kg [place] Body Weight (kg) 72.72 BMI 23.6 Intake Prior to Admission Poor Weight change and time frame Pt states having unintentionally loss between 2 and 13 lb recently. Body weight veryfied over the phone with RN (72.53 Kg), instead of 19.27 Kg on the chart. Weight Status Appropriate Subjective/Other Information RD consult for risk of malnutrition and dietary supplementation assessments. Pt's PO intake has been Good ( 100%), according to RN over the phone. Pt is vegetarian, according to RN over the phone. Pt does not require dietary supplementation at the time. Pt has missing teeth, according to Physical Assessment History notes. Pt shows no signs of concern for risk of malnutrition at the time, according to Physical Assessment History notes. Percent of energy/protein needs met: Prescribed Cardiac Diet provides for energy/protein needs (2,230 Kcal/85 g) during LOS. Burn Absent Trauma Absent GI Symptoms None Food Allergy No Skin Integrity/Comment Assessment WNL. Current % PO Good (75-100%) Minimum of two criteria No #1 Nutrition Diagnosis No nutrition diagnosis at this time Is patient on ventilator? No Is Patient Ambulatory and/or Out of Bed Yes REE-([place]-St. Jeor-ambulatory/OOB) [ [id number] [id number]] Calculation Used for Recommendations [place]-St Jeor Additional Notes Protein: 0.8-1 g/Kg ABW; 58-73 g/day. Fluids: 1 ml/Kcal, or as per MD. Nutrition Intervention Follow-Up By: 06/13/21 Additional Comments Continue monitoring food tolerance, %PO intake of meals , and BM.
[2021-06-12 11:02] LABS: BUN/Creatinine Ratio 16; Blood Urea Nitrogen 18 mg/dL (9-20); Calcium 9.3 mg/dL (8.4-10.2); Hemolysis Index 3
--- NOTE | 2021-06-12 11:10 | Progress Note ---
Assessment and Plan - Patient Problems (1) Acute exacerbation of CHF (congestive heart failure) Current Visit: Yes Status: Acute Qualifiers: Heart failure type: combined systolic and diastolic Qualified Code(s): I50.43 - Acute on chronic combined systolic (congestive) and diastolic (congestive) heart failure Plan to address problem: Strict I's/O, monitor urine output every shift, daily weight, afterload reduction, blood pressure control, supplemental oxygen, risk factor reduction. Cardiology team consulted. (2) Endocarditis Current Visit: Yes Status: Acute Qualifiers: Chronicity: subacute Plan to address problem: Continue IV antibiotic therapy. Supportive care. Outpatient infectious disease follow-up. (3) ICD (implantable cardioverter-defibrillator) infection Current Visit: Yes Status: Acute Qualifiers: Encounter type: initial encounter Qualified Code(s): T82.7XXA - Infection and inflammatory reaction due to other cardiac and vascular devices, implants and grafts, initial encounter Plan to address problem: Continue full course antibiotic therapy. Patient antibiotic regimen prescribed by Dr. Berry/Summer at [facility]. Patient discharged with the aforementioned antibiotic regimen. Patient lost to outpatient follow-up. Continue medical management. (4) DVT prophylaxis Current Visit: Yes Status: Acute Plan to address problem: SCD to bilateral lower extremities while in bed (5) Advance care planning Current Visit: Yes Status: Acute Plan to address problem: Disease education done, care plan discussed, diagnoses discussed, prognosis discussed, patient is full code, +30 minutes. (6) Noncompliance Current Visit: Yes Status: Acute Plan to address problem: Patient counseled: Patient did not follow-up with infectious disease specialist as instructed. Patient not forthcoming with information regarding follow-up. Discharge planning for outpatient infectious disease follow-up. Patient was seen and evaluated at [place] on hospital with outpatient regimen prescribed by Dr. Berry/Summer in progress. 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 Pt lost to outpatient f/u. No reported nursing events. Pt denies fever. Case management consulted. Pt followed by ID specialists Dr. Berry/Summer. D/C planning for outpatient management as per Dr Berry/Summer. Hospitalist Physical - Constitutional Vitals: Temp Pulse Resp BP Pulse Ox 97.9 F 65 16 87/54 96 06/12/21 08:56 06/12/21 08:56 06/12/21 08:56 06/12/21 08:56 06/12/21 08:56 General appearance: Present: no acute distress, well-nourished - EENT Eyes: Present: PERRL, EOM intact ENT: hearing intact - Neck Neck: Present: supple - Respiratory Respiratory effort: normal Respiratory: bilateral: CTA - Cardiovascular Rhythm: regular - Extremities Extremities: no ischemia Peripheral Pulses: within normal limits - Abdominal General gastrointestinal: soft, non-tender, non-distended - Integumentary Integumentary: Present: clear, dry - Psychiatric Psychiatric: appropriate mood/affect, cooperative - Neurologic Neurologic: CNII-XII intact HEART Score - HEART Score EKG: Non-specific Age: 45-65 Risk factors: > 3 risk factors or hx of atherosclerotic disease Troponin: Troponin T < 0.010 ng/mL (0.00-0.029) 06/05/21 16:37 Troponin: < normal limit Results - Labs CBC & Chem 7: 06/06/21 05:18 06/12/21 10:16 Labs: Laboratory Last Values WBC 6.6 K/mm3 (4.5-11.0) 06/06/21 05:18 RBC 2.52 M/mm3 (3.65-5.03) L 06/06/21 05:18 Hgb 7.6 gm/dl (11.8-15.2) L 06/06/21 05:18 Hct 22.9 % (35.5-45.6) L 06/06/21 05:18 MCV 91 fl (84-94) 06/06/21 05:18 MCH 30 pg (28-32) 06/06/21 05:18 MCHC 33 % (32-34) 06/06/21 05:18 RDW 15.4 % (13.2-15.2) H 06/06/21 05:18 Plt Count 264 K/mm3 (140-440) 06/06/21 05:18 Lymph % (Auto) 27.2 % (13.4-35.0) 06/06/21 05:18 [place] % (Auto) 9.2 % (0.0-7.3) H 06/06/21 05:18 Eos % (Auto) 3.2 % (0.0-4.3) 06/06/21 05:18 Baso % (Auto) 1.9 % (0.0-1.8) H 06/06/21 05:18 Lymph # (Auto) 1.8 K/mm3 (1.2-5.4) 06/06/21 05:18 [place] # (Auto) 0.6 K/mm3 (0.0-0.8) 06/06/21 05:18 Eos # (Auto) 0.2 K/mm3 (0.0-0.4) 06/06/21 05:18 Baso # (Auto) 0.1 K/mm3 (0.0-0.1) 06/06/21 05:18 Seg Neutrophils % 58.5 % (40.0-70.0) 06/06/21 05:18 Seg Neutrophils # 3.9 K/mm3 (1.8-7.7) 06/06/21 05:18 PT 15.7 Sec. (12.2-14.9) H 06/05/21 16:37 INR 1.12 (0.87-1.13) 06/05/21 16:37 Sodium 136 mmol/L (137-145) L 06/12/21 10:16 Potassium 3.8 mmol/L (3.6-5.0) 06/12/21 10:16 Chloride 100.1 mmol/L (98-107) 06/12/21 10:16 Carbon Dioxide 22 mmol/L (22-30) 06/12/21 10:16 Anion Gap 18 mmol/L 06/12/21 10:16 BUN 18 mg/dL (9-20) 06/12/21 10:16 Creatinine 1.1 mg/dL (0.8-1.3) 06/12/21 10:16 Estimated GFR > 60 ml/min 06/12/21 10:16 BUN/Creatinine Ratio 16 % 06/12/21 10:16 Glucose 172 mg/dL (75-100) H 06/12/21 10:16 Lactic Acid 1.90 mmol/L (0.7-2.0) 06/05/21 17:02 Calcium 9.3 mg/dL (8.4-10.2) 06/12/21 10:16 Total Bilirubin 0.50 mg/dL (0.1-1.2) 06/06/21 05:18 AST 36 units/L (5-40) 06/06/21 05:18 ALT 54 units/L (7-56) 06/06/21 05:18 Alkaline Phosphatase 207 units/L (35-129) H 06/06/21 05:18 Total Creatine Kinase 49 units/L (55-170) L 06/11/21 05:12 Troponin T < 0.010 ng/mL (0.00-0.029) 06/05/21 16:37 NT-Pro-B Natriuret Pep 41733 pg/mL (0-900) H 06/05/21 16:37 Total Protein 7.3 g/dL (6.3-8.2) 06/06/21 05:18 Albumin 2.8 g/dL (3.9-5) L 06/06/21 05:18 Albumin/Globulin Ratio 0.6 % 06/06/21 05:18 Lipase 16 units/L (13-60) 06/05/21 16:37 Urine Color Yellow (Yellow) 06/05/21 Unknown Urine Turbidity Clear (Clear) 06/05/21 Unknown Urine pH 5.0 (5.0-7.0) 06/05/21 Unknown Ur Specific [place] 1.025 (1.003-1.030) 06/05/21 Unknown Urine Protein 100 mg/dl mg/dL (Negative) 06/05/21 Unknown Urine Glucose (UA) Negative mg/dL (Negative) 06/05/21 Unknown Urine Ketones Negative mg/dL (Negative) 06/05/21 Unknown Urine Blood 1+ (Negative) 06/05/21 Unknown Urine Nitrite Negative (Negative) 06/05/21 Unknown Ur Reducing Substances Not Reportable 06/05/21 Unknown Urine Bilirubin Negative (Negative) 06/05/21 Unknown Urine Ictotest Not Reportable 06/05/21 Unknown Urine Urobilinogen < 2.0 mg/dL (<2.0) 06/05/21 Unknown Ur Leukocyte Esterase Negative (Negative) 06/05/21 Unknown Urine WBC (Auto) 2.0 /HPF (0.0-6.0) 06/05/21 Unknown Urine RBC (Auto) 2.0 /HPF (0.0-6.0) 06/05/21 Unknown U Epithel Cells (Auto) 3.0 /HPF (0-13.0) 06/05/21 Unknown Urine Mucus Few /HPF 06/05/21 Unknown Urine Opiates Screen Negative 06/05/21 Unknown Urine Methadone Screen Negative 06/05/21 Unknown Ur Barbiturates Screen Negative 06/05/21 Unknown Ur Phencyclidine Scrn Negative 06/05/21 Unknown Ur Amphetamines Screen Negative 06/05/21 Unknown U Benzodiazepines Scrn Negative 06/05/21 Unknown Urine Cocaine Screen Negative 06/05/21 Unknown U Marijuana (THC) Screen Negative 06/05/21 Unknown Drugs of Abuse Note Disclamer 06/05/21 Unknown Lucero/IV: Voiding Method Toilet Active Medications - Current Medications Current Medications: Generic Name Dose Route Start Last Admin Trade Name Freq PRN Reason Stop Dose Admin Acetaminophen 650 mg 06/05/21 21:34 Acetaminophen 325 Mg Tab PO Q4H PRN Pain MILD(1-3)/Fever >100.5/GARDUNO Aspirin 81 mg 06/06/21 10:00 06/12/21 10:34 Aspirin Ec 81 Mg Tab PO 81 mg QDAY KAVITHA Administration Atorvastatin Calcium 40 mg 06/06/21 22:00 06/11/21 21:25 Atorvastatin 40 Mg Tab PO 40 mg QHS KAVITHA Administration Carvedilol 6.25 mg 06/06/21 10:00 06/12/21 10:35 Carvedilol 6.25 Mg Tab PO 6.25 mg BID KAVITHA Administration Famotidine 20 mg 06/05/21 22:00 06/12/21 10:34 Famotidine 20 Mg Tab PO 20 mg BID KAVITHA Administration Furosemide 40 mg 06/10/21 10:00 06/12/21 10:34 Furosemide 40 Mg Tab PO 40 mg QDAY KAVITHA Administration Heparin Sodium (Porcine) 5,000 unit 06/05/21 22:00 06/12/21 10:35 Heparin 5,000 Unit/1 Ml Vial SUB-Q 5,000 unit Q12HR KAVITHA Administration Daptomycin 500 mg/ Sodium 100 mls @ 200 mls/hr 06/07/21 17:00 06/11/21 17:26 Chloride IV 06/21/21 17:29 200 mls/hr Q24H KAVITHA Administration Protocol CEFTAROLINE FOSAMIL (NF) 600 50 mls @ 50 mls/30 min 06/07/21 10:00 06/12/21 02:53 mg/ Sodium Chloride IV 06/21/21 18:29 50 mls/30 min Q8H KAVITHA Administration Losartan Potassium 100 mg 06/06/21 10:00 06/12/21 10:35 Losartan 50 Mg Tab PO 100 mg QDAY KAVITHA Administration Morphine Sulfate 2 mg 06/05/21 21:20 Morphine 2 Mg/1 Ml Inj IV Q4H PRN Pain, Moderate (4-6) Ondansetron HCl 4 mg 06/05/21 21:20 Ondansetron 4 Mg/2 Ml Inj IV Q8H PRN Nausea And Vomiting Oxycodone/Acetaminophen 1 tab 06/05/21 21:20 Oxycodone /Acetaminophen 5-325mg Tab PO Q6H PRN Pain, Moderate (4-6) Sodium Chloride 10 ml 06/05/21 22:00 06/12/21 10:36 Sodium Chloride 0.9% 10 Ml Flush Syringe IV 10 ml BID KAVITHA Administration Sodium Chloride 10 ml 06/05/21 21:20 Sodium Chloride 0.9% 10 Ml Flush Syringe IV PRN PRN LINE FLUSH Spironolactone 25 mg 06/06/21 10:00 06/12/21 10:34 Spironolactone 25 Mg Tab PO 25 mg QDAY KAVITHA Administration Ticagrelor 90 mg 06/06/21 10:00 06/12/21 10:34 Ticagrelor 90 Mg Tab PO 90 mg BID KAVITHA Administration Nutrition/Malnutrition Assess - Dietary Evaluation Nutrition/Malnutrition Findings: Nutrition Notes Start: 06/06/21 16:09 Freq: Status: Active Protocol: Document 06/06/21 16:09 LIUDMILA (Rec: 06/06/21 16:39 LIUDMILA [id number]) Nutrition Notes Need for Assessment generated from: MD Order,processing analyst,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 Labs/Tests 06/06: WNL. Pertinent Medications 06/06: Nutritionally unremarkable. Height 5 ft 9 in Weight 72.53 kg [place] Body Weight (kg) 72.72 BMI 23.6 Intake Prior to Admission Poor Weight change and time frame Pt states having unintentionally loss between 2 and 13 lb recently. Body weight veryfied over the phone with RN (72.53 Kg), instead of 19.27 Kg on the chart. Weight Status Appropriate Subjective/Other Information RD consult for risk of malnutrition and dietary supplementation assessments. Pt's PO intake has been Good ( 100%), according to RN over the phone. Pt is vegetarian, according to RN over the phone. Pt does not require dietary supplementation at the time. Pt has missing teeth, according to Physical Assessment History notes. Pt shows no signs of concern for risk of malnutrition at the time, according to Physical Assessment History notes. Percent of energy/protein needs met: Prescribed Cardiac Diet provides for energy/protein needs (2,230 Kcal/85 g) during LOS. Burn Absent Trauma Absent GI Symptoms None Food Allergy No Skin Integrity/Comment Assessment WNL. Current % PO Good (75-100%) Minimum of two criteria No #1 Nutrition Diagnosis No nutrition diagnosis at this time Is patient on ventilator? No Is Patient Ambulatory and/or Out of Bed Yes [facility] [ 1983.384 NUTR.MSJOOB] [facility] Additional Notes Protein: 0.8-1 g/Kg ABW; 58-73 g/day. Fluids: 1 ml/Kcal, or as per MD. Nutrition Intervention Follow-Up By: 06/13/21 Additional Comments Continue monitoring food tolerance, %PO intake of meals , and BM.
--- NOTE | 2021-06-12 13:07 | Progress Note ---
Assessment and Plan - Patient Problems (1) CHF (congestive heart failure) Current Visit: Yes Status: Acute (2) Coronary artery disease Current Visit: Yes Status: Acute Qualifiers: Coronary Disease-Associated Artery/Lesion type: [place] artery [place] vs. transplanted heart: [place] heart (3) Dilated cardiomyopathy Current Visit: Yes Status: Acute Subjective Date of service: 06/12/21 Principal diagnosis: 06/06/21 Interval history: SLEEPING Objective Vital Signs Temp Pulse Resp BP Pulse Ox 06/12/21 11:53 98.6 F 87 18 117/58 97 06/12/21 11:47 87 18 97 06/12/21 11:42 97.5 F L 57 L 18 98/69 88 06/12/21 10:00 99 06/12/21 08:56 97.9 F 65 16 87/54 96 06/12/21 04:43 98.4 F 78 18 98/64 100 06/11/21 23:55 99.0 F 90 18 95/58 97 06/11/21 22:11 92/62 06/11/21 22:00 98 06/11/21 20:21 98.3 F 83 18 92/62 98 06/11/21 16:21 98.3 F 75 16 77/48 98 - Physical Examination General: No Apparent Distress HEENT: Positive: PERRL Neck: Positive: neck supple, JVD/HJR Cardiac: Positive: Reg Rate and Rhythm Lungs: Positive: clear to auscultation Neuro: Positive: Grossly Intact Abdomen: Positive: Soft Skin: Positive: Clear Extremities: Present: Other (NO EDEMA). Absent: edema - Labs and Meds Comprehensive Metabolic Panel 06/12/21 Range/Units 10:16 Sodium 136 L (137-145) mmol/L Potassium 3.8 (3.6-5.0) mmol/L Chloride 100.1 (98-107) mmol/L Carbon Dioxide 22 (22-30) mmol/L BUN 18 (9-20) mg/dL Creatinine 1.1 (0.8-1.3) mg/dL Glucose 172 H (75-100) mg/dL Calcium 9.3 (8.4-10.2) mg/dL - Imaging and Cardiology EKG: report reviewed (Sinus tachycardia no acute ST-T wave changes)
[2021-06-13] MEDS: CEFTAROLINE FOSAMIL IV SCH ×3 (03:00→17:50)
[2021-06-13] MEDS: SODIUM CHLORIDE 0.9% IV SCH ×3 (03:00→17:50)
[2021-06-13] MEDS: FUROSEMIDE 40 MG TAB PO SCH (09:23)
[2021-06-13] MEDS: ASPIRIN EC 81 MG TAB PO SCH (09:23)
[2021-06-13] MEDS: FAMOTIDINE 20 MG TAB PO SCH ×2 (09:23→21:20)
[2021-06-13] MEDS: carvediloL 6.25 MG TAB PO SCH ×3 (09:23→21:20)
[2021-06-13] MEDS: TICAGRELOR 90 MG TAB PO SCH ×2 (09:23→21:20)
[2021-06-13] MEDS: HEPARIN 5,000 UNIT/1 ML VIAL SUB-Q SCH ×2 (09:24→21:20)
--- NOTE | 2021-06-13 09:39 | Progress Note ---
Assessment and Plan Assessment and plan: Severe ischemic dilated cardiomyopathy Nonsustained ventricular tachycardia AICD infection Tricuspid endocarditis CAD Chronic anemia Dilated cardiomyopathy 06/12/2021. We will follow-up new blood cultures. ID evaluated the patient and reinitiated daptomycin 6 mg/kg, ceftaroline every 8 hours due to endocarditis. Case management consulted to expected end date of 06/21/2021. ID reports that the patient should follow-up with Dr. Bui/Kristi as an outpatient. The patient with 5 runs of V. tach. I suspect patient will need LifeVest at discharge. We will defer to cardiology. 06/13/2021. Continue IV antibiotics per ID recommendations. Patient exhibiting hypotension. We will decrease Coreg and losartan by half dosages per cardiology recommendations. Consider decreasing Aldactone and Lasix as well. Patient needs a LifeVest at discharge. I discussed ordering LifeVest with case sree llamas. Patient with no new runs of V. tach History Interval history: No new issues overnight Hospitalist Physical - Constitutional Vitals: Temp Pulse Resp BP Pulse Ox 98.1 F 95 H 18 95/61 96 06/13/21 08:18 06/13/21 08:18 06/13/21 08:18 06/13/21 08:18 06/13/21 08:18 General appearance: Present: no acute distress, well-nourished - EENT Eyes: Present: PERRL, EOM intact ENT: hearing intact, clear oral mucosa, dentition normal - Neck Neck: Present: supple, normal ROM - Respiratory Respiratory effort: normal Respiratory: bilateral: CTA - Cardiovascular Rhythm: regular Heart Sounds: Present: S1 & S2. Absent: gallop, rub - Extremities Extremities: no ischemia, No edema, Full ROM - Abdominal General gastrointestinal: soft, non-tender, non-distended, normal bowel sounds - Integumentary Integumentary: Present: clear, warm, dry - Neurologic Neurologic: CNII-XII intact, moves all extremities HEART Score - HEART Score EKG: Non-specific Age: 45-65 Risk factors: > 3 risk factors or hx of atherosclerotic disease Troponin: Troponin T < 0.010 ng/mL (0.00-0.029) 06/05/21 16:37 Troponin: < normal limit Results - Labs CBC & Chem 7: 06/06/21 05:18 06/12/21 10:16 Labs: Laboratory Last Values WBC 6.6 K/mm3 (4.5-11.0) 06/06/21 05:18 RBC 2.52 M/mm3 (3.65-5.03) L 06/06/21 05:18 Hgb 7.6 gm/dl (11.8-15.2) L 06/06/21 05:18 Hct 22.9 % (35.5-45.6) L 06/06/21 05:18 MCV 91 fl (84-94) 06/06/21 05:18 MCH 30 pg (28-32) 06/06/21 05:18 MCHC 33 % (32-34) 06/06/21 05:18 RDW 15.4 % (13.2-15.2) H 06/06/21 05:18 Plt Count 264 K/mm3 (140-440) 06/06/21 05:18 Lymph % (Auto) 27.2 % (13.4-35.0) 06/06/21 05:18 [place] % (Auto) 9.2 % (0.0-7.3) H 06/06/21 05:18 Eos % (Auto) 3.2 % (0.0-4.3) 06/06/21 05:18 Baso % (Auto) 1.9 % (0.0-1.8) H 06/06/21 05:18 Lymph # (Auto) 1.8 K/mm3 (1.2-5.4) 06/06/21 05:18 [place] # (Auto) 0.6 K/mm3 (0.0-0.8) 06/06/21 05:18 Eos # (Auto) 0.2 K/mm3 (0.0-0.4) 06/06/21 05:18 Baso # (Auto) 0.1 K/mm3 (0.0-0.1) 06/06/21 05:18 Seg Neutrophils % 58.5 % (40.0-70.0) 06/06/21 05:18 Seg Neutrophils # 3.9 K/mm3 (1.8-7.7) 06/06/21 05:18 PT 15.7 Sec. (12.2-14.9) H 06/05/21 16:37 INR 1.12 (0.87-1.13) 06/05/21 16:37 Sodium 136 mmol/L (137-145) L 06/12/21 10:16 Potassium 3.8 mmol/L (3.6-5.0) 06/12/21 10:16 Chloride 100.1 mmol/L (98-107) 06/12/21 10:16 Carbon Dioxide 22 mmol/L (22-30) 06/12/21 10:16 Anion Gap 18 mmol/L 06/12/21 10:16 BUN 18 mg/dL (9-20) 06/12/21 10:16 Creatinine 1.1 mg/dL (0.8-1.3) 06/12/21 10:16 Estimated GFR > 60 ml/min 06/12/21 10:16 BUN/Creatinine Ratio 16 % 06/12/21 10:16 Glucose 172 mg/dL (75-100) H 06/12/21 10:16 Lactic Acid 1.90 mmol/L (0.7-2.0) 06/05/21 17:02 Calcium 9.3 mg/dL (8.4-10.2) 06/12/21 10:16 Total Bilirubin 0.50 mg/dL (0.1-1.2) 06/06/21 05:18 AST 36 units/L (5-40) 06/06/21 05:18 ALT 54 units/L (7-56) 06/06/21 05:18 Alkaline Phosphatase 207 units/L (35-129) H 06/06/21 05:18 Total Creatine Kinase 49 units/L (55-170) L 06/11/21 05:12 Troponin T < 0.010 ng/mL (0.00-0.029) 06/05/21 16:37 NT-Pro-B Natriuret Pep 64519 pg/mL (0-900) H 06/05/21 16:37 Total Protein 7.3 g/dL (6.3-8.2) 06/06/21 05:18 Albumin 2.8 g/dL (3.9-5) L 06/06/21 05:18 Albumin/Globulin Ratio 0.6 % 06/06/21 05:18 Lipase 16 units/L (13-60) 06/05/21 16:37 Urine Color Yellow (Yellow) 06/05/21 Unknown Urine Turbidity Clear (Clear) 06/05/21 Unknown Urine pH 5.0 (5.0-7.0) 06/05/21 Unknown Ur Specific [place] 1.025 (1.003-1.030) 06/05/21 Unknown Urine Protein 100 mg/dl mg/dL (Negative) 06/05/21 Unknown Urine Glucose (UA) Negative mg/dL (Negative) 06/05/21 Unknown Urine Ketones Negative mg/dL (Negative) 06/05/21 Unknown Urine Blood 1+ (Negative) 06/05/21 Unknown Urine Nitrite Negative (Negative) 06/05/21 Unknown Ur Reducing Substances Not Reportable 06/05/21 Unknown Urine Bilirubin Negative (Negative) 06/05/21 Unknown Urine Ictotest Not Reportable 06/05/21 Unknown Urine Urobilinogen < 2.0 mg/dL (<2.0) 06/05/21 Unknown Ur Leukocyte Esterase Negative (Negative) 06/05/21 Unknown Urine WBC (Auto) 2.0 /HPF (0.0-6.0) 06/05/21 Unknown Urine RBC (Auto) 2.0 /HPF (0.0-6.0) 06/05/21 Unknown U Epithel Cells (Auto) 3.0 /HPF (0-13.0) 06/05/21 Unknown Urine Mucus Few /HPF 06/05/21 Unknown Urine Opiates Screen Negative 06/05/21 Unknown Urine Methadone Screen Negative 06/05/21 Unknown Ur Barbiturates Screen Negative 06/05/21 Unknown Ur Phencyclidine Scrn Negative 06/05/21 Unknown Ur Amphetamines Screen Negative 06/05/21 Unknown U Benzodiazepines Scrn Negative 06/05/21 Unknown Urine Cocaine Screen Negative 06/05/21 Unknown U Marijuana (THC) Screen Negative 06/05/21 Unknown Drugs of Abuse Note Disclamer 06/05/21 Unknown Microbiology: Microbiology 06/12/21 12:01 Peripheral/Venous Blood Culture - Preliminary Culture in Progress 06/12/21 12:01 Peripheral/Venous Blood Culture - Preliminary Culture in Progress Lucero/IV: Voiding Method Toilet Active Medications - Current Medications Current Medications: Generic Name Dose Route Start Last Admin Trade Name Freq PRN Reason Stop Dose Admin Acetaminophen 650 mg 06/05/21 21:34 Acetaminophen 325 Mg Tab PO Q4H PRN Pain MILD(1-3)/Fever >100.5/GARDUNO Aspirin 81 mg 06/06/21 10:00 06/13/21 09:23 Aspirin Ec 81 Mg Tab PO 81 mg QDAY KAVITHA Administration Atorvastatin Calcium 40 mg 06/06/21 22:00 06/12/21 21:01 Atorvastatin 40 Mg Tab PO 40 mg QHS KAVITHA Administration Carvedilol 6.25 mg 06/06/21 10:00 06/13/21 09:23 Carvedilol 6.25 Mg Tab PO 6.25 mg BID KAVITHA Administration Famotidine 20 mg 06/05/21 22:00 06/13/21 09:23 Famotidine 20 Mg Tab PO 20 mg BID KAVITHA Administration Furosemide 40 mg 06/10/21 10:00 06/13/21 09:23 Furosemide 40 Mg Tab PO 40 mg QDAY KAVITHA Administration Heparin Sodium (Porcine) 5,000 unit 06/05/21 22:00 06/13/21 09:24 Heparin 5,000 Unit/1 Ml Vial SUB-Q 5,000 unit Q12HR KAVITHA Administration Daptomycin 500 mg/ Sodium 100 mls @ 200 mls/hr 06/07/21 17:00 06/12/21 16:00 Chloride IV 06/21/21 17:29 200 mls/hr Q24H KAVITHA Administration Protocol CEFTAROLINE FOSAMIL (NF) 600 50 mls @ 50 mls/30 min 06/07/21 10:00 06/13/21 09:21 mg/ Sodium Chloride IV 06/21/21 18:29 50 mls/30 min Q8H KAVITHA Administration Losartan Potassium 100 mg 06/06/21 10:00 06/12/21 10:35 Losartan 50 Mg Tab PO 100 mg QDAY KAVITHA Administration Morphine Sulfate 2 mg 06/05/21 21:20 Morphine 2 Mg/1 Ml Inj IV Q4H PRN Pain, Moderate (4-6) Ondansetron HCl 4 mg 06/05/21 21:20 Ondansetron 4 Mg/2 Ml Inj IV Q8H PRN Nausea And Vomiting Oxycodone/Acetaminophen 1 tab 06/05/21 21:20 Oxycodone /Acetaminophen 5-325mg Tab PO Q6H PRN Pain, Moderate (4-6) Sodium Chloride 10 ml 06/05/21 22:00 06/13/21 09:24 Sodium Chloride 0.9% 10 Ml Flush Syringe IV 10 ml BID KAVITHA Administration Sodium Chloride 10 ml 06/05/21 21:20 Sodium Chloride 0.9% 10 Ml Flush Syringe IV PRN PRN LINE FLUSH Spironolactone 25 mg 06/06/21 10:00 06/12/21 10:34 Spironolactone 25 Mg Tab PO 25 mg QDAY KAVITHA Administration Ticagrelor 90 mg 06/06/21 10:00 06/13/21 09:23 Ticagrelor 90 Mg Tab PO 90 mg BID KAVITHA Administration Nutrition/Malnutrition Assess - Dietary Evaluation Nutrition/Malnutrition Findings: Nutrition Notes Start: 06/06/21 16:09 Freq: Status: Active Protocol: Document 06/06/21 16:09 LIUDMILA (Rec: 06/06/21 16:39 LIUDMILA [id number]) Nutrition Notes Need for Assessment generated from: MD Order,ecological technical officer,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 Labs/Tests 06/06: WNL. Pertinent Medications 06/06: Nutritionally unremarkable. Height 5 ft 9 in Weight 72.53 kg [place] Body Weight (kg) 72.72 BMI 23.6 Intake Prior to Admission Poor Weight change and time frame Pt states having unintentionally loss between 2 and 13 lb recently. Body weight veryfied over the phone with RN (72.53 Kg), instead of 19.27 Kg on the chart. Weight Status Appropriate Subjective/Other Information RD consult for risk of malnutrition and dietary supplementation assessments. Pt's PO intake has been Good ( 100%), according to RN over the phone. Pt is vegetarian, according to RN over the phone. Pt does not require dietary supplementation at the time. Pt has missing teeth, according to Physical Assessment History notes. Pt shows no signs of concern for risk of malnutrition at the time, according to Physical Assessment History notes. Percent of energy/protein needs met: Prescribed Cardiac Diet provides for energy/protein needs (2,230 Kcal/85 g) during LOS. Burn Absent Trauma Absent GI Symptoms None Food Allergy No Skin Integrity/Comment Assessment WNL. Current % PO Good (75-100%) Minimum of two criteria No #1 Nutrition Diagnosis No nutrition diagnosis at this time Is patient on ventilator? No Is Patient Ambulatory and/or Out of Bed Yes [facility] [ 1983.384 NUTR.MSJOOB] Calculation [facility] Additional Notes Protein: 0.8-1 g/Kg ABW; 58-73 g/day. Fluids: 1 ml/Kcal, or as per MD. Nutrition Intervention Follow-Up By: 06/13/21 Additional Comments Continue monitoring food tolerance, %PO intake of meals , and BM.
[2021-06-13] MEDS: LOSARTAN 50 MG TAB PO SCH (12:10)
[2021-06-13] MEDS: SPIRONOLACTONE 25 MG TAB PO SCH (12:10)
--- NOTE | 2021-06-13 22:22 | Progress Note ---
Assessment and Plan - Patient Problems (1) CHF (congestive heart failure) Current Visit: Yes Status: Chronic Plan to address problem: - Reviewed ECHO in this admission; LVEF 15-20% - No change in management: c/w Diuretic, coreg, ARB; Continue to optimize GDMT for HFrEF; c/w regimen for CAD. - Keep Mg>2 and K>4 (2) ICD (implantable cardioverter-defibrillator) infection Current Visit: Yes Status: Acute Qualifiers: Encounter type: initial encounter Qualified Code(s): T82.7XXA - Infection and inflammatory reaction due to other cardiac and vascular devices, implants and grafts, initial encounter Plan to address problem: - s/p 7-day IV Abx - ID consulted - LifeVest upon discharge. Contact LifeVest Rep today and patient has been authorized Subjective Date of service: 06/13/21 Principal diagnosis: 06/06/21 Interval history: NO overnight cardiac events; Patient stated that he felt fine. No fever or cp or palpitation. Objective Vital Signs Temp Pulse Resp BP Pulse Ox 06/13/21 21:35 99 06/13/21 19:46 99.0 F 77 16 101/66 98 06/13/21 16:26 98.1 F 82 18 100/63 98 06/13/21 13:00 78 06/13/21 11:34 78 98/66 100 06/13/21 10:00 99 06/13/21 08:18 98.1 F 95 H 18 95/61 96 06/13/21 04:57 98.1 F 90 18 95/61 98 - Physical Examination General: No Apparent Distress HEENT: Positive: PERRL Neck: Positive: neck supple, JVD/HJR Neuro: Positive: Grossly Intact Abdomen: Positive: Soft Skin: Positive: Clear Extremities: Present: Other (NO EDEMA). Absent: edema - Imaging and Cardiology EKG: report reviewed (Sinus tachycardia no acute ST-T wave changes)
[2021-06-14] MEDS: CEFTAROLINE FOSAMIL IV SCH ×3 (02:28→18:39)
[2021-06-14] MEDS: SODIUM CHLORIDE 0.9% IV SCH ×3 (02:28→18:39)
--- NOTE | 2021-06-14 09:23 | Discharge Summary ---
Providers - Providers Date of Admission: 06/05/21 21:24 Date of discharge: 06/14/21 Attending physician: LAMBERT MEJIA 06/05/21 21:20 Consult to Physician [CONS] Routine Comment: Consulting Provider: LICHA CHUA Physician Instructions: Reason For Exam: CHF exacerbation 06/06/21 02:16 Consult to Dietitian/Nutrition [CONS] Routine Physician Instructions: Reason For Exam: Reason for Consult: Malnutrition 06/06/21 09:25 Consult to Physician [CONS] Routine Comment: Consulting Provider: OVI ESTRADA Physician Instructions: Reason For Exam: ICD infection/explanted 06/08/21 10:27 Consult to Case Management [CONS] Routine Services Needed at Discharge: Home Health Services Notified:: cm notified Additional Physician Instructions: Marek Estrada MD [facility] ([facility]) M: [phone] O: [phone] F: [phone] Outpatient parenteral antibiotic therapy orders Diagnosis: MRSA endocarditis Antibiotic administration: Daptomycin 500 mg every 24 hours, ceftaroline 600 mg every 8 hours until 06/21/2021 Line: PICC Lab monitoring: CBC with differential, BUN, creatinine, LFTs, CPK once per week preferably on Friday or Friday Vancomycin: Check creatinine and vancomycin trough every Friday and , fax results to [phone] For critical labs, call office: [phone] Marek Estrada Primary care physician: RUBBER MOLD MAKER Hospitalization Reason for admission: sepsis Condition: Stable Hospital course: 61-year-old man past medical history CAD, ischemic cardiomyopathy presented to hospital complaining of shortness of breath. He reported having an ICD placed 03/29/2021, and consistently presented to [facility] on 04/25/2021 with hypotension and syncope. The patient was found to be septic at that time of MRSA bacteremia. He also had drainage from his AICD placement prior to admission. He was found to have vegetation on ICD lead on HARINDER on 131, which was extracted on 05/03/2021. His blood cultures remain persistently positive until 05/08/2021. A repeat HARINDER showed tricuspid valve vegetation. He was planned to have antibiotics with daptomycin and ceftaroline until 06/21/2021, 6 weeks post negative blood cultures. Much of the history is obtained from the chart as he is a poor historian. He was recently discharged from [facility] [place] on 05/25/2021, however he notes only completing 7 days of antibiotics, and has been without it for a few days now. The patient reportedly had dyspnea that persisted since his discharge. The patient presented to our facility and was admitted with diagnosis of acute hypoxic respiratory failure, severe ischemic dilated cardiomyopathy, AICD infection, tricuspid endocarditis, coronary artery disease, chronic anemia. The patient was seen by ID in consultation who recommended checking new blood cultures. Also recommendations for reinitiation of daptomycin and ceftaroline. Case management was consulted for IV antibiotics with expected end date of 06/21/2021. ID also recommended that the patient follow-up with Dr. Bui/Kristi as an outpatient. Other complications during the hospital stay included nonsustained ventricular tachycardia. Therefore, cardiology recommended arrangements be made for LifeVest at discharge. Case management to arrange for LifeVest at discharge today. Dedicated discharge time 35 minutes Disposition: 30 STILL A PATIENT Final Discharge Diagnosis (Prints w/discharge instructions): cute hypoxic respiratory failure, severe ischemic dilated cardiomyopathy, AICD infection, tricuspid endocarditis, coronary artery disease, chronic anemia and nonsustained ventricular tachycardia requiring LifeVest. Core Measure Documentation - Palliative Care Palliative Care/ Comfort Measures: Not Applicable - Core Measures Any of the following diagnoses?: none Exam - Constitutional Vitals: Temp Pulse Resp BP Pulse Ox 98.7 F 90 18 87/57 97 06/14/21 07:44 06/14/21 07:44 06/14/21 07:44 06/14/21 07:44 06/14/21 07:44 General appearance: Present: no acute distress, well-nourished - EENT Eyes: Present: PERRL ENT: hearing intact, clear oral mucosa - Neck Neck: Present: supple, normal ROM - Respiratory Respiratory effort: normal Respiratory: bilateral: CTA - Cardiovascular Heart Sounds: Present: S1 & S2. Absent: rub, click - Extremities Extremities: pulses symmetrical, No edema Peripheral Pulses: within normal limits - Abdominal General gastrointestinal: Present: soft, non-tender, non-distended, normal bowel sounds Male genitourinary: Present: normal - Integumentary Integumentary: Present: clear, warm, dry - Musculoskeletal Musculoskeletal: gait normal, strength equal bilaterally - Psychiatric Psychiatric: appropriate mood/affect, intact judgment & insight - Neurologic Neurologic: CNII-XII intact, moves all extremities Plan Activity: advance as tolerated Weight Bearing Status: Weight Bear as Tolerated Diet: regular Durable Medical Equipment Needed Upon Discharge: other (LifeVest) Follow up with: PRIMARY CAREMD [Primary Care Provider] - 7 Days LICHA CHUA MD [Staff Physician] - 7 Days ASIA LUIS MD [Staff Physician] - 7 Days Prescriptions: Spironolactone [Aldactone] 25 mg PO QDAY #30 tablet Aspirin [Aspirin BABY CHEW TAB] 81 mg PO QDAY #30 tab.chew Ticagrelor [Brilinta] 90 mg PO BID #60 tablet carvediloL [Coreg] 3.125 mg PO BID #60 tablet Losartan [Cozaar] 50 mg PO QDAY #30 tablet DAPTOmycin 500 mg IV Q24H 8 Days vial Furosemide [Lasix TAB] 40 mg PO QDAY #30 tablet AtorvaSTATin [Lipitor] 80 mg PO QHS #30 tablet Ceftaroline Fosamil (Nf) [Teflaro (Nf)] 600 mg IV Q8H 8 Days vial lisinopriL [Zestril TAB] 2.5 mg PO QDAY #30 tablet
[2021-06-14] MEDS: HEPARIN 5,000 UNIT/1 ML VIAL SUB-Q SCH (10:04)
[2021-06-14] MEDS: LOSARTAN 50 MG TAB PO SCH (10:05)
[2021-06-14] MEDS: FUROSEMIDE 40 MG TAB PO SCH (10:05)
[2021-06-14] MEDS: carvediloL 6.25 MG TAB PO SCH (10:05)
[2021-06-14] MEDS: FAMOTIDINE 20 MG TAB PO SCH (10:05)
[2021-06-14] MEDS: TICAGRELOR 90 MG TAB PO SCH (10:05)
[2021-06-14] MEDS: ASPIRIN EC 81 MG TAB PO SCH (10:05)
[2021-06-14] MEDS: SPIRONOLACTONE 25 MG TAB PO SCH (10:05)
[2021-06-14 20:23] VITALS: BP 98/65
--- NOTE | 2021-06-14 20:30 | Progress Note ---
Assessment and Plan - Patient Problems (1) CHF (congestive heart failure) Current Visit: Yes Status: Chronic (2) Coronary artery disease Current Visit: Yes Status: Acute Qualifiers: Coronary Disease-Associated Artery/Lesion type: [place] artery [place] vs. transplanted heart: [place] heart (3) Dilated cardiomyopathy Current Visit: Yes Status: Acute Subjective Date of service: 06/14/21 Principal diagnosis: 06/06/21 Interval history: SLEEPING Objective Vital Signs Temp Pulse Resp BP Pulse Ox 06/14/21 16:26 97.0 F L 84 20 98/65 96 06/14/21 13:13 97 06/14/21 11:00 98.3 F 86 18 90/54 94 06/14/21 10:05 90 87/57 06/14/21 07:44 98.7 F 90 18 87/57 97 06/14/21 05:00 76 06/14/21 03:27 98.4 F 83 16 101/73 97 06/13/21 23:15 98.8 F 77 16 92/65 98 06/13/21 21:35 99 06/13/21 21:00 81 - Physical Examination General: No Apparent Distress HEENT: Positive: PERRL Neck: Positive: neck supple, JVD/HJR Cardiac: Positive: Reg Rate and Rhythm Lungs: Positive: clear to auscultation Neuro: Positive: Grossly Intact Abdomen: Positive: Soft Skin: Positive: Clear Extremities: Present: Other (NO EDEMA). Absent: edema - Imaging and Cardiology EKG: report reviewed (Sinus tachycardia no acute ST-T wave changes)
== END 2021-06-14 23:11 | disposition home health service (06) | DRG 314 ==
LOC: ED 14:46 → 4A 21:24
PROVIDERS: ADMIT Internal Medicine; ATTEND Hospitalist
DX: T82.7XXA Infection and inflammatory reaction due to other cardiac and vascular devices, implants and grafts, initial encounter (principal); I50.43 Acute on chronic combined systolic (congestive) and diastolic (congestive) heart failure; I33.0 Acute and subacute infective endocarditis; J18.9 Pneumonia, unspecified organism; J96.01 Acute respiratory failure with hypoxia; I42.0 Dilated cardiomyopathy; I11.0 Hypertensive heart disease with heart failure; I07.9 Rheumatic tricuspid valve disease, unspecified; I25.10 Atherosclerotic heart disease of native coronary artery without angina pectoris; B95.62 Methicillin resistant Staphylococcus aureus infection as the cause of diseases classified elsewhere; D64.9 Anemia, unspecified; Z82.49 Family history of ischemic heart disease and other diseases of the circulatory system; Z98.61 Coronary angioplasty status; Z87.891 Personal history of nicotine dependence; Z95.5 Presence of coronary angioplasty implant and graft; Y92.89 Other specified places as the place of occurrence of the external cause; Z91.19 Patient's noncompliance with other medical treatment and regimen
CPT/HCPCS: 36415; 71046; 80048; 80053; 80307; 81001; 82140; 82550; 83690; 83880; 84484; 85025; 85610; 87040; 93005; 93306; G0378; C8929; J0696; J0712; J0878; J1644; J1940

== ENCOUNTER 2021-10-17 01:28 | Inpatient (IN) | payer SELFPAY ==
[2021-10-17] MEDS ORDERED: ASPIRIN 81 MG TAB CHEW PO ONE (02:12)
[2021-10-17] MEDS ORDERED: NITROGLYCERIN 0.4 MG TAB SUBL SL PRN ×2 (02:12→05:30)
[2021-10-17] MEDS ORDERED: MORPHINE 4 MG/1 ML INJ IV ONE (02:12)
--- NOTE | 2021-10-17 02:45 | XRay Report ---
CHEST 1 VIEW INDICATION / CLINICAL INFORMATION: CHES TPAIN. COMPARISON: Chest x-ray 06/05/2021 FINDINGS: SUPPORT DEVICES: None. HEART / MEDIASTINUM: Heart size is within normal limits. Mediastinal contour demonstrates no signific ant abnormality. LUNGS / PLEURA: No significant pulmonary abnormality. BONES: No significant osseous abnormality. ADDITIONAL FINDINGS: No significant additional findings. IMPRESSION: 1. No active cardiopulmonary disease. Signer Name: Duarte Alonso II, MD Signed: 10/17/2021 2:41 AM Workstation Name: [id number]
[2021-10-17 03:00] LABS: Hemoglobin 12.6 gm/dl (11.8-15.2); Mean Corpuscular HGB Conc 32 % (32-34); Mean Corpuscular Volume 93 fl (84-94); Platelet Count 141 K/mm3 (140-440); Red Cell Distribution Width 17.1 % (13.2-15.2)
[2021-10-17 03:13] LABS: Creatine Kinase MB 6.5 ng/mL (0.0-4.0)
[2021-10-17 03:14] LABS: Alanine Aminotransferase 30 units/L (7-56); Albumin 3.9 g/dL (3.9-5); BUN/Creatinine Ratio 14; Blood Urea Nitrogen 17 mg/dL (9-20); Calcium 9.1 mg/dL (8.4-10.2); Hemolysis Index 6
[2021-10-17] MEDS ORDERED: HEPARIN 10,000 UNITS/10 ML VIAL IV ONE ×3 (03:23→05:05)
[2021-10-17 03:30] LABS: Chol/HDL Ratio 3.02 %; HDL Cholesterol 49 mg/dL (40-59); LDL Cholesterol,Direct 83 mg/dL (50-130)
--- NOTE | 2021-10-17 03:32 | Emergency Department Report ---
ED General Adult HPI - General Chief complaint: Chest Pain Stated complaint: CHEST PAIN PUI?: No Time Seen by Provider: 10/17/21 02:21 Source: patient, EMS Mode of arrival: Stretcher Limitations: No Limitations - History of Present Illness Initial comments: This is a 61-year-old male with medical history of ischemic cardiomyopathy, hypertension, myocardial infarction with 1 cardiac stent; denies diabetes or stroke in the past came in today with concerns of left-sided chest discomfort which is a pressure-like sensation around 8:00 in the evening. Patient states it radiates to his right hand and this is very consistent with his previous heart attack. At the time of my evaluation patient denies any chest discomfort. Patient denies anything makes it worse with anything makes it better. Patient stated that since he had a previous heart attack he currently does not smoke anymore. Patient denies using cocaine. Patient current denies any other symptoms such as fever chill night sweat dizziness blurred vision lightheadedness headache tinnitus ear pain runny nose sore throat loss of taste loss smell palpitation short of breath cough abdominal pain nausea vomiting diarrhea constipation dysuria myalgia arthralgia new rash and heat or cold intolerance. - Related Data Previous Rx's Medication Instructions Recorded Last Taken Type Aspirin EC [Halfprin EC] 81 mg PO QDAY tablet 06/14/21 Unknown Rx Aspirin [Aspirin BABY CHEW TAB] 81 mg PO QDAY #30 tab.chew 06/14/21 Unknown Rx AtorvaSTATin [Lipitor] 40 mg PO QHS tablet 06/14/21 Unknown Rx AtorvaSTATin [Lipitor] 80 mg PO QHS #30 tablet 06/14/21 Unknown Rx Ceftaroline Fosamil (Nf) [Teflaro 600 mg IV Q8H 8 Days vial 06/14/21 Unknown Rx (Nf)] DAPTOmycin 500 mg IV Q24H 8 Days vial 06/14/21 Unknown Rx Famotidine [Pepcid] 20 mg PO BID tablet 06/14/21 Unknown Rx Furosemide [Lasix TAB] 40 mg PO QDAY tablet 06/14/21 Unknown Rx Furosemide [Lasix TAB] 40 mg PO QDAY #30 tablet 06/14/21 Unknown Rx Losartan [Cozaar] 50 mg PO QDAY #30 tablet 06/14/21 Unknown Rx Spironolactone [Aldactone] 25 mg PO QDAY tablet 06/14/21 Unknown Rx Spironolactone [Aldactone] 25 mg PO QDAY #30 tablet 06/14/21 Unknown Rx Ticagrelor [Brilinta] 90 mg PO BID tablet 06/14/21 Unknown Rx Ticagrelor [Brilinta] 90 mg PO BID #60 tablet 06/14/21 Unknown Rx carvediloL [Coreg] 3.125 mg PO BID tablet 06/14/21 Unknown Rx carvediloL [Coreg] 3.125 mg PO BID #60 tablet 06/14/21 Unknown Rx lisinopriL [Zestril TAB] 2.5 mg PO QDAY #30 tablet 06/14/21 Unknown Rx Allergies Allergy/AdvReac Type Severity Reaction Status Date / Time No Known Allergies Allergy Verified 10/17/21 02:20 ED Review of Systems ROS: Stated complaint: CHEST PAIN Other details as noted in HPI Comment: All other systems reviewed and negative Constitutional: no symptoms reported, see HPI Eyes: as per HPI ENT: as per HPI Respiratory: no symptoms reported, see HPI Cardiovascular: as per HPI, chest pain. denies: palpitations, dyspnea on exertion, orthopnea, edema, syncope, paroxysmal nocturnal dyspnea Endocrine: no symptoms reported, see HPI Gastrointestinal: as per HPI Genitourinary: as per HPI Musculoskeletal: as per HPI Skin: as per HPI Neurological: as per HPI Psychiatric: as per HPI Hematological/Lymphatic: as per HPI ED Past Medical Hx - Past Medical History Previous Medical History?: Yes Hx Heart Attack/AMI: Yes (12/23/20 STEMI-post cath) Hx Congestive Heart Failure: No Hx Diabetes: No Hx Asthma: No Hx COPD: No Hx HIV: No Additional medical history: Left knee pain - Surgical History Past Surgical History?: Yes Hx Coronary Stent: Yes (12/23/20) Additional Surgical History: left knee surgery - Social History Smoking Status: Never Smoker - Medications Home Medications: Home Medications Medication Instructions Recorded Confirmed Last Taken Type Aspirin EC [Halfprin EC] 81 mg PO QDAY tablet 06/14/21 Unknown Rx Aspirin [Aspirin BABY CHEW TAB] 81 mg PO QDAY #30 tab.chew 06/14/21 Unknown Rx AtorvaSTATin [Lipitor] 40 mg PO QHS tablet 06/14/21 Unknown Rx AtorvaSTATin [Lipitor] 80 mg PO QHS #30 tablet 06/14/21 Unknown Rx Ceftaroline Fosamil (Nf) [Teflaro 600 mg IV Q8H 8 Days vial 06/14/21 Unknown Rx (Nf)] DAPTOmycin 500 mg IV Q24H 8 Days vial 06/14/21 Unknown Rx Famotidine [Pepcid] 20 mg PO BID tablet 06/14/21 Unknown Rx Furosemide [Lasix TAB] 40 mg PO QDAY tablet 06/14/21 Unknown Rx Furosemide [Lasix TAB] 40 mg PO QDAY #30 tablet 06/14/21 Unknown Rx Losartan [Cozaar] 50 mg PO QDAY #30 tablet 06/14/21 Unknown Rx Spironolactone [Aldactone] 25 mg PO QDAY tablet 06/14/21 Unknown Rx Spironolactone [Aldactone] 25 mg PO QDAY #30 tablet 06/14/21 Unknown Rx Ticagrelor [Brilinta] 90 mg PO BID tablet 06/14/21 Unknown Rx Ticagrelor [Brilinta] 90 mg PO BID #60 tablet 06/14/21 Unknown Rx carvediloL [Coreg] 3.125 mg PO BID tablet 06/14/21 Unknown Rx carvediloL [Coreg] 3.125 mg PO BID #60 tablet 06/14/21 Unknown Rx lisinopriL [Zestril TAB] 2.5 mg PO QDAY #30 tablet 06/14/21 Unknown Rx ED Physical Exam - General Limitations: No Limitations General appearance: alert, in no apparent distress - Head Head exam: Present: atraumatic, normocephalic, normal inspection - Eye Eye exam: Present: normal appearance, PERRL, EOMI Pupils: Present: normal accommodation - ENT ENT exam: Present: normal exam, mucous membranes moist - Neck Neck exam: Present: normal inspection, full ROM - Respiratory Respiratory exam: Present: normal lung sounds bilaterally - Cardiovascular Cardiovascular Exam: Present: regular rate, normal rhythm, normal heart sounds - GI/Abdominal GI/Abdominal exam: Present: soft - Extremities Exam Extremities exam: Present: normal inspection, full ROM, normal capillary refill - Back Exam Back exam: Present: normal inspection, full ROM - Neurological Exam Neurological exam: Present: alert, oriented X3, CN II-XII intact, normal gait - Psychiatric Psychiatric exam: Present: normal affect, normal mood - Skin Skin exam: Present: normal color ED Course Vital Signs 10/17/21 02:35 Pulse Rate 75 Respiratory 15 Rate Blood Pressure 118/90 [Left] O2 Sat by Pulse 97 Oximetry - Reevaluation(s) Reevaluation #1: 10/17/21 03:33 Patient's troponin compared with 0.089; consistent with NSTEMI. I will also sta rt patient on heparin. I will also consult hospitalist for patient's to be admitted. 10/17/21 04:44 PATIENT CURRENTLY CHEST PAIN FREE. I HAVE SPOKE TO DR. VELASQUEZ WHO KINDLY ACCEPTED THE PATIENT. ED Medical Decision Making - Lab Data Result diagrams: 10/17/21 02:38 10/17/21 02:38 - EKG Data -: EKG Interpreted by Me EKG shows normal: sinus rhythm Rate: normal - EKG Data When compared to previous EKG there are: no significant change Interpretation: no acute changes, normal EKG 10/17/21 03:34 Normal sinus rhythm at [address] segment elevation or depression and th ere are no Wellens wave. - Radiology Data Radiology results: report reviewed No acute cardiopulmonary process. Critical care attestation.: If time is entered above; I have spent that time in minutes in the direct care of this critically ill patient, excluding procedure time. ED Disposition Clinical Impression: NSTEMI (non-ST elevated myocardial infarction) Disposition: ADMITTED INPATIENT Is pt being admited?: Yes Does the pt Need Aspirin: Yes Condition: Stable Time of Disposition: 03:30
[2021-10-17 04:02] LABS: INR 0.92 (0.87-1.13)
[2021-10-17] MEDS ORDERED: HEPARIN 10,000 UNITS/10 ML VIAL IV PRN ×2 (05:05→06:00)
--- NOTE | 2021-10-17 05:23 | History and Physical Report ---
History of Present Illness Date of examination: 10/17/21 Date of admission: 10/17/21 Chief complaint: Chest Pain History of present illness: 61-year-old -[place] male with known history of ischemic cardiomyopathy, hypertension, history of TX with cardiac stent placement in the past presenting to the emergency room today complaining of chest pain. Chest pain was pressure- like in nature and more on the left side of his chest radiating towards the left and right upper extremity. There has been no known relieving or exacerbating factor. Patient denies any headache or dizziness and denies any diaphoresis. He denies any fever or chills, no nausea or vomiting and no abdominal pain. Denies any shortness of breath. Patient had an echocardiogram done in May 2021 with EF of 15 to 20%. He admits that he continues to smoke tobacco occasionally. He denies any illicit drug use. Work-up in the emergency room today, chest x-ray was unremarkable. Lab reveals elevated troponin of 0.089. EKG did not show any acute findings. Patient has been started on heparin drip and being admitted for NSTEMI. Past History Past Medical History: acute TX, hypertension, other (Ischemic Cardiomyopathy) Past Surgical History: PTCA, Other (Left Knee Surgery) Social history: no significant social history Family history: no significant family history Medications and Allergies Allergies Allergy/AdvReac Type Severity Reaction Status Date / Time No Known Allergies Allergy Verified 10/17/21 02:20 Home Medications Medication Instructions Recorded Confirmed Last Taken Type Aspirin EC [Halfprin EC] 81 mg PO QDAY tablet 06/14/21 Unknown Rx Aspirin [Aspirin BABY CHEW TAB] 81 mg PO QDAY #30 tab.chew 06/14/21 Unknown Rx AtorvaSTATin [Lipitor] 40 mg PO QHS tablet 06/14/21 Unknown Rx AtorvaSTATin [Lipitor] 80 mg PO QHS #30 tablet 06/14/21 Unknown Rx Ceftaroline Fosamil (Nf) [Teflaro 600 mg IV Q8H 8 Days vial 06/14/21 Unknown Rx (Nf)] DAPTOmycin 500 mg IV Q24H 8 Days vial 06/14/21 Unknown Rx Famotidine [Pepcid] 20 mg PO BID tablet 06/14/21 Unknown Rx Furosemide [Lasix TAB] 40 mg PO QDAY tablet 06/14/21 Unknown Rx Furosemide [Lasix TAB] 40 mg PO QDAY #30 tablet 06/14/21 Unknown Rx Losartan [Cozaar] 50 mg PO QDAY #30 tablet 06/14/21 Unknown Rx Spironolactone [Aldactone] 25 mg PO QDAY tablet 06/14/21 Unknown Rx Spironolactone [Aldactone] 25 mg PO QDAY #30 tablet 06/14/21 Unknown Rx Ticagrelor [Brilinta] 90 mg PO BID tablet 06/14/21 Unknown Rx Ticagrelor [Brilinta] 90 mg PO BID #60 tablet 06/14/21 Unknown Rx carvediloL [Coreg] 3.125 mg PO BID tablet 06/14/21 Unknown Rx carvediloL [Coreg] 3.125 mg PO BID #60 tablet 06/14/21 Unknown Rx lisinopriL [Zestril TAB] 2.5 mg PO QDAY #30 tablet 06/14/21 Unknown Rx Active Meds: Active Medications Heparin Sodium (Porcine) (Heparin 10,000 Units/10 Ml Vial) 2,800 unit IV Q6H PRN PRN Reason: Anti-Xa Assay < 0.1 units/ml Heparin Sodium/Sodium Chloride (Heparin/ 0.45% Nacl-25,000 Unit/500 Ml) 25,000 unit in 500 mls @ 20 mls/hr IV TITRATE KAVITHA; Protocol Nitroglycerin (Nitroglycerin 0.4 Mg Tab Subl) 0.4 mg SL .Q5MIN PRN PRN Reason: Chest Pain Review of Systems Constitutional: no fever, no chills Ears, nose, mouth and throat: no nasal congestion, no sore throat Cardiovascular: chest pain, no palpitations Respiratory: no cough, no shortness of breath Gastrointestinal: no abdominal pain, no nausea, no vomiting, no diarrhea Genitourinary Male: no dysuria, no hematuria Musculoskeletal: no neck pain, no low back pain Integumentary: no rash, no pruritis Neurological: no headaches, no confusion Psychiatric: no anxiety, no depression Endocrine: no polyphagia, no polydipsia, no polyuria Exam - Constitutional Vitals: Temp Pulse Resp BP Pulse Ox 75 15 118/90 97 10/17/21 02:35 10/17/21 02:35 10/17/21 02:35 10/17/21 02:35 General appearance: Present: no acute distress, well-nourished - EENT Eyes: Present: PERRL, EOM intact. Absent: scleral icterus ENT: hearing intact, clear oral mucosa, dentition normal - Neck Neck: Present: supple, normal ROM - Respiratory Respiratory effort: normal Respiratory: bilateral: CTA - Cardiovascular Rhythm: regular Heart Sounds: Present: S1 & S2. Absent: gallop, systolic murmur, diastolic murmur, rub, click - Extremities Extremities: no ischemia, pulses intact, pulses symmetrical, No edema, normal temperature, normal color, Full ROM Peripheral Pulses: within normal limits - Abdominal General gastrointestinal: Present: soft, non-tender, non-distended, normal bowel sounds. Absent: mass - Integumentary Integumentary: Present: clear, warm, dry, normal turgor. Absent: rash - Musculoskeletal Musculoskeletal: strength equal bilaterally - Psychiatric Psychiatric: appropriate mood/affect, intact judgment & insight, memory intact, cooperative - Neurologic Neurologic: CNII-XII intact, no focal deficits, moves all extremities HEART Score - HEART Score History: Moderately suspicious EKG: Non-specific Age: 45-65 Risk factors: > 3 risk factors or hx of atherosclerotic disease Troponin: Troponin T 0.089 ng/mL (0.00-0.029) H 10/17/21 02:38 Troponin: 1-3x normal limit HEART Score: 6 Results - Labs CBC & Chem 7: 10/17/21 02:38 10/17/21 02:38 Labs: Abnormal lab results 10/17/21 10/17/21 Range/Units 02:38 02:38 RDW 17.1 H (13.2-15.2) % Potassium 3.4 L (3.6-5.0) mmol/L Total Creatine Kinase 215 H (55-170) units/L CK-MB (CK-2) 6.5 H (0.0-4.0) ng/mL Troponin T 0.089 H (0.00-0.029) ng/mL Assessment and Plan Assessment: 1. NSTEMI 2. Chest pain 3. History of ischemic cardiomyopathy 4. Hypertension 5. History of coronary artery disease with stent placement in the past Plan: 1. Patient admitted and placed on telemetry. 2. Started on daily aspirin, sublingual nitroglycerin and IV morphine as needed for chest pain. 3. Patient has been started on heparin drip. 4. Consult placed to the worship director for further evaluation and recommendations. DVT Prophylaxis: Patient on heparin drip. CODE STATUS: Full code
[2021-10-17] MEDS ORDERED: MAGNESIUM HYDROXIDE (MOM) ORAL LIQD UDC PO PRN (05:30)
[2021-10-17] MEDS ORDERED: MORPHINE 2 MG/1 ML INJ IV PRN (05:30)
[2021-10-17] MEDS ORDERED: MORPHINE 4 MG/1 ML INJ IV PRN ×2 (05:30)
[2021-10-17] MEDS ORDERED: ONDANSETRON 4 MG/2 ML INJ IV PRN (05:30)
[2021-10-17] MEDS ORDERED: traMADol 50 MG TAB PO PRN (05:30)
[2021-10-17] MEDS ORDERED: ACETAMINOPHEN 325 MG TAB PO PRN ×2 (05:30)
[2021-10-17] MEDS ORDERED: HEPARIN/ 0.45% NACL DRIP 25,000 UNIT/500 ML BAG IV SCH (06:00)
--- NOTE | 2021-10-17 12:29 | Event Note ---
Date: 10/17/21 Patient seen at bedside today. He characterizes chest pain as being similar to a PR he had in the past. Currently he is chest pain-free. Chest pain was associated with shortness of breath and radiation to the right upper extremity. Patient reports compliance with CHF medications, but has not yet followed with cardiology outpatient. He reports moderate compliance with LifeVest due to tightness causing musculoskeletal chest pain. We discussed current care plan. Currently awaiting formal cardiology consultation.
--- NOTE | 2021-10-17 14:53 | Consultation ---
History of Present Illness Consult date: 10/17/21 Consult reason: chest pain History of present illness: The patient is a 61-year-old man with a history of coronary artery disease, i schemic cardiomyopathy, who states that he follows up regularly at the [facility] with the [place] [employer]. He has had extensive cardiac work-up in this hospital, 9 months ago he presented with an acute anterior wall STEMI, and underwent coronary stenting to an occluded LAD. At that time, he was reported with severe occlusive disease of the distal right coronary artery which was chronic and recommended for medical therapy. He has a severe ischemic cardiomyopathy, ejection fraction of 15 to 20% at the time of his cardiac catheterization and unchanged on the more recent echocardiogram just 3 months ago. He presents to the hospital at this time with a chest pain, which he describes as no different from his chronic chest pain syndrome. His medical therapy which he reports compliance with has no antianginals for his chronic small vessel disease. Work-up in the hospital so far, EKG was a sinus rhythm with an old anterior infarct, no acute ST or T wave changes. The single troponin level measurement in the chart is borderline at 0.08. Chest x-ray reveals a mild cardiomegaly, with clear lungs, no exacerbation of interstitial edema. Past History Past Medical History: acute OH, CAD, heart failure, hypertension Past Surgical History: PTCA, Other (Left Knee Surgery) Social history: no significant social history Family history: no significant family history Medications and Allergies Allergies Allergy/AdvReac Type Severity Reaction Status Date / Time No Known Allergies Allergy Verified 10/17/21 02:20 Home Medications Medication Instructions Recorded Confirmed Last Taken Type Aspirin EC [Halfprin EC] 81 mg PO QDAY tablet 06/14/21 Unknown Rx Aspirin [Aspirin BABY CHEW TAB] 81 mg PO QDAY #30 tab.chew 06/14/21 Unknown Rx AtorvaSTATin [Lipitor] 40 mg PO QHS tablet 06/14/21 Unknown Rx AtorvaSTATin [Lipitor] 80 mg PO QHS #30 tablet 06/14/21 Unknown Rx Ceftaroline Fosamil (Nf) [Teflaro 600 mg IV Q8H 8 Days vial 06/14/21 Unknown Rx (Nf)] DAPTOmycin 500 mg IV Q24H 8 Days vial 06/14/21 Unknown Rx Famotidine [Pepcid] 20 mg PO BID tablet 06/14/21 Unknown Rx Furosemide [Lasix TAB] 40 mg PO QDAY tablet 06/14/21 Unknown Rx Furosemide [Lasix TAB] 40 mg PO QDAY #30 tablet 06/14/21 Unknown Rx Losartan [Cozaar] 50 mg PO QDAY #30 tablet 06/14/21 Unknown Rx Spironolactone [Aldactone] 25 mg PO QDAY tablet 06/14/21 Unknown Rx Spironolactone [Aldactone] 25 mg PO QDAY #30 tablet 06/14/21 Unknown Rx Ticagrelor [Brilinta] 90 mg PO BID tablet 06/14/21 Unknown Rx Ticagrelor [Brilinta] 90 mg PO BID #60 tablet 06/14/21 Unknown Rx carvediloL [Coreg] 3.125 mg PO BID tablet 06/14/21 Unknown Rx carvediloL [Coreg] 3.125 mg PO BID #60 tablet 06/14/21 Unknown Rx lisinopriL [Zestril TAB] 2.5 mg PO QDAY #30 tablet 06/14/21 Unknown Rx Active Meds: Active Medications Acetaminophen (Acetaminophen 325 Mg Tab) 650 mg PO Q4H PRN PRN Reason: Fever >100.5/GARDUNO Acetaminophen (Acetaminophen 325 Mg Tab) 650 mg PO Q6H PRN PRN Reason: Pain, Mild (1-3) Aspirin (Aspirin Ec 325 Mg Tab) 325 mg PO QDAY [facility] Heparin Sodium (Porcine) (Heparin 10,000 Units/10 Ml Vial) 2,800 unit IV Q6H PRN PRN Reason: Anti-Xa Assay < 0.1 units/ml Heparin Sodium/Sodium Chloride (Heparin/ 0.45% Nacl-25,000 Unit/500 Ml) 25,000 unit in 500 mls @ 20 mls/hr IV TITRATE KAVITHA; Protocol Last Admin: 10/17/21 05:34 Dose: 1,000 units/hr, 20 mls/hr Magnesium Hydroxide (Magnesium Hydroxide (Mom) Oral Liqd Udc) 30 ml PO Q4H PRN PRN Reason: Constipation Morphine Sulfate (Morphine 2 Mg/1 Ml Inj) 2 mg IV Q4H PRN PRN Reason: Pain, Moderate (4-6) Morphine Sulfate (Morphine 4 Mg/1 Ml Inj) 4 mg IV Q4H PRN PRN Reason: Pain , Severe (7-10) Morphine Sulfate (Morphine 4 Mg/1 Ml Inj) 2 mg IV Q5MIN PRN PRN Reason: Chest Pain unrelieved by NTG Nitroglycerin (Nitroglycerin 0.4 Mg Tab Subl) 0.4 mg SL Q5M PRN PRN Reason: Chest Pain Last Admin: 10/17/21 08:09 Dose: 0.4 mg Ondansetron HCl (Ondansetron 4 Mg/2 Ml Inj) 4 mg IV Q8H PRN PRN Reason: Nausea And Vomiting Sodium Chloride (Sodium Chloride 0.9% 10 Ml Flush Syringe) 10 ml IV BID KAVITHA Sodium Chloride (Sodium Chloride 0.9% 10 Ml Flush Syringe) 10 ml IV PRN PRN PRN Reason: LINE FLUSH Tramadol HCl (Tramadol 50 Mg Tab) 50 mg PO Q6H PRN PRN Reason: Pain, Moderate (4-6) Review of Systems Cardiovascular: chest pain, shortness of breath, no orthopnea, no palpitations, no rapid/irregular heart beat, no edema, no syncope, no lightheadedness Physical Examination Vital Signs Pulse Resp BP Pulse Ox 75 15 118/90 97 10/17/21 02:35 10/17/21 02:35 10/17/21 02:35 10/17/21 02:35 General appearance: no acute distress HEENT: Positive: PERRL Neck: Positive: neck supple Cardiac: Positive: Reg Rate and Rhythm Lungs: Positive: Decreased Breath Sounds Neuro: Positive: Grossly Intact Abdomen: Positive: Soft Male genitourinary: Positive: deferred Skin: Positive: Clear Extremities: Absent: edema Results 10/17/21 02:38 10/17/21 02:38 Cardiac Enzymes 10/17/21 Range/Units 02:38 AST 28 (5-40) units/L CK-MB (CK-2) 6.5 H (0.0-4.0) ng/mL Coagulation 10/17/21 Range/Units 03:33 PT 13.3 (12.2-14.9) Sec. INR 0.92 (0.87-1.13) APTT 27.0 (24.2-36.6) Sec. Lipids 10/17/21 Range/Units 02:38 Triglycerides 146 (2-149) mg/dL Cholesterol 148 (50-199) mg/dL HDL Cholesterol 49 (40-59) mg/dL Cholesterol/HDL Ratio 3.02 % CBC 10/17/21 Range/Units 02:38 WBC 6.7 (4.5-11.0) K/mm3 RBC 4.20 (3.65-5.03) M/mm3 Hgb 12.6 (11.8-15.2) gm/dl Hct 39.0 (35.5-45.6) % Plt Count 141 (140-440) K/mm3 Comprehensive Metabolic Panel 10/17/21 Range/Units 02:38 Sodium 144 (137-145) mmol/L Potassium 3.4 L (3.6-5.0) mmol/L Chloride 106.7 (98-107) mmol/L Carbon Dioxide 26 (22-30) mmol/L BUN 17 (9-20) mg/dL Creatinine 1.2 (0.8-1.3) mg/dL Glucose 97 (75-100) mg/dL Calcium 9.1 (8.4-10.2) mg/dL AST 28 (5-40) units/L ALT 30 (7-56) units/L Alkaline Phosphatase 106 (35-129) units/L Total Protein 7.3 (6.3-8.2) g/dL Albumin 3.9 (3.9-5) g/dL EKG interpretations - Telemetry EKG Rhythm: Sinus Rhythm (With evidence of an old anterior infarct, no acute changes) Assessment and Plan - Patient Problems (1) Chest pain Current Visit: No Status: Acute Plan to address problem: Patient has a longer complex history of coronary artery disease and ischemic cardiomyopathy. He had a coronary stent to the LAD 9 months ago for an acute S TIMI, has been fully compliant with his aspirin and Brilinta. At the time of cardiac catheterization, he was reported with diffuse severe small vessel disease of the distal right coronary artery, a source of chronic stable angina and recommended for medical therapy. His left ventricular systolic ejection fraction is end-stage at 15 to 20%. At this time, patient is recommended for aggressive medical therapy to include nitrates and Ranexa for his chronic stable angina. I have recommended on fo llow-up with his primary doctors at [place], that future therapies including primary device therapies should be considered for his persistent left ventricular systolic dysfunction.
[2021-10-17] MEDS: TICAGRELOR 90 MG TAB PO SCH ×2 (17:09→21:10)
[2021-10-17] MEDS: LISINOPRIL 5 MG TAB PO SCH (17:09)
[2021-10-17] MEDS: RANOLAZINE ER 500 MG TAB 12HR PO SCH ×2 (17:09→21:10)
[2021-10-17] MEDS: FUROSEMIDE 20 MG TAB PO SCH (17:09)
[2021-10-17] MEDS: SPIRONOLACTONE 25 MG TAB PO SCH (17:10)
[2021-10-17] MEDS: carvediloL 3.125 MG TAB PO SCH (21:10)
--- NOTE | 2021-10-18 07:48 | Discharge Summary ---
Providers - Providers Date of Admission: 10/17/21 05:09 Date of discharge: 10/18/21 Attending physician: KAREN HAMILTON MD 10/17/21 Consult to Cardiac Rehabilitation [CONS] Routine Reason For Exam: Phase I 10/17/21 05:09 Consult to Cardiology [CONS] Routine Consulting Provider: Reason For Exam: NSTEMI 10/17/21 08:27 Consult to Physician [CONS] Routine Comment: Consulting Provider: LICHA CHUA Physician Instructions: Reason For Exam: chest pain Primary care physician: ANGELA PADILLA Hospitalization Reason for admission: Chest pain Condition: Stable Hospital course: 61-year-old male with history of ischemic cardiomyopathy, hypertension, ID status postcardiac stent placement who presented with chest pain. He also had an elevated troponin level and was started on a heparin drip. Cardiology evaluated the patient and determined that patient could be managed medically for his chronic angina. Heparin drip was discontinued. Once patient was stable he was discharged home with instruction to follow-up with his outpatient [employer]. Disposition: 30 STILL A PATIENT Final Discharge Diagnosis (Prints w/discharge instructions): Chronic stable angina. NSTEMI type II. Ischemic cardiomyopathy. Chronic systolic heart failure. Hypertension. Coronary artery disease Time spent for discharge: 25 minutes Core Measure Documentation - Palliative Care Palliative Care/ Comfort Measures: Not Applicable - Core Measures Any of the following diagnoses?: heart failure, history only - Heart Failure Discharge Requirements GIANNA/ARB for LVSD if EF <40%: Yes Beta king at discharge: Yes Exam - Constitutional Vitals: Temp Pulse Resp BP Pulse Ox 97.4 F L 63 16 96/54 98 10/18/21 04:00 10/18/21 04:00 10/18/21 04:00 10/18/21 04:00 10/18/21 04:00 Plan Care Plan Goals: Please follow-up with your outside [employer] at [place]. Please continue to take all your medications as prescribed. We have added other medications to help with chest pain. Follow up with: ANGELA PADILLA MD [Primary Care Provider] - 3-5 Days Prescriptions: AtorvaSTATin [Lipitor] 40 mg PO QHS 30 Days #30 tablet Spironolactone [Aldactone] 25 mg PO QDAY 30 Days #30 tablet Ticagrelor [Brilinta] 90 mg PO BID 30 Days #60 tablet carvediloL [Coreg] 3.125 mg PO BID 30 Days #60 tablet Aspirin EC [Halfprin EC] 81 mg PO QDAY 30 Days #30 tablet ISOSORBIDE MONOnitrate [Imdur ER] 30 mg PO QDAY 30 Days #30 tablet Furosemide [Lasix TAB] 20 mg PO QDAY 30 Days #30 tablet Nitroglycerin [Nitrostat] 0.4 mg SL Q5M PRN 30 Days #30 tablet PRN Reason: Chest Pain Ranolazine ER [Ranexa ER] 500 mg PO BID 30 Days #60 tablet lisinopriL [Zestril TAB] 5 mg PO QDAY 30 Days #30 tablet
[2021-10-18 08:18] LABS: Basophils % (Auto) 0.6 % (0.0-1.8); Eosinophils # (Auto) 0.5 K/mm3 (0.0-0.4); Hematocrit 36.6 % (35.5-45.6); Hemoglobin 12.1 gm/dl (11.8-15.2); Lymphocytes % (Auto) 36.4 % (13.4-35.0); Mean Corpuscular HGB Conc 33 % (32-34); Mean Corpuscular Volume 92 fl (84-94); Monocytes # (Auto) 0.4 K/mm3 (0.0-0.8); Monocytes % (Auto) 7.8 % (0.0-7.3); Platelet Count 136 K/mm3 (140-440); Red Blood Count 3.99 M/mm3 (3.65-5.03)
[2021-10-18 08:36] LABS: BUN/Creatinine Ratio 14; Blood Urea Nitrogen 15 mg/dL (9-20); Hemolysis Index 2
[2021-10-18] MEDS: RANOLAZINE ER 500 MG TAB 12HR PO SCH (09:08)
[2021-10-18] MEDS: TICAGRELOR 90 MG TAB PO SCH (09:09)
[2021-10-18] MEDS ORDERED: POTASSIUM CHLORIDE ER 20 MEQ TAB PO SCH (09:10)
[2021-10-18] MEDS ORDERED: ASPIRIN EC 81 MG TAB PO SCH (10:00)
[2021-10-18] MEDS ORDERED: ASPIRIN EC 325 MG TAB PO SCH (10:00)
[2021-10-18] MEDS: LISINOPRIL 5 MG TAB PO SCH (10:32)
[2021-10-18] MEDS: carvediloL 3.125 MG TAB PO SCH ×2 (10:33→12:01)
[2021-10-18] MEDS: SPIRONOLACTONE 25 MG TAB PO SCH ×2 (10:33→12:02)
[2021-10-18] MEDS: FUROSEMIDE 20 MG TAB PO SCH ×2 (10:33→12:02)
[2021-10-18 11:07] VITALS: BP 104/70
[2021-10-18] MEDS ORDERED: POTASSIUM CHLORIDE ER 20 MEQ TAB PO NR (11:25)
--- NOTE | 2021-10-18 12:27 | Progress Note ---
Assessment and Plan - Patient Problems (1) Chest pain Current Visit: No Status: Acute Plan to address problem: Patient has a longer complex history of coronary artery disease and ischemic cardiomyopathy. He had a coronary stent to the LAD 9 months ago for an acute STEMI, has been fully compliant with his aspirin and Brilinta. At the time of cardiac catheterization, he was reported with diffuse severe small vessel disease of the distal right coronary artery, a source of chronic stable angina and recommended for medical therapy. His left ventricular systolic ejection fraction is end-stage at 15 to 20%. At this time, patient is recommended for aggressive medical therapy to include long-acting nitrates and Ranexa for his chronic stable angina. In addition to optimal medical therapy, I have recommended on follow-up with his primary doctors at [place], that future therapies including primary device therapies should be considered for his persistent left ventricular systolic dysfunction. Subjective Date of service: 10/18/21 Principal diagnosis: Chest pain Interval history: Patient is comfortable, tolerating the addition of isosorbide and Ranexa to his regimen. Objective Vital Signs Temp Pulse Pulse Resp BP BP Pulse Ox 10/18/21 11:06 98.0 F 16 104/70 10/18/21 10:43 67 18 99 10/18/21 09:00 97.8 F 65 16 96/59 99 10/18/21 04:00 97.4 F L 63 16 96/54 98 10/18/21 00:08 97.8 F 66 18 91/57 97 10/17/21 21:30 80 20 98 10/17/21 21:10 80 110/72 10/17/21 20:23 98.4 F 80 18 110/72 98 10/17/21 20:05 80 10/17/21 18:30 85 18 94 10/17/21 16:10 85 10/17/21 15:28 97.9 F 60 18 112/74 98 - Physical Examination HEENT: Positive: PERRL Neck: Positive: neck supple Cardiac: Positive: Reg Rate and Rhythm Lungs: Positive: Decreased Breath Sounds Neuro: Positive: Grossly Intact Abdomen: Positive: Soft Skin: Positive: Clear Extremities: Absent: edema - Labs and Meds CBC 10/18/21 Range/Units 07:38 WBC 5.5 (4.5-11.0) K/mm3 RBC 3.99 (3.65-5.03) M/mm3 Hgb 12.1 (11.8-15.2) gm/dl Hct 36.6 (35.5-45.6) % Plt Count 136 L (140-440) K/mm3 Lymph # (Auto) 2.0 (1.2-5.4) K/mm3 [place] # (Auto) 0.4 (0.0-0.8) K/mm3 Eos # (Auto) 0.5 H (0.0-0.4) K/mm3 Baso # (Auto) 0.0 (0.0-0.1) K/mm3 Comprehensive Metabolic Panel 10/18/21 Range/Units 07:38 Sodium 141 (137-145) mmol/L Potassium 3.2 L (3.6-5.0) mmol/L Chloride 105.2 (98-107) mmol/L Carbon Dioxide 25 (22-30) mmol/L BUN 15 (9-20) mg/dL Creatinine 1.1 (0.8-1.3) mg/dL Glucose 98 (75-100) mg/dL Calcium 9.0 (8.4-10.2) mg/dL
--- NOTE | 2021-10-18 13:41 | Electrocardiograph Report ---
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
--- NOTE | 2021-10-18 13:43 | Electrocardiograph Report ---
[facility] Test Date: 2021-10-17 Test Time: 10:04:07 Pat Name: BRISEIDA RODRIGUEZ Department: Room: A479 1 Gender: M Banana Handler: MADISON : 1960 Requested By: MAGDALENA VELASQUEZ Order Number: [id number] Reading MD: Maryam Sands Measurements Intervals [place] Rate: 72 P: 51 MN: 129 QRS: -51 QRSD: 102 T: 87 QT: 383 QTc: 420 Interpretive Statements Sinus rhythm Anterior infarct of undetermined age Compared to ECG 10/17/2021 02:28:34 No significant change Electronically Signed On 10-18-2021 13:43:04 EDT by Maryam Sands
--- NOTE | 2021-10-18 13:51 | Electrocardiograph Report ---
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
== END 2021-10-18 16:15 | disposition home or self-care (01) | DRG 281 ==
LOC: ED 01:28 → 4A 05:09
PROVIDERS: ADMIT Internal Medicine Geriatric Medicine; ATTEND Student in an Organized Health Care Education/Training Program
DX: I25.119 Atherosclerotic heart disease of native coronary artery with unspecified angina pectoris (principal); I21.A1 Myocardial infarction type 2; I50.22 Chronic systolic (congestive) heart failure; I10 Essential (primary) hypertension; I25.10 Atherosclerotic heart disease of native coronary artery without angina pectoris; I25.5 Ischemic cardiomyopathy; Z95.5 Presence of coronary angioplasty implant and graft; I25.2 Old myocardial infarction
CPT/HCPCS: 36415; 71045; 80048; 80053; 80061; 82550; 82553; 84484; 85025; 85027; 85520; 85610; 85730; 93005; G0378; J3490; J1644; J2270

== ENCOUNTER 2021-10-24 23:01 | Inpatient (IN) | payer SELFPAY ==
[2021-10-24 23:55] LABS: Basophils % (Auto) 0.7 % (0.0-1.8); Eosinophils # (Auto) 0.6 K/mm3 (0.0-0.4); Eosinophils % (Auto) 8.6 % (0.0-4.3); Hematocrit 36.9 % (35.5-45.6); Hemoglobin 11.9 gm/dl (11.8-15.2); Lymphocytes # (Auto) 2.1 K/mm3 (1.2-5.4); Lymphocytes % (Auto) 32.5 % (13.4-35.0); Mean Corpuscular HGB Conc 32 % (32-34); Mean Corpuscular Volume 94 fl (84-94); Monocytes # (Auto) 0.5 K/mm3 (0.0-0.8); Monocytes % (Auto) 7.1 % (0.0-7.3); Platelet Count 168 K/mm3 (140-440); Red Blood Count 3.94 M/mm3 (3.65-5.03); Red Cell Distribution Width 16.7 % (13.2-15.2)
[2021-10-24 23:59] LABS: INR 0.9 (0.87-1.13)
[2021-10-25] LABS: Partial Thromboplastin Time 28.8 Sec. (24.2-36.6)
[2021-10-25 00:03] LABS: Albumin 4.1 g/dL (3.9-5); Calcium 9.1 mg/dL (8.4-10.2)
--- NOTE | 2021-10-25 00:48 | XRay Report ---
CHEST 2 VIEWS INDICATION / CLINICAL INFORMATION: Chest Pain. COMPARISON: Chest x-ray 10/17/2021 FINDINGS: SUPPORT DEVICES: None. HEART / MEDIASTINUM: Heart size and mediastinal contour appear within normal limits. Coronary artery stent left coronary circulation. LUNGS / PLEURA: Interval increase in linear interstitial opacities and mild vascular prominence bilat erally. Trace fluid within the fissures. No pneumothorax. BONES: No significant osseous abnormality. ADDITIONAL FINDINGS: No significant additional findings. IMPRESSION: 1. Appearance of chest suggests interstitial pneumonia and/or mild interstitial edema. The slight vas cular prominence could reflect pulmonary venous congestion. Signer Name: Duarte Alonso II, MD Signed: 10/25/2021 12:47 AM Workstation Name: [id number]
--- NOTE | 2021-10-25 01:27 | Emergency Department Report ---
ED Chest Pain HPI - General Chief Complaint: Chest Pain Stated Complaint: CHEST TIGHT/SOB Time Seen by Provider: 10/25/21 01:29 Source: patient Mode of arrival: Ambulatory Limitations: No Limitations - History of Present Illness Initial Comments: Patient is a 61-year-old male with past medical history of recent NSTEMI who presents emergency department complaint of chest pain. Patient reports that he has substernal chest pain that is pressure-like in nature. He also has some right hand numbness. He reports that his pain is currently 8 out of 10. He notes that he has had diaphoresis but no nausea. He states that he does have stents placed and states he has a cardiology at this hospital. Patient states the pain started at 6 PM while he was sitting. - Related Data Previous Rx's Medication Instructions Recorded Last Taken Type Famotidine [Pepcid] 20 mg PO BID tablet 06/14/21 Unknown Rx Aspirin EC [Halfprin EC] 81 mg PO QDAY 30 Days #30 tablet 10/18/21 Unknown Rx AtorvaSTATin [Lipitor] 40 mg PO QHS 30 Days #30 tablet 10/18/21 Unknown Rx Furosemide [Lasix TAB] 20 mg PO QDAY 30 Days #30 tablet 10/18/21 Unknown Rx ISOSORBIDE MONOnitrate [Monoket] 20 mg PO QDAY 30 Days #30 tablet 10/18/21 Unknown Rx Nitroglycerin [Nitrostat] 0.4 mg SL Q5M PRN 30 Days #30 10/18/21 Unknown Rx tablet Ranolazine ER [Ranexa ER] 500 mg PO BID 30 Days #60 tablet 10/18/21 Unknown Rx Spironolactone [Aldactone] 25 mg PO QDAY 30 Days #30 tablet 10/18/21 Unknown Rx Ticagrelor [Brilinta] 90 mg PO BID 30 Days #60 tablet 10/18/21 Unknown Rx carvediloL [Coreg] 3.125 mg PO BID 30 Days #60 tablet 10/18/21 Unknown Rx lisinopriL [Zestril TAB] 5 mg PO QDAY 30 Days #30 tablet 10/18/21 Unknown Rx Allergies Allergy/AdvReac Type Severity Reaction Status Date / Time No Known Allergies Allergy Verified 10/17/21 02:20 Heart Score - HEART Score History: Highly suspicious EKG: Non-specific Age: 45-65 Risk factors: > 3 risk factors or hx of atherosclerotic disease Troponin: > 3x normal limit HEART Score: 8 - EKG Read Time Time EKG Completed: 23:08 EKG Read Time: 23:10 ED Review of Systems ROS: Stated complaint: CHEST TIGHT/SOB Other details as noted in HPI Constitutional: denies: chills, fever Eyes: denies: eye pain, eye discharge, vision change ENT: denies: ear pain, throat pain Respiratory: shortness of breath. denies: cough, wheezing Cardiovascular: chest pain. denies: palpitations Endocrine: no symptoms reported Gastrointestinal: nausea. denies: abdominal pain, diarrhea Genitourinary: denies: urgency, dysuria Musculoskeletal: denies: back pain, joint swelling, arthralgia Skin: denies: rash, lesions Neurological: numbness. denies: headache, weakness, paresthesias Psychiatric: denies: anxiety, depression Hematological/Lymphatic: denies: easy bleeding, easy bruising ED Past Medical Hx - Past Medical History Hx Heart Attack/AMI: Yes (12/23/20 cardiac cath, 10/16/21 NSTEMI) Hx Congestive Heart Failure: No Hx Diabetes: No Hx Asthma: No Hx COPD: No Hx HIV: No Additional medical history: Left knee pain - Surgical History Past Surgical History?: Yes Hx Coronary Stent: Yes (12/23/20) Additional Surgical History: left knee surgery - Social History Smoking Status: Former Smoker Substance Use Type: None - Medications Home Medications: Home Medications Medication Instructions Recorded Confirmed Last Taken Type Famotidine [Pepcid] 20 mg PO BID tablet 06/14/21 10/18/21 Unknown Rx Aspirin EC [Halfprin EC] 81 mg PO QDAY 30 Days #30 tablet 10/18/21 Unknown Rx AtorvaSTATin [Lipitor] 40 mg PO QHS 30 Days #30 tablet 10/18/21 Unknown Rx Furosemide [Lasix TAB] 20 mg PO QDAY 30 Days #30 tablet 10/18/21 Unknown Rx ISOSORBIDE MONOnitrate [Monoket] 20 mg PO QDAY 30 Days #30 tablet 10/18/21 Unknown Rx Nitroglycerin [Nitrostat] 0.4 mg SL Q5M PRN 30 Days #30 10/18/21 Unknown Rx tablet Ranolazine ER [Ranexa ER] 500 mg PO BID 30 Days #60 tablet 10/18/21 Unknown Rx Spironolactone [Aldactone] 25 mg PO QDAY 30 Days #30 tablet 10/18/21 Unknown Rx Ticagrelor [Brilinta] 90 mg PO BID 30 Days #60 tablet 10/18/21 Unknown Rx carvediloL [Coreg] 3.125 mg PO BID 30 Days #60 tablet 10/18/21 Unknown Rx lisinopriL [Zestril TAB] 5 mg PO QDAY 30 Days #30 tablet 10/18/21 Unknown Rx ED Physical Exam - General Limitations: No Limitations General appearance: alert, in no apparent distress - Head Head exam: Present: atraumatic, normocephalic - Eye Eye exam: Present: normal appearance - ENT ENT exam: Present: mucous membranes moist - Neck Neck exam: Present: normal inspection - Respiratory Respiratory exam: Present: normal lung sounds bilaterally. Absent: respiratory distress - Cardiovascular Cardiovascular Exam: Present: regular rate, normal rhythm. Absent: systolic murmur, diastolic murmur, rubs, gallop - GI/Abdominal GI/Abdominal exam: Present: soft, normal bowel sounds - Rectal Rectal exam: Present: deferred - Extremities Exam Extremities exam: Present: normal inspection - Back Exam Back exam: Present: normal inspection - Neurological Exam Neurological exam: Present: alert, oriented X3 - Psychiatric Psychiatric exam: Present: normal affect, normal mood - Skin Skin exam: Present: warm, dry, intact, normal color. Absent: rash ED Course Vital Signs 10/24/21 10/24/21 10/25/21 23:13 23:45 02:19 Temperature 98.4 F Pulse Rate 102 H 162 H 92 H Respiratory 26 H 15 Rate Blood Pressure 128/68 97/60 150/81 Blood Pressure [Left] O2 Sat by Pulse 95 100 96 Oximetry 10/25/21 10/25/21 10/25/21 02:25 02:30 02:45 Temperature Pulse Rate 92 H 90 Respiratory 18 11 L 19 Rate Blood Pressure 117/81 109/83 Blood Pressure 117/81 [Left] O2 Sat by Pulse 96 97 Oximetry 10/25/21 10/25/21 10/25/21 03:16 03:45 04:00 Temperature Pulse Rate 91 H 96 H 88 Respiratory 14 19 20 Rate Blood Pressure 116/81 113/85 113/84 Blood Pressure [Left] O2 Sat by Pulse 96 Oximetry 10/25/21 10/25/21 04:16 04:30 Temperature Pulse Rate 89 88 Respiratory 22 22 Rate Blood Pressure 117/78 110/81 Blood Pressure [Left] O2 Sat by Pulse 96 Oximetry - Reevaluation(s) Reevaluation #1: 10/25/21 02:10 Patient's trop was elevated plan for admission. Heparin drip was started. ED Medical Decision Making - Lab Data Result diagrams: 10/25/21 03:20 10/24/21 23:26 - EKG Data -: EKG Interpreted by Me EKG shows normal: sinus rhythm Rate: normal No standard instances Rhythm: PVC's ST segment elevation in: v2, v3 T wave inversions noted in: aVL - Medical Decision Making Is a 61-year-old male presented emergency department complaint of chest pain. Patient has elevated heart score. Patient has had a recent NSTEMI. Plan for EKG, serial EKGs, serial troponins, chest x-ray, basic labs. Pending work-up patient may require admission for NSTEMI versus ACS. Patient's dimer is elevated but age-adjusted this is normal. He has no history of DVT or PE. Critical care attestation.: If time is entered above; I have spent that time in minutes in the direct care of this critically ill patient, excluding procedure time. ED Disposition Clinical Impression: NSTEMI (non-ST elevated myocardial infarction) Disposition: ADMITTED INPATIENT Is pt being admited?: Yes Does the pt Need Aspirin: Yes Condition: Stable
[2021-10-25] MEDS ORDERED: ASPIRIN 81 MG TAB CHEW PO ONE (01:42)
[2021-10-25] MEDS ORDERED: MORPHINE 4 MG/1 ML INJ IV ONE (01:43)
[2021-10-25] MEDS ORDERED: HEPARIN 10,000 UNITS/10 ML VIAL IV ONE (02:50)
[2021-10-25] MEDS ORDERED: HEPARIN 10,000 UNITS/10 ML VIAL IV PRN (02:50)
[2021-10-25] MEDS ORDERED: HEPARIN/ 0.45% NACL DRIP 25,000 UNIT/500 ML BAG IV SCH (03:00)
[2021-10-25 03:01] LABS: Chol/HDL Ratio 2.65 %
[2021-10-25 03:46] LABS: Hematocrit 36.1 % (35.5-45.6); Hemoglobin 11.6 gm/dl (11.8-15.2)
[2021-10-25 03:57] LABS: INR 0.93 (0.87-1.13); Partial Thromboplastin Time 28.3 Sec. (24.2-36.6)
[2021-10-25] MEDS ORDERED: traMADol 50 MG TAB PO PRN (04:01)
[2021-10-25] MEDS ORDERED: ACETAMINOPHEN 325 MG TAB PO PRN (04:01)
--- NOTE | 2021-10-25 04:09 | History and Physical Report ---
History of Present Illness Date of examination: 10/25/21 Date of admission: 10/25/21 Chief complaint: Chest pain History of present illness: 61-year-old male with past medical history of recent NSTEMI , ischemic cardiomyopathy, hypertension, history of cardiac a stent who presents emergency department complaint of chest pain. Patient reports that he has substernal chest pain that is pressure-like in nature. He also has some right hand numbness. He reports that his pain is currently 8 out of 10. He notes that he has had diaphoresis but no nausea. He states that he does have stents placed and states he has a cardiology at this hospital. Patient states the pain started at 6 PM while he was sitting. Work-up in the emergency room today, chest x-ray mild congestion. Lab reveals elevated troponin of 0.329. Patient has been started on heparin drip and being admitted for NSTEMI. Past History Past Medical History: acute PR, CAD, hypertension, other ((12/23/20 cardiac cath, 10/16/21 NSTEMI)) Past Surgical History: Other (Cardiac stent, left knee pain left knee surgery) Social history: smoking Family history: hypertension Medications and Allergies Allergies Allergy/AdvReac Type Severity Reaction Status Date / Time No Known Allergies Allergy Verified 10/17/21 02:20 Home Medications Medication Instructions Recorded Confirmed Last Taken Type Famotidine [Pepcid] 20 mg PO BID tablet 06/14/21 10/18/21 Unknown Rx Aspirin EC [Halfprin EC] 81 mg PO QDAY 30 Days #30 tablet 10/18/21 Unknown Rx AtorvaSTATin [Lipitor] 40 mg PO QHS 30 Days #30 tablet 10/18/21 Unknown Rx Furosemide [Lasix TAB] 20 mg PO QDAY 30 Days #30 tablet 10/18/21 Unknown Rx ISOSORBIDE MONOnitrate [Monoket] 20 mg PO QDAY 30 Days #30 tablet 10/18/21 Unknown Rx Nitroglycerin [Nitrostat] 0.4 mg SL Q5M PRN 30 Days #30 10/18/21 Unknown Rx tablet Ranolazine ER [Ranexa ER] 500 mg PO BID 30 Days #60 tablet 10/18/21 Unknown Rx Spironolactone [Aldactone] 25 mg PO QDAY 30 Days #30 tablet 10/18/21 Unknown Rx Ticagrelor [Brilinta] 90 mg PO BID 30 Days #60 tablet 10/18/21 Unknown Rx carvediloL [Coreg] 3.125 mg PO BID 30 Days #60 tablet 10/18/21 Unknown Rx lisinopriL [Zestril TAB] 5 mg PO QDAY 30 Days #30 tablet 10/18/21 Unknown Rx Active Meds: Active Medications Heparin Sodium (Porcine) (Heparin 10,000 Units/10 Ml Vial) 3,100 unit 40 unit/kg (3100 unit) IV Q6H PRN PRN Reason: Anti-Xa Assay < 0.1 units/ml Heparin Sodium/Sodium Chloride (Heparin/ 0.45% Nacl-25,000 Unit/500 Ml) 25,000 unit in 500 mls @ 20 mls/hr IV TITRATE KAVITHA; Protocol Last Admin: 10/25/21 03:26 Dose: 1,000 units/hr, 20 mls/hr Review of Systems All systems: negative Cardiovascular: shortness of breath, dyspnea on exertion Exam - Constitutional Vitals: Temp Pulse Resp BP Pulse Ox 98.4 F 103 H 19 117/81 96 10/24/21 23:13 10/25/21 02:30 10/25/21 02:30 10/25/21 02:30 10/25/21 02:30 General appearance: Present: no acute distress, well-nourished - EENT Eyes: Present: PERRL ENT: hearing intact, clear oral mucosa - Neck Neck: Present: supple, normal ROM - Respiratory Respiratory effort: normal Respiratory: bilateral: CTA - Cardiovascular Heart Sounds: Present: S1 & S2. Absent: rub, click - Extremities Extremities: pulses symmetrical, No edema Peripheral Pulses: within normal limits - Abdominal General gastrointestinal: Present: soft, non-tender, non-distended, normal bowel sounds Male genitourinary: Present: normal - Integumentary Integumentary: Present: clear, warm, dry - Musculoskeletal Musculoskeletal: gait normal, strength equal bilaterally - Psychiatric Psychiatric: appropriate mood/affect, intact judgment & insight - Neurologic Neurologic: CNII-XII intact, moves all extremities HEART Score - HEART Score EKG: Non-specific Age: 45-65 Risk factors: > 3 risk factors or hx of atherosclerotic disease Troponin: Troponin T 0.329 ng/mL (0.00-0.029) H* 10/25/21 01:49 Troponin: < normal limit Results - Labs CBC & Chem 7: 10/25/21 03:20 10/24/21 23:26 Labs: Laboratory Last Values WBC 6.6 K/mm3 (4.5-11.0) 10/24/21 23: RBC 3.94 M/mm3 (3.65-5.03) 10/24/21 23:26 Hgb 11.6 gm/dl (11.8-15.2) L 10/25/21 03:20 Hct 36.1 % (35.5-45.6) 10/25/21 03:20 MCV 94 fl (84-94) 10/24/21 23:26 MCH 30 pg (28-32) 10/24/21 23: MCHC 32 % (32-34) 10/24/21 23: RDW 16.7 % (13.2-15.2) H 10/24/21 23:26 Plt Count 165 K/mm3 (140-440) 10/25/21 03:20 Lymph % (Auto) 32.5 % (13.4-35.0) 10/24/21 23: [place] % (Auto) 7.1 % (0.0-7.3) 10/24/21 23: Eos % (Auto) 8.6 % (0.0-4.3) H 10/24/21 23: Baso % (Auto) 0.7 % (0.0-1.8) 10/24/21 23: Lymph # (Auto) 2.1 K/mm3 (1.2-5.4) 10/24/21 23: [place] # (Auto) 0.5 K/mm3 (0.0-0.8) 10/24/21 23: Eos # (Auto) 0.6 K/mm3 (0.0-0.4) H 10/24/21 23: Baso # (Auto) 0.0 K/mm3 (0.0-0.1) 10/24/21 23: Seg Neutrophils % 51.1 % (40.0-70.0) 10/24/21 23:26 Seg Neutrophils # 3.4 K/mm3 (1.8-7.7) 10/24/21 23: PT 13.5 Sec. (12.2-14.9) 10/25/21 03:20 INR 0.93 (0.87-1.13) 10/25/21 03:20 APTT 28.3 Sec. (24.2-36.6) 10/25/21 03:20 D-Dimer 354.78 ng/mlDDU (0-234) H 10/24/21 23:26 Sodium 142 mmol/L (137-145) 10/24/21 23:26 Potassium 3.6 mmol/L (3.6-5.0) 10/24/21 23:26 Chloride 106.0 mmol/L (98-107) 10/24/21 23:26 Carbon Dioxide 22 mmol/L (22-30) 10/24/21 23:26 Anion Gap 18 mmol/L 10/24/21 23:26 BUN 18 mg/dL (9-20) 10/24/21 23:26 Creatinine 1.5 mg/dL (0.8-1.3) H 10/24/21 23:26 Estimated GFR 58 ml/min 10/24/21 23:26 BUN/Creatinine Ratio 12 % 10/24/21 23:26 Glucose 122 mg/dL (75-100) H 10/24/21 23:26 Calcium 9.1 mg/dL (8.4-10.2) 10/24/21 23:26 Magnesium 1.80 mg/dL (1.7-2.3) 10/25/21 01:49 Total Bilirubin 0.60 mg/dL (0.1-1.2) 10/24/21 23:26 AST 34 units/L (5-40) 10/24/21 23:26 ALT 21 units/L (7-56) 10/24/21 23:26 Alkaline Phosphatase 104 units/L (35-129) 10/24/21 23:26 Troponin T 0.329 ng/mL (0.00-0.029) H* 10/25/21 01:49 NT-Pro-B Natriuret Pep 6150 pg/mL (0-900) H 10/25/21 01:49 Total Protein 7.0 g/dL (6.3-8.2) 10/24/21 23:26 Albumin 4.1 g/dL (3.9-5) 10/24/21 23:26 Albumin/Globulin Ratio 1.4 % 10/24/21 23:26 Triglycerides 112 mg/dL (2-149) 10/25/21 01:49 Cholesterol 138 mg/dL (50-199) 10/25/21 01:49 LDL Cholesterol Direct 71 mg/dL (50-130) 10/25/21 01:49 HDL Cholesterol 52 mg/dL (40-59) 10/25/21 01:49 Cholesterol/HDL Ratio 2.65 % 10/25/21 01:49 - Imaging and Cardiology Chest x-ray: report reviewed Assessment and Plan VTE prophylaxis?: Chemical Plan of care discussed with patient/family: Yes - Patient Problems (1) NSTEMI (non-ST elevated myocardial infarction) Current Visit: Yes Status: Acute Plan to address problem: Admit the patient to the medical telemetry. Aspirin 81 mg p.o. daily. Brilinta 90 mg p.o. twice daily. Heparin drip. Nitroglycerin as needed. Lipitor 40 mg p.o. daily. Serial cardiac enzymes. Cardiology evaluation (2) Coronary artery disease Current Visit: No Status: Acute Qualifiers: Coronary Disease-Associated Artery/Lesion type: [place] artery [place] vs. transplanted heart: mo[place] heart Plan to address problem: Aspirin 81 mg p.o. daily. Brilinta 90 mg p.o. twice daily. Heparin drip. Nitroglycerin as needed. Lipitor 40 mg p.o. daily. Serial cardiac enzymes. Cardiology evaluation (3) CHF (congestive heart failure) Current Visit: No Status: Chronic Plan to address problem: Stable. Fluid restriction. Lasix 20 milligrams p.o. daily. Cardiology evaluat ion (4) Hypertension Current Visit: No Status: Chronic Qualifiers: Hypertension type: primary hypertension Qualified Code(s): I10 - Essential (primary) hypertension Plan to address problem: Coreg 3.125 mg p.o. twice daily. Lisinopril 5 mg p.o. daily. Spironolactone 25 mg p.o. daily. We will continue the home medication. We will monitor the patient closely (5) Tobacco abuse Current Visit: No Status: Chronic Plan to address problem: We counseled the patient regarding quitting smoking. We will put the patient on nicotine patch if needed (6) DVT prophylaxis Current Visit: No Status: Acute Plan to address problem: Heparin drip for DVT prophylaxis. Pepcid 20 mg p.o. twice daily for GI prophylaxis. Patient is a full code
[2021-10-25] MEDS: NITROGLYCERIN 0.4 MG TAB SUBL SL PRN ×2 (06:22→15:36)
[2021-10-25] MEDS ORDERED: HEPARIN 5,000 UNIT/1 ML VIAL SUB-Q SCH (10:00)
[2021-10-25] MEDS ORDERED: LISINOPRIL 5 MG TAB PO SCH (10:00)
[2021-10-25] MEDS ORDERED: FUROSEMIDE 20 MG TAB PO SCH ×2 (10:00)
--- NOTE | 2021-10-25 10:08 | Electrocardiograph Report ---
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 : 1960 Requested By: MYCHAL BERNARD Order Number: [id number] Reading MD: Vince Scherer Measurements Intervals [place] Rate: 94 P: 68 KS: 148 QRS: -49 QRSD: 102 T: 88 QT: 381 QTc: 476 Interpretive Statements Sinus rhythm Ventricular premature complex Probable left atrial enlargement Left anterior fascicular block Probable anteroseptal infarct, recent Compared to ECG 10/18/2021 07:28:39 Ventricular premature complex(es) now present Left anterior fascicular block now present Left-axis deviation no longer present Myocardial infarct finding still present Electronically Signed On 10-25-2021 10:07:46 EDT by Vince Scherer
--- NOTE | 2021-10-25 10:09 | Electrocardiograph Report ---
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
[2021-10-25] MEDS: ASPIRIN EC 81 MG TAB PO SCH (10:37)
[2021-10-25] MEDS ORDERED: SODIUM CHLORIDE 0.9% 500 ML 500 ML ONE (11:21)
--- NOTE | 2021-10-25 11:35 | Consultation ---
History of Present Illness Consult date: 10/25/21 Consult reason: chest pain History of present illness: The patient is a 61-year-old man with an extensive cardiac history beginning November 2020 when he presented here with an acute anterior ST elevation infarct, and underwent a successful primary angioplasty and stenting of the proximal LAD 100% occlusion. In addition, there was diffuse distal disease of the right coronary artery recommended for medical therapy. His residual left ventricular ejection fraction was severely impaired at 15 to 20%. 4 months ago, he underwent implantation of an ICD at [facility], which had to be explanted several weeks later due to the device infection. He was then placed on guideline medical therapy for his residual cardiomyopathy. He presents to the hospital at this time with chest pain, which has been ongoing for 24 to 48 hours. He was seen in the emergency room last evening, evaluated and admitted with a diagnosis of "non-STEMI", and this morning cardiology consultation was requested. At the time of my evaluation, the patient still complains of intermittent chest pain, he is on heparin infusion. My review of the ECGs from his emergency room visit yesterday show QS complexes in the anterior wall, with ST elevation and some reciprocal ST depression in the inferior leads. In comparison with his previous ECG with his last visit here 3 months ago, the ST elevations appear new and may suggest the presence of an acute reocclusion of the LAD at the time of his presentation to the emergency room yesterday. Cardiology was not consulted for a STEMI during his emergency room course. The patient maintains that he has been fully compliant with his baby aspirin and Brilinta regimen. Past History Past Medical History: acute MO, CAD, heart failure, hypertension Past Surgical History: Other (Cardiac stent, left knee pain left knee surgery) Social history: smoking Family history: hypertension Medications and Allergies Allergies Allergy/AdvReac Type Severity Reaction Status Date / Time No Known Allergies Allergy Verified 10/17/21 02:20 Home Medications Medication Instructions Recorded Confirmed Last Taken Type Famotidine [Pepcid] 20 mg PO BID tablet 06/14/21 10/25/21 Unknown Rx Aspirin EC [Halfprin EC] 81 mg PO QDAY 30 Days #30 tablet 10/18/21 10/25/21 Unknown Rx AtorvaSTATin [Lipitor] 40 mg PO QHS 30 Days #30 tablet 10/18/21 10/25/21 Unknown Rx Furosemide [Lasix TAB] 20 mg PO QDAY 30 Days #30 tablet 10/18/21 10/25/21 Unknown Rx ISOSORBIDE MONOnitrate [Monoket] 20 mg PO QDAY 30 Days #30 tablet 10/18/21 10/25/21 Unknown Rx Nitroglycerin [Nitrostat] 0.4 mg SL Q5M PRN 30 Days #30 10/18/21 10/25/21 Unknown Rx tablet Ranolazine ER [Ranexa ER] 500 mg PO BID 30 Days #60 tablet 10/18/21 10/25/21 Unknown Rx Spironolactone [Aldactone] 25 mg PO QDAY 30 Days #30 tablet 10/18/21 10/25/21 Unknown Rx Ticagrelor [Brilinta] 90 mg PO BID 30 Days #60 tablet 10/18/21 10/25/21 Unknown Rx carvediloL [Coreg] 3.125 mg PO BID 30 Days #60 tablet 10/18/21 10/25/21 Unknown Rx lisinopriL [Zestril TAB] 5 mg PO QDAY 30 Days #30 tablet 10/18/21 10/25/21 Unknown Rx Active Meds: Active Medications Acetaminophen (Acetaminophen 325 Mg Tab) 650 mg PO Q6H PRN PRN Reason: Pain, Mild (1-3) Aspirin (Aspirin Ec 81 Mg Tab) 81 mg PO QDAY [facility] Last Admin: 10/25/21 10:37 Dose: 81 mg Atorvastatin Calcium (Atorvastatin 40 Mg Tab) 40 mg PO QHS [facility] Carvedilol (Carvedilol 3.125 Mg Tab) 3.125 mg PO BID@0800,1700 [facility] Furosemide (Furosemide 20 Mg Tab) 20 mg PO 0600,1800 [facility] Heparin Sodium/Sodium Chloride (Heparin/ 0.45% Nacl-25,000 Unit/500 Ml) 25,000 unit in 500 mls @ 20 mls/hr IV TITRATE KAVITHA; Protocol Last Admin: 10/25/21 03:26 Dose: 1,000 units/hr, 20 mls/hr Isosorbide Mononitrate (Isosorbide Mononitrate 20 Mg Tab) 20 mg PO QDAY [facility] Lisinopril (Lisinopril 5 Mg Tab) 5 mg PO QDAY [facility] Morphine Sulfate (Morphine 2 Mg/1 Ml Inj) 2 mg IV Q5MIN PRN PRN Reason: Chest Pain unrelieved by NTG Nitroglycerin (Nitroglycerin 0.4 Mg Tab Subl) 0.4 mg SL Q5M PRN PRN Reason: Chest Pain Last Admin: 10/25/21 06:22 Dose: 0.4 mg Ranolazine (Ranolazine Er 500 Mg Tab 12hr) 500 mg PO BID KAVITHA Sodium Chloride (Sodium Chloride 0.9% 10 Ml Flush Syringe) 10 ml IV PRN PRN PRN Reason: LINE FLUSH Spironolactone (Spironolactone 25 Mg Tab) 25 mg PO QDAY KAVITHA Ticagrelor (Ticagrelor 90 Mg Tab) 90 mg PO BID KAVITHA Tramadol HCl (Tramadol 50 Mg Tab) 50 mg PO Q6H PRN PRN Reason: Pain, Moderate (4-6) Review of Systems Cardiovascular: chest pain, shortness of breath, no orthopnea, no palpitations, no rapid/irregular heart beat, no edema, no syncope, no lightheadedness Physical Examination Vital Signs Temp Pulse Resp BP Pulse Ox 98.4 F 102 H 26 H 128/68 95 10/24/21 23:13 10/24/21 23:13 10/24/21 23:13 10/24/21 23:13 10/24/21 23:13 General appearance: mild distress HEENT: Positive: PERRL Neck: Positive: neck supple Cardiac: Positive: Reg Rate and Rhythm Lungs: Positive: clear to auscultation Neuro: Positive: Grossly Intact Abdomen: Positive: Soft Male genitourinary: Positive: deferred Skin: Positive: Clear Extremities: Absent: edema Results 10/25/21 03:20 10/24/21 23:26 Cardiac Enzymes 10/24/21 Range/Units 23:26 AST 34 (5-40) units/L Coagulation 10/24/21 10/25/21 Range/Units 23:26 03:20 PT 13.1 13.5 (12.2-14.9) Sec. INR 0.90 0.93 (0.87-1.13) APTT 28.8 28.3 (24.2-36.6) Sec. Lipids 10/25/21 Range/Units 01:49 Triglycerides 112 (2-149) mg/dL Cholesterol 138 (50-199) mg/dL HDL Cholesterol 52 (40-59) mg/dL Cholesterol/HDL Ratio 2.65 % CBC 10/24/21 10/25/21 Range/Units 23:26 03:20 WBC 6.6 (4.5-11.0) K/mm3 RBC 3.94 (3.65-5.03) M/mm3 Hgb 11.9 11.6 L (11.8-15.2) gm/dl Hct 36.9 36.1 (35.5-45.6) % Plt Count 168 165 (140-440) K/mm3 Lymph # (Auto) 2.1 (1.2-5.4) K/mm3 [place] # (Auto) 0.5 (0.0-0.8) K/mm3 Eos # (Auto) 0.6 H (0.0-0.4) K/mm3 Baso # (Auto) 0.0 (0.0-0.1) K/mm3 Comprehensive Metabolic Panel 10/24/21 Range/Units 23:26 Sodium 142 (137-145) mmol/L Potassium 3.6 (3.6-5.0) mmol/L Chloride 106.0 (98-107) mmol/L Carbon Dioxide 22 (22-30) mmol/L BUN 18 (9-20) mg/dL Creatinine 1.5 H (0.8-1.3) mg/dL Glucose 122 H (75-100) mg/dL Calcium 9.1 (8.4-10.2) mg/dL AST 34 (5-40) units/L ALT 21 (7-56) units/L Alkaline Phosphatase 104 (35-129) units/L Total Protein 7.0 (6.3-8.2) g/dL Albumin 4.1 (3.9-5) g/dL EKG interpretations - Telemetry EKG Rhythm: Sinus Rhythm (With anterior QRS complexes with ST elevation and some subtle reciprocal inferior ST depressions) Assessment and Plan - Patient Problems (1) Acute coronary syndrome Current Visit: Yes Status: Acute Plan to address problem: 61-year-old man with coronary artery disease, admitted from the emergency room with chest pain and a diagnosis of non-STEMI. Review of his ECGs from yesterday suggest more likely an acute reocclusion of the LAD, which was stented 9 months ago, patient states he has been fully compliant with his aspirin and Brilinta. Cardiology was not consulted to evaluate the patient for NSTEMI at the time of his ER presentation yesterday. We will immediately take the patient to the [facility] for what appears to be postinfarction angina.
[2021-10-25] MEDS ORDERED: HEPARIN/NS 5000 UNIT/500ML 1,000 ML IR ONE (11:48)
[2021-10-25] MEDS ORDERED: NITROGLYCERIN SYRINGE 3 ML ONE (11:49)
[2021-10-25] MEDS ORDERED: VERAPAMIL 5 MG/2 ML INJ ONE (11:49)
[2021-10-25] MEDS ORDERED: fentaNYL 100 MCG/2 ML INJ ONE (11:52)
[2021-10-25] MEDS ORDERED: MIDAZOLAM 2 MG/2 ML INJ ONE (11:52)
[2021-10-25] MEDS ORDERED: LIDOCAINE (1%) 10 MG/1 ML VIAL 20 ML MDV ONE (11:56)
[2021-10-25] MEDS: HEPARIN 10,000 UNITS/10 ML VIAL ONE ×3 (12:03→12:47)
--- NOTE | 2021-10-25 12:17 | Progress Note ---
Assessment and Plan Assessment and plan: History of present illness: 61-year-old male with past medical history of recent NSTEMI , ischemic cardiomyopathy, hypertension, history of cardiac a stent who presents emergency department complaint of chest pain. Patient reports that he has substernal chest pain that is pressure-like in nature. He also has some right hand numbness. He reports that his pain is currently 8 out of 10. He notes that he has had diaphoresis but no nausea. He states that he does have stents placed and states he has a cardiology at this hospital. Patient states the pain started at 6 PM while he was sitting. Work-up in the emergency room today, chest x-ray mild congestion. Lab reveals elevated troponin of 0.329. Patient has been started on heparin drip and being admitted for NSTEMI. Hospital Course: 10/25: Hold nettie- i due to renal function. EKG demonstrates QS waves, cardiology believes possible re-occluded LAD. plan for cath today will follow up post cath. Recommend post cath 500 cc bolus. Renal panel ordered for tomorrow. Assessment and Plan: #NSTEMI #Acute coronary syndrome #CAD -Has a history of cardiac stents EKG demonstrated QS waves, troponin 0.329 - not an active chest pain by the time of my encounter suspect infarct is completed Cardiology has emergently elected to take patient to [facility] [employer] [facility] we will follow-up findings Recommend guideline directed therapy with aspirin, Brilinta, BB, nettie-i and statin, imdur, ranexa -Cardiology consulted on admission, Dr. Sands following #Chronic systolic heart failure #Heart failure with reduced ejection fraction - 05/2021 ECHO EF:15-20% Chest x-ray demonstrates pulmonary vascular congestion - GDMT: lasix, spironalactone, coreg. hold lisinopril #Hypertension -Resume all home medications except for lisinopril Blood pressure well controlled thus far this admission #Acute kidney injury - Admission Cr: 1.4, Baseline Cr: 1.0 - avoid nephrotoxic agents, hold nettie-i at this time - monitor I/O's - renal adjust medications - daily renal profile -Would recommend 500 cc bolus pre and post-cath based on Manuel Score -If renal function worsens, will consult nephrology #Nicotine Abuse +15 min smoking/nicotine abuse cessation counseling. Advised on quitting strateg ies as well as benefits to overall health. #Advance care planning Disease education conducted, care plan discussed, diagnoses discussed, prognosis discussed, patient is full code, patient acknowledges understanding and agree with care plan, discussed about patient clinical course and answered all q uestions to satisfaction. +30 minutes. +30 minutes. Disposition Plan: tele Total Time Spent with Patient (Minutes): 45 History Interval history: No acute complaints on encounter this morning. Chest pain has basically resolved. He no longer feels shortness of breath. Patient states that he was experiencing chest pain yesterday. He states that he was compliant with aspirin and Brilinta. He has been in and out of the hospital several times between [facility] and [facility] for similar chest pain symptoms. Hospitalist Physical - Physical exam Narrative exam: Physical Exam: VITAL SIGNS: Reviewed. GENERAL: The patient appears normally developed, Vital signs as documented. HEAD: No signs of head trauma. EYES: Pupils are equal. Extraocular motions intact. EARS: Hearing grossly intact. MOUTH: Oropharynx is normal. NECK: No adenopathy, no JVD. CHEST: Chest with clear breath sounds bilaterally. No wheezes, rales, or rhonchi. CARDIAC: Regular rate and rhythm. S1 and S2, without murmurs, gallops, or rubs. VASCULAR: No Edema. Peripheral pulses normal and equal in all extremities. ABDOMEN: Soft, non tender and non distended. No rebound or guarding, and no masses palpated. Bowel Sounds normal. MUSCULOSKELETAL: Good range of motion of all major joints. Extremities without clubbing, cyanosis or edema. NEUROLOGIC EXAM: Alert and oriented x 4. no focal sensory or strength deficits. PSYCHIATRIC: Mood normal. SKIN: detail exam as documented in skin assessment - Constitutional Vitals: Temp Pulse Resp BP Pulse Ox 97.4 F L 85 20 113/75 95 10/25/21 06:08 10/25/21 06:29 10/25/21 06:08 10/25/21 06:28 10/25/21 06:30 General appearance: Present: mild distress HEART Score - HEART Score EKG: Non-specific Age: 45-65 Risk factors: > 3 risk factors or hx of atherosclerotic disease Troponin: Troponin T 0.329 ng/mL (0.00-0.029) H* 10/25/21 01:49 Troponin: > 3x normal limit Results - Labs CBC & Chem 7: 10/25/21 03:20 07/27/22 23:26 Labs: Laboratory Last Values WBC 6.6 K/mm3 (4.5-11.0) 10/24/21 23: RBC 3.94 M/mm3 (3.65-5.03) 10/24/21 23:26 Hgb 11.6 gm/dl (11.8-15.2) L 10/25/21 03:20 Hct 36.1 % (35.5-45.6) 10/25/21 03:20 MCV 94 fl (84-94) 10/24/21 23:26 MCH 30 pg (28-32) 10/24/21 23: MCHC 32 % (32-34) 10/24/21 23: RDW 16.7 % (13.2-15.2) H 10/24/21 23:26 Plt Count 165 K/mm3 (140-440) 10/25/21 03:20 Lymph % (Auto) 32.5 % (13.4-35.0) 10/24/21 23: [place] % (Auto) 7.1 % (0.0-7.3) 10/24/21 23: Eos % (Auto) 8.6 % (0.0-4.3) H 10/24/21 23: Baso % (Auto) 0.7 % (0.0-1.8) 10/24/21 23: Lymph # (Auto) 2.1 K/mm3 (1.2-5.4) 10/24/21 23: [place] # (Auto) 0.5 K/mm3 (0.0-0.8) 10/24/21 23: Eos # (Auto) 0.6 K/mm3 (0.0-0.4) H 10/24/21 23: Baso # (Auto) 0.0 K/mm3 (0.0-0.1) 10/24/21 23: Seg Neutrophils % 51.1 % (40.0-70.0) 10/24/21 23: Seg Neutrophils # 3.4 K/mm3 (1.8-7.7) 10/24/21 23: PT 13.5 Sec. (12.2-14.9) 10/25/21 03:20 INR 0.93 (0.87-1.13) 10/25/21 03:20 APTT 28.3 Sec. (24.2-36.6) 10/25/21 03:20 D-Dimer 354.78 ng/mlDDU (0-234) H 10/24/21 23:26 Sodium 142 mmol/L (137-145) 10/24/21 23:26 Potassium 3.6 mmol/L (3.6-5.0) 10/24/21 23:26 Chloride 106.0 mmol/L (98-107) 10/24/21 23:26 Carbon Dioxide 22 mmol/L (22-30) 10/24/21 23:26 Anion Gap 18 mmol/L 10/24/21 23:26 BUN 18 mg/dL (9-20) 10/24/21 23:26 Creatinine 1.5 mg/dL (0.8-1.3) H 10/24/21 23:26 Estimated GFR 58 ml/min 10/24/21 23:26 BUN/Creatinine Ratio 12 % 10/24/21 23:26 Glucose 122 mg/dL (75-100) H 10/24/21 23:26 Calcium 9.1 mg/dL (8.4-10.2) 10/24/21 23:26 Magnesium 1.80 mg/dL (1.7-2.3) 10/25/21 01:49 Total Bilirubin 0.60 mg/dL (0.1-1.2) 10/24/21 23:26 AST 34 units/L (5-40) 10/24/21 23:26 ALT 21 units/L (7-56) 10/24/21 23:26 Alkaline Phosphatase 104 units/L (35-129) 10/24/21 23:26 Troponin T 0.329 ng/mL (0.00-0.029) H* 10/25/21 01:49 NT-Pro-B Natriuret Pep 6150 pg/mL (0-900) H 10/25/21 01:49 Total Protein 7.0 g/dL (6.3-8.2) 10/24/21 23:26 Albumin 4.1 g/dL (3.9-5) 10/24/21 23:26 Albumin/Globulin Ratio 1.4 % 10/24/21 23:26 Triglycerides 112 mg/dL (2-149) 10/25/21 01:49 Cholesterol 138 mg/dL (50-199) 10/25/21 01:49 LDL Cholesterol Direct 71 mg/dL (50-130) 10/25/21 01:49 HDL Cholesterol 52 mg/dL (40-59) 10/25/21 01:49 Cholesterol/HDL Ratio 2.65 % 10/25/21 01:49 Active Medications - Current Medications Current Medications: Generic Name Dose Route Start Last Admin Trade Name Freq PRN Reason Stop Dose Admin Acetaminophen 650 mg 10/25/21 04:01 Acetaminophen 325 Mg Tab PO Q6H PRN Pain, Mild (1-3) Aspirin 81 mg 10/25/21 10:00 10/25/21 10:37 Aspirin Ec 81 Mg Tab PO 81 mg QDAY [facility] Administration Atorvastatin Calcium 40 mg 10/25/21 22:00 Atorvastatin 40 Mg Tab PO QHS [facility] Carvedilol 3.125 mg 10/25/21 08:00 Carvedilol 3.125 Mg Tab PO BID@0800,1700 [facility] Furosemide 20 mg 10/25/21 10:00 Furosemide 20 Mg Tab PO 0600,1800 [facility] Heparin Sodium/Sodium Chloride 25,000 unit in 500 mls @ 20 mls/hr 10/25/21 03:00 10/25/21 03:26 Heparin/ 0.45% Nacl-25,000 Unit/500 Ml IV 1,000 units/hr TITRATE KAVITHA 20 mls/hr Administration Protocol 1,000 UNITS/HR Isosorbide Mononitrate 20 mg 10/25/21 10:00 Isosorbide Mononitrate 20 Mg Tab PO QDAY [facility] Lisinopril 5 mg 10/25/21 10:00 Lisinopril 5 Mg Tab PO QDAY [facility] Morphine Sulfate 2 mg 10/25/21 04:01 Morphine 2 Mg/1 Ml Inj IV Q5MIN PRN Chest Pain unrelieved by NTG Nitroglycerin 0.4 mg 10/25/21 04:01 10/25/21 06:22 Nitroglycerin 0.4 Mg Tab Subl SL 0.4 mg Q5M PRN Administration Chest Pain Ranolazine 500 mg 10/25/21 10:00 Ranolazine Er 500 Mg Tab 12hr PO BID [facility] Sodium Chloride 10 ml 10/25/21 04:01 Sodium Chloride 0.9% 10 Ml Flush Syringe IV PRN PRN LINE FLUSH Spironolactone 25 mg 10/25/21 10:00 Spironolactone 25 Mg Tab PO QDAY KAVITHA Ticagrelor 90 mg 10/25/21 10:00 Ticagrelor 90 Mg Tab PO BID K[facility]ITHA Tramadol HCl 50 mg 10/25/21 04:01 Tramadol 50 Mg Tab PO Q6H PRN Pain, Moderate (4-6)
[2021-10-25] MEDS ORDERED: TIROFIBAN/NS 12,500 MCG/250 ML BAG IV ONE (12:22)
[2021-10-25] MEDS: SPIRONOLACTONE 25 MG TAB PO SCH (12:23)
[2021-10-25] MEDS: carvediloL 3.125 MG TAB PO SCH ×2 (12:23→16:15)
[2021-10-25] MEDS: TICAGRELOR 90 MG TAB PO SCH ×2 (12:24→21:12)
[2021-10-25] MEDS: RANOLAZINE ER 500 MG TAB 12HR PO SCH ×2 (12:25→21:12)
--- NOTE | 2021-10-25 12:58 | Event Note ---
Date: 10/25/21 Cardiac catheterization was completed via the right radial approach, no complications. We found, a greater than 99% stenosis of the proximal LAD, representing occlusive proximal border restenosis of the previous stent implanted 9 months ago. We treated the new lesion with additional 4.0 mm drug-eluting stent with excellent angiographic result. Patient will be treated with Aggrastat for 18 hours, and continued dual antiplatelet therapy with aspirin and Plavix. Additional guideline directed medical therapy for underlying ischemic cardiomyopathy.
[2021-10-25] MEDS ORDERED: SODIUM CHLORIDE 0.9% 1000 ML 1,000 ML IV SCH (13:00)
[2021-10-25] MEDS ORDERED: TIROFIBAN/NS 12,500 MCG/250 ML BAG IV SCH (13:00)
[2021-10-25] MEDS ORDERED: TICAGRELOR 90 MG TAB ONE (13:16)
--- NOTE | 2021-10-25 13:30 | Cardiac Catherization Report ---
DATE OF SERVICE: 10/25/2021 CARDIAC CATHETERIZATION AND CORONARY ANGIOPLASTY REPORT REASON FOR PROCEDURE: The patient is a 61-year-old man with a history of multivessel coronary artery disease and severe ischemic cardiomyopathy. He underwent coronary stent placement to the proximal to mid LAD 9 months ago for an acute STEMI. He presented to the hospital at this time with chest pain associated with abnormal ECG findings of acute arterial injury. We recommended immediate cardiac catheterization. PROCEDURES: 1. Left heart catheterization. 2. Selective left and right coronary angiography. 3. Coronary angioplasty and stenting of the proximal LAD. 4. Sedation time start 12:05, end 12:37. DESCRIPTION OF PROCEDURE: The patient was prepped and draped in a sterile fashion after informed consent. The right radial artery was entered using Seldinger technique followed by placement of a 6-Upper [place] hydrophilic sheath. A routine radial cocktail was administered via the sheath. We then performed right coronary angiography using a #4 right Rich catheter. Following this, we exchanged for a #3.0 XB guiding catheter, which was advanced to the left coronary ostium. Angiograms of the left coronary vessels were taken. The angiograms were reviewed. CORONARY ANGIOGRAPHY: The left main coronary artery contained mild narrowing with an eccentric 20-30% stenosis in its distal segment before its bifurcation into a large LAD and a small caliber circumflex. The LAD as previously reported contained a stent in its proximal to mid segment, implanted 9 months ago. There was severe 99% stenosis of the LAD at the proximal border of the previous stents. The 99% lesion was associated with delayed ANAYA 2 antegrade flow. The appearance of the lesion was that of proximal stent border restenosis. The angiographic appearance was not that of late stent thrombosis. The circumflex was a small caliber system as described, and was notable for a vybiw-[id number] sized anterolateral obtuse marginal, which was free of significant disease. Following that, the AV groove circumflex was then completely occluded. This was a chronic total occlusion with faint left to left collateralization of a hnqpx-[id number] caliber mid obtuse marginal. The right coronary artery was a large ectatic vessel that was dominant. There was a 60-70% stenosis of the mid segment, followed by another long 60-70% stenosis of the proximal segment of the posterior descending branch. More distally, the vessel was completely occluded before a medium sized terminal posterolateral branch. This terminal branch filled faintly by right to right collaterals. CORONARY ANGIOPLASTY: After review of the angiograms, the infarct lesion was the severe proximal border restenosis of the LAD stent. We selected a 0.014 inch [employer] 50 guidewire, directed into the LAD across the lesional segment. In a primary stenting maneuver, we deployed a 4.0 x 15 mm drug-eluting stent, covering the entire lesional segment and overlapping into the previous stent. The new stent was deployed to optimal pressures. Following stenting, there was an excellent angiographic result, zero residual stenosis and pentecostal of ANAYA-3 flow. The patient tolerated the procedure well and there were no complications. The catheters and wires were removed, sheath removed and hemostasis achieved using a TR band. The patient was returned to the postprocedure unit in stable condition. CONCLUSION: 1. The patient was admitted with acute coronary syndrome. 2. Cardiac catheterization reveals critical stenosis of the proximal LAD, representing occlusive proximal border restenosis of the previously placed stent. 3. Successful ad hoc angioplasty and stenting with excellent angiographic result after deployment of an additional 4.0 mm drug-eluting stent. 4. The patient has multiple additional lesions in the right coronary and circumflex systems for medical therapy, and future consideration of multivessel revascularization as indicated. TID: [id number] RECEIPT: [id number] NARESH
[2021-10-25] MEDS ORDERED: FUROSEMIDE 40 MG/4 ML INJ IV SCH (18:00)
[2021-10-25] MEDS: MORPHINE 2 MG/1 ML INJ IV PRN (19:57)
[2021-10-26 05:59] LABS: Basophils # (Auto) 0.1 K/mm3 (0.0-0.1); Basophils % (Auto) 0.7 % (0.0-1.8); Eosinophils # (Auto) 0.2 K/mm3 (0.0-0.4); Eosinophils % (Auto) 2.9 % (0.0-4.3); Hematocrit 33.9 % (35.5-45.6); Hemoglobin 11.5 gm/dl (11.8-15.2); Lymphocytes # (Auto) 2.2 K/mm3 (1.2-5.4); Mean Corpuscular HGB Conc 34 % (32-34); Mean Corpuscular Volume 92 fl (84-94); Monocytes # (Auto) 0.7 K/mm3 (0.0-0.8); Monocytes % (Auto) 8.7 % (0.0-7.3); Platelet Count 158 K/mm3 (140-440); Red Blood Count 3.69 M/mm3 (3.65-5.03); Red Cell Distribution Width 16.5 % (13.2-15.2)
[2021-10-26 06:24] LABS: BUN/Creatinine Ratio 14; Blood Urea Nitrogen 18 mg/dL (9-20); Calcium 8.8 mg/dL (8.4-10.2); Hemolysis Index 2
--- NOTE | 2021-10-26 08:13 | XRay Report ---
CHEST 1 VIEW 10/26/2021 7:57 AM INDICATION / CLINICAL INFORMATION: post pci. COMPARISON: October 17, 2021 FINDINGS: SUPPORT DEVICES: None. HEART / MEDIASTINUM: No significant abnormality. LUNGS / PLEURA: Mild increased pulmonary vascularity No pneumothorax. ADDITIONAL FINDINGS: No significant additional findings. IMPRESSION: 1. No acute findings. Signer Name: Iglesia Chacko MD Signed: 10/26/2021 8:08 AM Workstation Name: [email or web address]
--- NOTE | 2021-10-26 08:52 | Progress Note ---
Assessment and Plan Assessment and plan: History of present illness: 61-year-old male with past medical history of recent NSTEMI , ischemic cardiomyopathy, hypertension, history of cardiac a stent who presents emergency department complaint of chest pain. Patient reports that he has substernal chest pain that is pressure-like in nature. He also has some right hand numbness. He reports that his pain is currently 8 out of 10. He notes that he has had diaphoresis but no nausea. He states that he does have stents placed and states he has a cardiology at this hospital. Patient states the pain started at 6 PM while he was sitting. Work-up in the emergency room today, chest x-ray mild congestion. Lab reveals elevated troponin of 0.329. Patient has been started on heparin drip and being admitted for NSTEMI. Hospital Course: 10/25: Hold nettie- i due to renal function. EKG demonstrates QS waves, cardiology believes possible re-occluded LAD. plan for cath today will follow up post cath. Recommend post cath 500 cc bolus. Renal panel ordered for tomorrow. 10/26: Discussed cath results with Dr. Sands. Aggrastat now d/c. Recommends we observe the patient for additional night given territory of infarct and delayed recognition. Continuous monitor on tele. Cr improved 1.5-> 1.3, repeat bmp ordered for AM. Would recommend holding nettie-I one more day. Can potentially restart tomorrow or on discharge. Assessment and Plan: #NSTEMI #Acute coronary syndrome #CAD -Has a history of cardiac stents EKG demonstrated QS waves, troponin 0.329 - not an active chest pain by the time of my encounter suspect infarct is completed Cardiology has emergently elected to take patient to [facility] we will follow- up findings Recommend guideline directed therapy with aspirin, Brilinta, BB, nettie-i and statin, imdur, ranexa -Cardiology consulted on admission, Dr. Sands following #Chronic systolic heart failure #Heart failure with reduced ejection fraction - 05/2021 ECHO EF:15-20% Chest x-ray demonstrates pulmonary vascular congestion - GDMT: lasix, spironalactone, coreg. hold lisinopril #Hypertension -Resume all home medications except for lisinopril Blood pressure well controlled thus far this admission #Acute kidney injury - Admission Cr: 1.4, Baseline Cr: 1.0 - avoid nephrotoxic agents, hold nettie-i at this time - monitor I/O's - renal adjust medications - daily renal profile -Would recommend 500 cc bolus pre and post-cath based on Manuel Score -If renal function worsens, will consult nephrology #Nicotine Abuse +15 min smoking/nicotine abuse cessation counseling. Advised on quitting strategies as well as benefits to overall health. #Advance care planning Disease education conducted, care plan discussed, diagnoses discussed, prognosis discussed, patient is full code, patient acknowledges understanding and agree with care plan, discussed about patient clinical course and answered all questions to satisfaction. +30 minutes. +30 minutes. Disposition Plan: tele Total Time Spent with Patient (Minutes): 35 History Interval history: Patient complained of CP overnight. This AM more comfortable however tearful re: currently state of health. Hospitalist Physical - Physical exam Narrative exam: Physical Exam: VITAL SIGNS: Reviewed. GENERAL: The patient appears normally developed, Vital signs as documented. HEAD: No signs of head trauma. EYES: Pupils are equal. Extraocular motions intact. EARS: Hearing grossly intact. MOUTH: Oropharynx is normal. NECK: No adenopathy, no JVD. CHEST: Chest with clear breath sounds bilaterally. No wheezes, rales, or rhonchi. CARDIAC: Regular rate and rhythm. S1 and S2, without murmurs, gallops, or rubs. VASCULAR: No Edema. Peripheral pulses normal and equal in all extremities. ABDOMEN: Soft, non tender and non distended. No rebound or guarding, and no masses palpated. Bowel Sounds normal. MUSCULOSKELETAL: Good range of motion of all major joints. Extremities without clubbing, cyanosis or edema. NEUROLOGIC EXAM: Alert and oriented x 4. no focal sensory or strength deficits. PSYCHIATRIC: Mood normal. SKIN: detail exam as documented in skin assessment - Constitutional Vitals: Temp Pulse Resp BP Pulse Ox 98.3 F 100 H 18 110/83 96 10/26/21 07:38 10/26/21 07:38 10/26/21 07:38 10/26/21 07:38 10/26/21 07:38 General appearance: Present: mild distress HEART Score - HEART Score EKG: Non-specific Age: 45-65 Risk factors: > 3 risk factors or hx of atherosclerotic disease Troponin: Troponin T 1.150 ng/mL (0.00-0.029) H* 10/26/21 04:44 Troponin: > 3x normal limit Results - Labs CBC & Chem 7: 10/26/21 04:44 10/26/21 04:44 Labs: Laboratory Last Values WBC 8.4 K/mm3 (4.5-11.0) 10/26/21 04:44 RBC 3.69 M/mm3 (3.65-5.03) 10/26/21 04:44 Hgb 11.5 gm/dl (11.8-15.2) L 10/26/21 04:44 Hct 33.9 % (35.5-45.6) L 10/26/21 04:44 MCV 92 fl (84-94) 10/26/21 04:44 MCH 31 pg (28-32) 10/26/21 04:44 MCHC 34 % (32-34) 10/26/21 04:44 RDW 16.5 % (13.2-15.2) H 10/26/21 04:44 Plt Count 158 K/mm3 (140-440) 10/26/21 04:44 Lymph % (Auto) 26.0 % (13.4-35.0) 10/26/21 04:44 [place] % (Auto) 8.7 % (0.0-7.3) H 10/26/21 04:44 Eos % (Auto) 2.9 % (0.0-4.3) 10/26/21 04:44 Baso % (Auto) 0.7 % (0.0-1.8) 10/26/21 04:44 Lymph # (Auto) 2.2 K/mm3 (1.2-5.4) 10/26/21 04:44 [place] # (Auto) 0.7 K/mm3 (0.0-0.8) 10/26/21 04:44 Eos # (Auto) 0.2 K/mm3 (0.0-0.4) 10/26/21 04:44 Baso # (Auto) 0.1 K/mm3 (0.0-0.1) 10/26/21 04:44 Seg Neutrophils % 61.7 % (40.0-70.0) 10/26/21 04:44 Seg Neutrophils # 5.2 K/mm3 (1.8-7.7) 10/26/21 04:44 PT 13.5 Sec. (12.2-14.9) 10/25/21 03:20 INR 0.93 (0.87-1.13) 10/25/21 03:20 APTT 28.3 Sec. (24.2-36.6) 10/25/21 03:20 D-Dimer 354.78 ng/mlDDU (0-234) H 10/24/21 23:26 Heparin Anti-Xa Level 0.83 U.I./ml (0.3-0.7) H 10/25/21 15:08 Sodium 142 mmol/L (137-145) 10/26/21 04:44 Potassium 4.0 mmol/L (3.6-5.0) 10/26/21 04:44 Chloride 106.8 mmol/L (98-107) 10/26/21 04:44 Carbon Dioxide 24 mmol/L (22-30) 10/26/21 04:44 Anion Gap 15 mmol/L 10/26/21 04:44 BUN 18 mg/dL (9-20) 10/26/21 04:44 Creatinine 1.3 mg/dL (0.8-1.3) 10/26/21 04:44 Estimated GFR > 60 ml/min 10/26/21 04:44 BUN/Creatinine Ratio 14 % 10/26/21 04:44 Glucose 112 mg/dL (75-100) H 10/26/21 04:44 Calcium 8.8 mg/dL (8.4-10.2) 10/26/21 04:44 Magnesium 1.80 mg/dL (1.7-2.3) 10/25/21 01:49 Total Bilirubin 0.60 mg/dL (0.1-1.2) 10/24/21 23:26 AST 34 units/L (5-40) 10/24/21 23:26 ALT 21 units/L (7-56) 10/24/21 23:26 Alkaline Phosphatase 104 units/L (35-129) 10/24/21 23:26 Troponin T 1.150 ng/mL (0.00-0.029) H* 10/26/21 04:44 NT-Pro-B Natriuret Pep 6150 pg/mL (0-900) H 10/25/21 01:49 Total Protein 7.0 g/dL (6.3-8.2) 10/24/21 23:26 Albumin 4.1 g/dL (3.9-5) 10/24/21 23:26 Albumin/Globulin Ratio 1.4 % 10/24/21 23:26 Triglycerides 112 mg/dL (2-149) 10/25/21 01:49 Cholesterol 138 mg/dL (50-199) 10/25/21 01:49 LDL Cholesterol Direct 71 mg/dL (50-130) 10/25/21 01:49 HDL Cholesterol 52 mg/dL (40-59) 10/25/21 01:49 Cholesterol/HDL Ratio 2.65 % 10/25/21 01:49 [place]/IV: Voiding Method Toilet Active Medications - Current Medications Current Medications: Generic Name Dose Route Start Last Admin Trade Name Freq PRN Reason Stop Dose Admin Acetaminophen 650 mg 10/25/21 04:01 10/25/21 21:17 Acetaminophen 325 Mg Tab PO 650 mg Q6H PRN Administration Pain, Mild (1-3) Aspirin 81 mg 10/25/21 10:00 10/25/21 10:37 Aspirin Ec 81 Mg Tab PO 81 mg QDAY [facility] Administration Atorvastatin Calcium 40 mg 10/25/21 22:00 10/25/21 21:12 Atorvastatin 40 Mg Tab PO 40 mg QHS [facility] Administration Carvedilol 3.125 mg 10/25/21 08:00 10/25/21 16:15 Carvedilol 3.125 Mg Tab PO 3.125 mg BID@0800,1700 K[facility]ITH[facility] Administration Furosemide 40 mg 10/26/21 10:00 Furosemide 40 Mg Tab PO QDAY K[facility]ITH[facility] Isosorbide Mononitrate 20 mg 10/25/21 10:00 10/25/21 12:24 Isosorbide Mononitrate 20 Mg Tab PO Not Given QDAY [facility] Morphine Sulfate 2 mg 10/25/21 04:01 10/25/21 19:57 Morphine 2 Mg/1 Ml Inj IV 2 mg Q5MIN PRN Administration Chest Pain unrelieved by NTG Nitroglycerin 0.4 mg 10/25/21 04:01 10/25/21 15:36 Nitroglycerin 0.4 Mg Tab Subl SL 0.4 mg Q5M PRN Administration Chest Pain Ranolazine 500 mg 10/25/21 10:00 10/25/21 21:12 Ranolazine Er 500 Mg Tab 12hr PO 500 mg BID KAVITHA Administration Sodium Chloride 10 ml 10/25/21 04:01 10/25/21 19:59 Sodium Chloride 0.9% 10 Ml Flush Syringe IV 10 ml PRN PRN Administration LINE FLUSH Spironolactone 25 mg 10/25/21 10:00 10/25/21 12:23 Spironolactone 25 Mg Tab PO Not Given QDAY [facility] Ticagrelor 90 mg 10/25/21 10:00 10/25/21 21:12 Ticagrelor 90 Mg Tab PO 90 mg BID K[facility]ITHA Administration Tramadol HCl 50 mg 10/25/21 04:01 Tramadol 50 Mg Tab PO Q6H PRN Pain, Moderate (4-6)
--- NOTE | 2021-10-26 09:22 | Progress Note ---
Assessment and Plan - Patient Problems (1) Acute coronary syndrome Current Visit: Yes Status: Acute Plan to address problem: 61-year-old man with coronary artery disease, admitted from the emergency room with chest pain and unstable coronary syndrome with an anterior wall injury pattern, see full consult note for details. We performed cardiac catheterization yesterday with successful coronary stenting of a greater than 99% stenosis of the proximal LAD. The lesion represented a proximal border restenosis of a previous stent. Successful additional stenting using a 4.0 mm drug-eluting stent. With respect to dual antiplatelet therapy, will continue baby aspirin and Brilinta, current event did not represent late thrombosis. Continue other guideline directed medical therapy. The patient should be watched for another 24 hours, and his GIANNA inhibitor should be resumed prior to discharge tomorrow if creatinine remains stable. I have advised the patient on the importance of outpatient cardiac follow-up either with his primary heel splitter at [place], or with our office here in [place]. He needs further evaluation and management of his severe underlying cardiomyopathy, and multivessel coronary artery disease in the outpatient setting. Subjective Date of service: 10/26/21 Principal diagnosis: Acute coronary syndrome Interval history: Patient looks and feels better today, no further chest pain following LAD intervention. He has completed the Aggrastat protocol. His creatinine this mo rning has normalized, 1.3. Objective Vital Signs Temp Pulse Resp BP Pulse Ox 10/26/21 07:38 98.3 F 100 H 18 110/83 96 10/26/21 04:01 97.5 F L 90 18 108/76 94 10/26/21 00:01 98.3 F 102 H 18 114/83 95 10/25/21 22:40 96 10/25/21 21:20 90 10/25/21 21:19 101.3 F H 10/25/21 20:10 100.1 F H 112 H 18 117/83 96 10/25/21 18:00 97 10/25/21 16:49 98.7 F 104 H 18 125/90 92 10/25/21 13:30 96 H - Physical Examination HEENT: Positive: PERRL Neck: Positive: neck supple Cardiac: Positive: Reg Rate and Rhythm Lungs: Positive: Decreased Breath Sounds Neuro: Positive: Grossly Intact Abdomen: Positive: Soft Skin: Positive: Clear Extremities: Absent: edema - Labs and Meds CBC 10/26/21 Range/Units 04:44 WBC 8.4 (4.5-11.0) K/mm3 RBC 3.69 (3.65-5.03) M/mm3 Hgb 11.5 L (11.8-15.2) gm/dl Hct 33.9 L (35.5-45.6) % Plt Count 158 (140-440) K/mm3 Lymph # (Auto) 2.2 (1.2-5.4) K/mm3 [place] # (Auto) 0.7 (0.0-0.8) K/mm3 Eos # (Auto) 0.2 (0.0-0.4) K/mm3 Baso # (Auto) 0.1 (0.0-0.1) K/mm3 Comprehensive Metabolic Panel 10/26/21 Range/Units 04:44 Sodium 142 (137-145) mmol/L Potassium 4.0 (3.6-5.0) mmol/L Chloride 106.8 (98-107) mmol/L Carbon Dioxide 24 (22-30) mmol/L BUN 18 (9-20) mg/dL Creatinine 1.3 (0.8-1.3) mg/dL Glucose 112 H (75-100) mg/dL Calcium 8.8 (8.4-10.2) mg/dL
--- NOTE | 2021-10-26 11:17 | Electrocardiograph Report ---
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
--- NOTE | 2021-10-26 11:20 | Electrocardiograph Report ---
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
[2021-10-26] MEDS: TICAGRELOR 90 MG TAB PO SCH ×2 (11:27→22:20)
[2021-10-26] MEDS: FUROSEMIDE 40 MG TAB PO SCH (11:27)
[2021-10-26] MEDS: RANOLAZINE ER 500 MG TAB 12HR PO SCH ×2 (11:28→22:20)
[2021-10-26] MEDS: carvediloL 3.125 MG TAB PO SCH (11:28)
[2021-10-26] MEDS: ASPIRIN EC 81 MG TAB PO SCH (11:28)
[2021-10-26] MEDS: SPIRONOLACTONE 25 MG TAB PO SCH (11:28)
[2021-10-27 05:39] LABS: Hematocrit 34.9 % (35.5-45.6); Hemoglobin 11.7 gm/dl (11.8-15.2)
[2021-10-27 05:58] LABS: BUN/Creatinine Ratio 14; Blood Urea Nitrogen 17 mg/dL (9-20); Calcium 9.1 mg/dL (8.4-10.2); Hemolysis Index 1
[2021-10-27] MEDS: carvediloL 3.125 MG TAB PO SCH ×2 (07:07→09:19)
[2021-10-27] MEDS: MORPHINE 2 MG/1 ML INJ IV PRN (07:24)
[2021-10-27] MEDS: SPIRONOLACTONE 25 MG TAB PO SCH (09:18)
[2021-10-27] MEDS: FUROSEMIDE 40 MG TAB PO SCH (09:19)
[2021-10-27] MEDS: TICAGRELOR 90 MG TAB PO SCH (09:19)
[2021-10-27] MEDS: ASPIRIN EC 81 MG TAB PO SCH (09:19)
[2021-10-27] MEDS: RANOLAZINE ER 500 MG TAB 12HR PO SCH (09:19)
--- NOTE | 2021-10-27 10:10 | Progress Note ---
Assessment and Plan 1. Status post acute anterior ST elevation myocardial infarction 2. Status post cardiac cath with PCI and stenting of the proximal LAD stenosis 3. Chronic combined systolic and diastolic heart failure 4. Dilated ischemic cardiomyopathy 5. Essential hypertension Plan. Patient is currently stable post PCI. Continue dual antiplatelet therapy as well as GDMT for his dilated ischemic cardiomyopathy Subjective Date of service: 10/27/21 Principal diagnosis: Acute coronary syndrome Interval history: patient is stable has some mild chest pains and as per his nurse had recieved some IV Morphine. otherwise feels fine now. Objective Vital Signs Temp Pulse Resp BP Pulse Ox 10/27/21 08:11 98.7 F 92 H 18 111/79 97 10/27/21 07:29 98 10/27/21 04:00 98.5 F 94 H 18 112/73 98 10/26/21 22:00 98 10/26/21 21:47 99 10/26/21 19:37 98.4 F 100 H 20 112/81 97 10/26/21 14:46 98 - Physical Examination HEENT: Positive: PERRL Neck: Positive: neck supple Cardiac: Positive: Regular Rate, S1/S2, S3, PMI, Dilated, Laterally Displaced Lungs: Positive: clear to auscultation, No Wheeze, Rales, Rhonchi Neuro: Positive: Grossly Intact Abdomen: Positive: Soft Skin: Positive: Clear Extremities: Absent: edema - Labs and Meds CBC 10/27/21 Range/Units 04:25 Hgb 11.7 L (11.8-15.2) gm/dl Hct 34.9 L (35.5-45.6) % Plt Count 167 (140-440) K/mm3 Comprehensive Metabolic Panel 10/27/21 Range/Units 04:25 Sodium 140 (137-145) mmol/L Potassium 3.7 (3.6-5.0) mmol/L Chloride 103.4 (98-107) mmol/L Carbon Dioxide 23 (22-30) mmol/L BUN 17 (9-20) mg/dL Creatinine 1.2 (0.8-1.3) mg/dL Glucose 100 (75-100) mg/dL Calcium 9.1 (8.4-10.2) mg/dL
[2021-10-27 11:49] VITALS: BP 97/66
--- NOTE | 2021-10-27 13:05 | Discharge Summary ---
Providers - Providers Date of Admission: 10/25/21 04:01 Date of discharge: 10/27/21 Attending physician: SAMIR PICKERING MD 10/25/21 Consult to Cardiac Rehabilitation [CONS] Routine Reason For Exam: Phase I Consult to Cardiac Rehabilitation [CONS] Routine Reason For Exam: post pci 10/25/21 04:01 Consult to Cardiology [CONS] Routine Consulting Provider: LICHA CHUA Reason For Exam: Elevated troponin Primary care physician: [employer] Hospitalization Reason for admission: Acute anterior STEMI, KEARA Condition: Stable Pertinent studies: Reviewed. Procedures: Left heart catheterization with placement of drug-eluting stent into proximal LAD. Hospital course: Patient is a 61-year-old male past medical history of NSTEMI, ischemic cardiomyopathy, hypertension, CAD complicated by stent, nicotine dependence who presented to the ED with complaints of chest pain that was substernal and pressure-like in nature. Patient also described having right hand numbness and described his pain as 8 out of 10. He admitted to having diaphoresis but denied any nausea. In the ED, the patient was found to be hemodynamically stable but mildly tachycardic to 102. Patient had labs that were remarkable for troponin of 0.329 that eventually increased to a max of 1.150, suggestive of NSTEMI. Patient was also found to have a proBNP of 6150. Cardiology was consulted for further management. Patient presented with a creatinine of 1.5 suggestive of KEARA. Patient underwent left heart catheterization (10/25/2021) revealing 99% stenosis of the proximal LAD representing occlusive proximal border restenosis of the previous stent implanted approximately 9 months ago. The lesion was treated with an additional drug-eluting stent. Afterwards the patient was treated with Aggrastat for approximately 18 hours. Patient will continue goal- directed medical therapy with aspirin and Plavix. Patient is medically clear for discharge. Disposition: HOME / SELF CARE / HOMELESS Final Discharge Diagnosis (Prints w/discharge instructions): Acute anterior ST elevation myocardial infarction, status post PCI and stenting of the proximal LAD stenosis, chronic combined systolic and diastolic heart failure, dilated ischemic cardiomyopathy, hypertension, nicotine dependence, KEARA Time spent for discharge: 45 min Core Measure Documentation - Palliative Care Palliative Care/ Comfort Measures: Not Applicable - Core Measures Any of the following diagnoses?: acute MS - Acute MS Discharge Requirements Aspirin at discharge: Yes GIANNA/ARB for LVSD if EF <40%: Yes Beta king at discharge: Yes Statin for LDL = or >100 mg/dl on DC: Yes Exam - Constitutional Vitals: Temp Pulse Resp BP Pulse Ox 97.3 F L 86 18 97/66 95 10/27/21 11:44 10/27/21 11:44 10/27/21 08:11 10/27/21 11:44 10/27/21 11:44 General appearance: Present: no acute distress, well-nourished - EENT Eyes: Present: PERRL, EOM intact ENT: hearing intact, clear oral mucosa, dentition normal - Neck Neck: Present: supple, normal ROM - Respiratory Respiratory effort: normal Respiratory: bilateral: CTA - Cardiovascular Rhythm: regular Heart Sounds: Present: S1 & S2 - Extremities Extremities: no ischemia, pulses intact, pulses symmetrical, No edema, normal temperature, normal color, Full ROM Peripheral Pulses: within normal limits - Abdominal General gastrointestinal: Present: soft, non-tender, non-distended, normal bowel sounds Male genitourinary: Present: deferred - Rectal Rectal Exam: deferred - Integumentary Integumentary: Present: clear, warm, dry - Musculoskeletal Musculoskeletal: strength equal bilaterally - Psychiatric Psychiatric: appropriate mood/affect, cooperative - Neurologic Neurologic: CNII-XII intact, moves all extremities - Allied Health Allied health notes reviewed: nursing Plan Activity: advance as tolerated Diet: low salt Additional Instructions: Patient is a 61-year-old male past medical history of NSTEMI, ischemic cardiomyopathy, hypertension, CAD complicated by stent, nicotine dependence who presented to the ED with complaints of chest pain that was substernal and pressure-like in nature. Patient also described having right hand numbness and described his pain as 8 out of 10. He admitted to having diaphoresis but denied any nausea. In the ED, the patient was found to be hemodynamically stable but mildly tachycardic to 102. Patient had labs that were remarkable for troponin of 0.329 that eventually increased to a max of 1.150, suggestive of NSTEMI. Patient was also found to have a proBNP of 6150. Cardiology was consulted for further management. Patient presented with a creatinine of 1.5 suggestive of KEARA. Patient underwent left heart catheterization (10/25/2021) revealing 99% stenosis of the proximal LAD representing occlusive proximal border restenosis of the previous stent implanted approximately 9 months ago. The lesion was treated with an additional drug-eluting stent. Afterwards the patient was treated with Aggrastat for approximately 18 hours. Patient will continue goal-directed medical therapy with aspirin and Plavix. Patient is medically clear for discharge. Care Plan Goals: Patient is medically clear for discharge. Assessment: Patient is a 61-year-old male past medical history of NSTEMI, ischemic cardiomyopathy, hypertension, CAD complicated by stent, nicotine dependence who presented to the ED with complaints of chest pain that was substernal and pressure-like in nature. Patient also described having right hand numbness and described his pain as 8 out of 10. He admitted to having diaphoresis but denied any nausea. In the ED, the patient was found to be hemodynamically stable but mildly tachycardic to 102. Patient had labs that were remarkable for troponin of 0.329 that eventually increased to a max of 1.150, suggestive of NSTEMI. Patient was also found to have a proBNP of 6150. Cardiology was consulted for further management. Patient presented with a creatinine of 1.5 suggestive of KEARA. Patient underwent left heart catheterization (10/25/2021) revealing 99% stenosis of the proximal LAD representing occlusive proximal border restenosis of the previous stent implanted approximately 9 months ago. The lesion was treated with an additional drug-eluting stent. Afterwards the patient was treated with Aggrastat for approximately 18 hours. Patient will continue goal- directed medical therapy with aspirin and Plavix. Patient is medically clear for discharge. Follow up with: PRIMARY CARE, [Primary Care Provider] - 3-5 Days Forms: Work/School Release Form Prescriptions: AtorvaSTATin [Lipitor] 40 mg PO QHS #30 tablet Spironolactone [Aldactone] 25 mg PO QDAY 30 Days #30 tablet carvediloL [Coreg] 3.125 mg PO BID 30 Days #60 tablet Aspirin EC [Halfprin EC] 81 mg PO QDAY 30 Days #30 tablet Furosemide [Lasix TAB] 40 mg PO QDAY #30 tablet ISOSORBIDE MONOnitrate [Monoket] 20 mg PO QDAY 30 Days #30 tablet Ranolazine ER [Ranexa ER] 500 mg PO BID 30 Days #60 tablet lisinopriL [Zestril TAB] 5 mg PO QDAY 30 Days #30 tablet
== END 2021-10-27 15:15 | disposition home or self-care (01) | DRG 247 ==
LOC: ED 23:01 → 4A 10-25 04:01
PROVIDERS: ADMIT Hospitalist; ATTEND Student in an Organized Health Care Education/Training Program
PROC: 4A023N7 Measurement of Cardiac Sampling and Pressure, Left Heart, Percutaneous Approach (ICD-10-PCS; principal; 2021-10-25)
PROC: 027034Z Dilation of Coronary Artery, One Artery with Drug-eluting Intraluminal Device, Percutaneous Approach (ICD-10-PCS; 2021-10-25)
PROC: B2111ZZ Fluoroscopy of Multiple Coronary Arteries using Low Osmolar Contrast (ICD-10-PCS; 2021-10-25)
DX: I21.4 Non-ST elevation (NSTEMI) myocardial infarction (principal); N17.9 Acute kidney failure, unspecified; I50.42 Chronic combined systolic (congestive) and diastolic (congestive) heart failure; I42.0 Dilated cardiomyopathy; I25.10 Atherosclerotic heart disease of native coronary artery without angina pectoris; I25.5 Ischemic cardiomyopathy; I11.0 Hypertensive heart disease with heart failure; Z71.6 Tobacco abuse counseling; F17.200 Nicotine dependence, unspecified, uncomplicated; Z79.82 Long term (current) use of aspirin; Z82.49 Family history of ischemic heart disease and other diseases of the circulatory system; Z79.899 Other long term (current) drug therapy
CPT/HCPCS: 36415; 71045; 71046; 80048; 80053; 80061; 83735; 83880; 84484; 85014; 85018; 85025; 85049; 85379; 85520; 85610; 85730; 92928; 93005; 93458; 94760; G0378; J1815; J3490; C1769; C1874; C1887; C1894; C9600; J1644; J2250; J2270; J3010; J3246; J7040; Q9967